=== PATIENT | female | born 1945 | race Caucasian/White ===

== ENCOUNTER → 2019-12-04 09:53 | Outpatient (BNVA) | payer MEDICARE, SELFPAY | PROVIDERS: PCP Internal Medicine; Referring Provider Internal Medicine; Visit Provider Dietitian, Registered | DX: Z76.89 Persons encountering health services in other specified circumstances (principal) ==

== ENCOUNTER 2019-12-17 13:01 | Outpatient (REF) | payer MEDICARE, SELFPAY ==
--- NOTE | 2019-12-17 13:06 | XR_ITS ---
EXAMINATION: XR CHEST CLINICAL INFORMATION: Pneumonia COMPARISON: Chest x-ray 11/01/2017 TECHNIQUE: 2 views of the chest were obtained. FINDINGS: Cardiac silhouette is normal in size. The lungs are adequately aerated. There is no lobar consolidation. No pleural effusion or pneumothorax. Mild to moderate degenerative changes of the spine. XR/XR chest 2V IMPRESSION: No acute pulmonary pathology.
== END 2019-12-17 13:02 | disposition home or self-care (01) ==
LOC: HO.HMGCX 13:01
PROVIDERS: PCP Internal Medicine; Visit Provider Internal Medicine
DX: J18.9 Pneumonia, unspecified organism (principal)
CPT/HCPCS: 71046

== ENCOUNTER → 2020-01-20 14:39 | Outpatient (BNVA) | payer MEDICARE, SELFPAY | PROVIDERS: PCP Internal Medicine; Referring Provider Internal Medicine; Visit Provider Dietitian, Registered | DX: Z76.89 Persons encountering health services in other specified circumstances (principal) ==

== ENCOUNTER 2020-02-25 06:37 | Outpatient (REF) | payer MEDICARE, SELFPAY | END 2020-02-25 06:38 | disposition home or self-care (01) | LOC: HO.LAB 06:37 | PROVIDERS: PCP Internal Medicine; Visit Provider Internal Medicine | DX: Z20.828 Contact with and (suspected) exposure to other viral communicable diseases (principal) | CPT/HCPCS: 36415; C9803; U0003 ==

== ENCOUNTER 2020-07-01 08:39 | Outpatient (REF) | payer MEDICARE, SELFPAY ==
[2020-07-01 10:15] LABS: Alanine Aminotransferase 23 U/L (0-31); Alkaline Phosphatase 105 U/L (39-117); Anion Gap 14 (12-20); Aspartate Amino Transferase 17 U/L (5-31); Blood Urea Nitrogen 24 mg/dL (9-16); Calcium 9.3 mg/dL (8.4-10.2); Carbon Dioxide 31 mmol/L (22-29); Chloride 105 mmol/L (96-108); Cholesterol 164 mg/dL; Estimated Glomerular Filt Rate 53; Glucose Fasting 110 mg/dL (60-99); HDL Cholesterol 54 mg/dL; LDL Cholesterol Calculated 87 mg/dl; Potassium 4.6 mmol/L (3.3-5.1); Sodium 145 mmol/L (135-145); Total Protein 6.6 g/dL (6.5-8.0); Triglycerides 115 mg/dL
[2020-07-01 10:24] LABS: Bilirubin Total 0.7 mg/dL (0.0-1.0)
== END 2020-07-01 08:40 | disposition home or self-care (01) ==
LOC: HO.LAB 08:39
PROVIDERS: PCP Internal Medicine; Visit Provider Internal Medicine
DX: E78.5 Hyperlipidemia, unspecified (principal); J45.909 Unspecified asthma, uncomplicated
CPT/HCPCS: 36415; 80053; 80061

== ENCOUNTER 2020-08-29 09:48 | Outpatient (REF) | payer MEDICARE, SELFPAY ==
--- NOTE | ~2020-08-29 | XR_ITS ---
EXAMINATION: XR LUMBAR SPINE. XR HIP, RIGHT. CLINICAL INFORMATION: Dorsalgia. Hip pain. COMPARISON: None TECHNIQUE: 3 views of the lumbar spine. AP and frog-lateral views of the right hip. FINDINGS: Lumbar spine: Moderate to severe multilevel degenerative disc disease and advanced facet arthropathy with grade 1 anterolisthesis of L4-L5. No acute osseous abnormality. Right hip: Moderate osteoarthritis with prominent osteophytes along the superior acetabular rim. Joint space narrowing is mild. No fracture or focal osseous lesion. Normal alignment. XR/XR hip RT min 2V IMPRESSION: Moderate to severe multilevel degenerative disc disease of the lumbar spine with facet arthrosis and grade 1 L4-L5 anterolisthesis. No acute osseous abnormality. Moderate right hip osteoarthritis. No acute abnormality.
--- NOTE | ~2020-08-29 | XR_ITS ---
EXAMINATION: XR LUMBAR SPINE. XR HIP, RIGHT. CLINICAL INFORMATION: Dorsalgia. Hip pain. COMPARISON: None TECHNIQUE: 3 views of the lumbar spine. AP and frog-lateral views of the right hip. FINDINGS: Lumbar spine: Moderate to severe multilevel degenerative disc disease and advanced facet arthropathy with grade 1 anterolisthesis of L4-L5. No acute osseous abnormality. Right hip: Moderate osteoarthritis with prominent osteophytes along the superior acetabular rim. Joint space narrowing is mild. No fracture or focal osseous lesion. Normal alignment. XR/XR lumbar spine 2-3V IMPRESSION: Moderate to severe multilevel degenerative disc disease of the lumbar spine with facet arthrosis and grade 1 L4-L5 anterolisthesis. No acute osseous abnormality. Moderate right hip osteoarthritis. No acute abnormality.
== END 2020-08-29 09:49 | disposition home or self-care (01) ==
LOC: HO.HMGCX 09:48
PROVIDERS: PCP Internal Medicine; Visit Provider Hospitalist
DX: M54.9 Dorsalgia, unspecified (principal)
CPT/HCPCS: 72100; 73502

== ENCOUNTER 2020-09-15 08:14 | Outpatient (REF) | payer MEDICARE, MEDICAID, SELFPAY ==
[2020-09-15 08:54] LABS: Hematocrit 32.6 % (37-47); Hemoglobin 10.6 g/dl (12.0-16.0); Mean Corpuscular HGB Conc 32.5 g/dl (31.0-35.0); Mean Corpuscular Hemoglobin 30.9 pg (27.0-33.0); Mean Platelet Volume 9.9 fL (9.4-12.3); Platelet Count 338 X10*3/uL (160-400); Red Blood Count 3.43 X10*6/uL (4.20-5.50); Red Cell Distribution Width 14.1 % (11.0-16.0)
[2020-09-15 09:01] LABS: Estimated Average Glucose 105 mg/dL; Hemoglobin A1c % 5.3 %
[2020-09-15 09:45] LABS: Alanine Aminotransferase 21 U/L (0-31); Albumin Level 4.1 g/dL (3.5-5.0); Alkaline Phosphatase 120 U/L (39-117); Anion Gap 12 (12-20); Aspartate Amino Transferase 22 U/L (5-31); Bilirubin Total 0.5 mg/dL (0.0-1.0); Blood Urea Nitrogen 31 mg/dL (9-16); Calcium 9.3 mg/dL (8.4-10.2); Carbon Dioxide 29 mmol/L (22-29); Chloride 106 mmol/L (96-108); Estimated Glomerular Filt Rate 44; Glucose Fasting 110 mg/dL (60-99); Potassium 4.7 mmol/L (3.3-5.1); Sodium 142 mmol/L (135-145); Total Protein 6.9 g/dL (6.5-8.0)
== END 2020-09-15 08:15 | disposition home or self-care (01) ==
LOC: HO.LAB 08:14
PROVIDERS: PCP Internal Medicine; Visit Provider Internal Medicine
DX: E78.5 Hyperlipidemia, unspecified (principal); F32.9 Major depressive disorder, single episode, unspecified; J45.909 Unspecified asthma, uncomplicated; R73.9 Hyperglycemia, unspecified
CPT/HCPCS: 36415; 80053; 83036; 85027

== ENCOUNTER 2020-10-15 10:47 | Outpatient (REF) | payer MEDICARE, MEDICAID, SELFPAY ==
[2020-10-15 12:03] LABS: Hematocrit 35.9 % (37-47); Hemoglobin 11.7 g/dl (12.0-16.0); Mean Corpuscular HGB Conc 32.6 g/dl (31.0-35.0); Mean Corpuscular Hemoglobin 30.3 pg (27.0-33.0); Mean Platelet Volume 10.3 fL (9.4-12.3); Platelet Count 303 X10*3/uL (160-400); Red Blood Count 3.86 X10*6/uL (4.20-5.50); White Blood Count 4.5 X10*3/uL (4.8-10.8)
[2020-10-15 12:39] LABS: Anion Gap 11 (12-20); Blood Urea Nitrogen 23 mg/dL (9-16); Calcium 9.3 mg/dL (8.4-10.2); Carbon Dioxide 29 mmol/L (22-29); Chloride 107 mmol/L (96-108); Estimated Glomerular Filt Rate 48; Glucose Random 121 mg/dL (60-115); Iron 63 mcg/dL (30-160); Percent Iron Saturation 16 % (15-50); Potassium 5.2 mmol/L (3.3-5.1); Sodium 142 mmol/L (135-145); Total Iron Binding Capacity 399 mcg/dL (228-428); Unsaturated Iron Binding 336 ug/dL
[2020-10-15 13:26] LABS: Glucose Urine UA NEG (NEG); Leukocyte Esterase Urine TRACE (NEG); Nitrite Urine NEG (NEG); Specific Gravity - Urine <= 1.005 (1.005-1.025); UACC Culture Trigger YES; Urine Blood NEG (NEG); Urine Ketones NEG (NEG); Urine Protein TRACE MG/DL (NEG-TRACE)
[2020-10-15 13:30] LABS: Appearance Urine CLEAR; Color Urine YELLOW
[2020-10-15 13:43] LABS: Mucus Urine 1+ /LPF; RBC Urine 0 /HPF (0); Squamous Epithelial Cell Urine 2+ /LPF
== END 2020-10-15 10:48 | disposition home or self-care (01) ==
LOC: HO.LAB 10:47
PROVIDERS: PCP Internal Medicine; Visit Provider Internal Medicine
DX: I35.0 Nonrheumatic aortic (valve) stenosis (principal); I25.10 Atherosclerotic heart disease of native coronary artery without angina pectoris; E61.1 Iron deficiency; E66.8 Other obesity; E78.5 Hyperlipidemia, unspecified; J45.909 Unspecified asthma, uncomplicated
CPT/HCPCS: 36415; 80048; 81001; 83540; 85027; 87086; 93005; 99212

== ENCOUNTER 2021-03-11 10:12 | Outpatient (REF) | payer MEDICARE, MEDICAID, SELFPAY ==
[2021-03-11 11:11] LABS: Hematocrit 36.7 % (37.0-47.0); Hemoglobin 12.1 g/dl (12.0-16.0); Mean Corpuscular Hemoglobin 30.8 pg (27.0-33.0); Mean Corpuscular Volume 93.4 fL (80.0-98.0); Mean Platelet Volume 10.1 fL (9.4-12.3); Platelet Count 289 X10*3/uL (160-400); Red Blood Count 3.93 X10*6/uL (4.20-5.50); Red Cell Distribution Width 14.1 % (11.0-16.0); White Blood Count 4.6 X10*3/uL (4.8-10.8)
[2021-03-11 11:41] LABS: Alanine Aminotransferase 24 U/L (0-31); Albumin Level 4.1 g/dL (3.5-5.0); Alkaline Phosphatase 94 U/L (39-117); Anion Gap 13 (12-20); Aspartate Amino Transferase 24 U/L (5-31); Bilirubin Total 0.7 mg/dL (0.0-1.0); Blood Urea Nitrogen 30 mg/dL (9-16); Calcium 9.4 mg/dL (8.4-10.2); Carbon Dioxide 28 mmol/L (22-29); Chloride 108 mmol/L (96-108); Cholesterol 182 mg/dL; Estimated Glomerular Filt Rate 46; Glucose Fasting 118 mg/dL (60-99); HDL Cholesterol 60 mg/dL; LDL Cholesterol Calculated 106 mg/dl; Sodium 144 mmol/L (135-145); Total Protein 7.1 g/dL (6.5-8.0); Triglycerides 84 mg/dL
[2021-03-11 12:04] LABS: Vitamin D 25-OH Total 52.7 ng/mL (>30)
== END 2021-03-11 10:13 | disposition home or self-care (01) ==
LOC: HO.LAB 10:12
PROVIDERS: PCP Internal Medicine; Visit Provider Internal Medicine
DX: Z00.00 Encounter for general adult medical examination without abnormal findings (principal); E61.1 Iron deficiency; E78.5 Hyperlipidemia, unspecified; E66.8 Other obesity; J45.909 Unspecified asthma, uncomplicated; E87.5 Hyperkalemia
CPT/HCPCS: 36415; 80048; 80053; 80061; 82306; 85027

== ENCOUNTER 2021-09-20 11:09 | Outpatient (REF) | payer MEDICARE, MEDICAID, SELFPAY ==
[2021-09-20 14:54] LABS: MANUAL DIFF FLAG NO
[2021-09-20 15:06] LABS: Basophils Percent Auto 0.7 % (0-2); Eosinophils Absolute Auto 0.2 X10*3/uL (0.0-0.4); Eosinophils Percent Auto 2.8 % (0-4); Hematocrit 38.1 % (37.0-47.0); Hemoglobin 12.3 g/dl (12.0-16.0); Imm Gran Abs Auto 0.01 X10*3/uL (0.00-0.03); Imm Gran Pct Auto 0.2 % (0.0-0.4); Lymphocytes Absolute Auto 1.2 X10*3/uL (1.2-4.9); Lymphocytes Percent Auto 21.3 % (20-40); Mean Corpuscular HGB Conc 32.3 g/dl (31.0-35.0); Mean Corpuscular Hemoglobin 30.5 pg (27.0-33.0); Mean Corpuscular Volume 94.5 fL (80.0-98.0); Mean Platelet Volume 10.6 fL (9.4-12.3); Monocytes Absolute Auto 0.5 X10*3/uL (0.1-1.2); Monocytes Percent Auto 9.3 % (2-11); Neutrophils Absolute Auto 3.8 x10*3/uL (2.0-8.3); Neutrophils Percent Auto 65.7 % (45-73); Platelet Count 299 X10*3/uL (160-400); Red Blood Count 4.03 X10*6/uL (4.20-5.50); Red Cell Distribution Width 13.9 % (11.0-16.0); White Blood Count 5.8 X10*3/uL (4.8-10.8)
[2021-09-20 15:15] LABS: Estimated Average Glucose 111 mg/dL; Hemoglobin A1c % 5.5 %
[2021-09-20 15:22] LABS: Alanine Aminotransferase 20 U/L (0-31); Albumin Level 4.2 g/dL (3.5-5.0); Alkaline Phosphatase 114 U/L (39-117); Anion Gap 14 (12-20); Aspartate Amino Transferase 20 U/L (5-31); Bilirubin Total 0.7 mg/dL (0.0-1.0); Blood Urea Nitrogen 31 mg/dL (9-16); Carbon Dioxide 27 mmol/L (22-29); Chloride 107 mmol/L (96-108); Cholesterol 180 mg/dL; Estimated Glomerular Filt Rate 46; Glucose Fasting 119 mg/dL (60-99); HDL Cholesterol 58 mg/dL; LDL Cholesterol Calculated 107 mg/dl; Potassium 4.9 mmol/L (3.3-5.1); Sodium 143 mmol/L (135-145); Total Protein 7.1 g/dL (6.5-8.0); Triglycerides 77 mg/dL
[2021-09-20 15:35] LABS: TSH reflex Free T4 1.37 uIU/mL (0.32-4.0); Vitamin D 25-OH Total 64.1 ng/mL (>30)
== END 2021-09-20 11:10 | disposition home or self-care (01) ==
LOC: HO.HMGCLDS 11:09
PROVIDERS: PCP Internal Medicine; Visit Provider Internal Medicine
DX: E53.8 Deficiency of other specified B group vitamins (principal); E55.9 Vitamin D deficiency, unspecified; E66.8 Other obesity; E78.5 Hyperlipidemia, unspecified; J45.909 Unspecified asthma, uncomplicated; R73.9 Hyperglycemia, unspecified
CPT/HCPCS: 36415; 80053; 80061; 82306; 83036; 84443; 85025

== ENCOUNTER → 2021-09-24 12:57 | Outpatient (REF) | payer OTHER, SELFPAY ==
--- NOTE | 2021-09-24 13:01 | CA_ITS ---
Transthoracic Echocardiogram Patient (Last, First, Middle): Gayla Jimenez E Gender: Female Date of : 1945 Age: 75 Procedure Date: 09/24/2021 Procedure Type: Transthoracic Echocardiogram Location: OP Height: 160.02 cm Weight: 104.33 kg BSA: 2.05 m2 Heart Rate: 87 bpm BP: 118 / 70 mmHg Director Information Security: SB Referring MD: Homero Ponce MD Senior Web Services Developer: Homero Ponce MD Symptoms: I35.0 - Nonrheumatic aortic (valve) stenosis Study Quality: Poor parasternal window/adequate apical w contrast ECG Rhythm: Sinus Conclusions: - 1. Technically limited study due to poor parasternal views 2. Normal LV systolic function with impaired relaxation filling pattern with LVEF of 55-60% 3. Mildly dilated left atrium 4. [id number] aortic stenosis and mild aortic regurgitation Findings Procedure Information Contrast agent, definity, is being given per protocol without apparent complications. Left Ventricle Normal left ventricular cavity size. The left ventricular systolic function is normal. The visually estimated ejection fraction is between 55-60%. Spectral Doppler is indicative of an impaired relaxation filling pattern. E/E prime ratio is between 8 and 15 consistent with indeterminate filling pressures. Right Ventricle Normal right ventricular cavity size. There is normal right ventricular systolic function. Atria The left atrium is mildly dilated. Interatrial shunt cannot be excluded. The right atrium was not well visualized. Aortic Valve The aortic valve was not well visualized. There is moderate calcification of the aortic valve. There is mild to moderate aortic valve stenosis. The mean gradient is 18 mmHg. The aortic valve area is 1.49 cm2. There is mild aortic valve regurgitation. Mitral Valve The mitral valve was not well visualized. There is trace mitral valve regurgitation. There is no mitral valve stenosis. Pulmonic Valve The pulmonic valve was not well visualized. Tricuspid Valve The tricuspid valve was not well visualized. Tricuspid regurgitation envelope is inadequate for calculation of right ventricular systolic pressure. There is no evidence of pulmonary hypertension. Great Vessels The aorta was not well visualized. The pulmonary artery was not well visualized. Venous The inferior vena cava is normal in size and collapses greater than 50% with inspiration. Pericardium/Pleural There is no evidence of pericardial effusion. Prior Study Comparison Changes noted compared to prior study dated: 10/02/2019. Aortic stenosis is [id number] on this study Measurements 2D Linear Measurements LVIDd: 4.63 3.9-5.3/4.2-5.9 cm LVIDd Index: 2.26 2.4-3.2/2.2-3.1 cm/m2 LVIDs: 3.40 2.0-3.6 cm LVOT Diam: 2.10 3.0+(-)1.3 cm 2D Systolic Function EF 4C: 53.40 >55% EF 2C: 53.00 >55% EF BiP: 52.60 >55% Mitral Valve MV Pk E: 0.93 MV PK A: 1.29 MV Decel Time: 283.00 E/A: 0.70 E'Lateral: 8.38 E'Medial: 6.20 E/E' Med: 15.00 E/E' Lat: 11.10 PHT: 83.00 MVA PHT: 2.65 Decel [place]: 3.28 Aortic Valve AoV Pk Patrick: 2.65 AoV Mn Patrick: 2.03 AoV VTI: 0.55 AoV Pk Grad: 28.00 Aov Mn Grad: 18.00 NEREIDA Cont.VTI: 1.49 LVOT LVOT Pk Patrick: 1.01 LVOT Mn Patrick: 0.75 LVOT VTI: 0.24 LVOT Pk Grad: 4.00 LVOT Mn Grad: 3.00 LVOT Diam: 2.10 LVOT Area: 3.46 Diastolic Function MV Pk E: 0.93 MV Pk A: 1.29 E/A: 0.70 E'Medial: 6.20 E/E' Med: 15.00 E' Laterial: 8.38 E/E' Lat: 11.10 Right Ventricle TAPSE (mm): 21.90 TVS' Patrick: 12.60 Tricuspid Valve RA Press: 3.00 Great Vessels Aorta Sinus of Valsalva: 3.90 2.0-3.5 cm Pulmonary Veins Pulm Vein S/D 1.60 Pulmonary Valve PV Pk Patrick: 0.92 Peak PV Grad: 3.00 Updated in Other Vendor System with Status of Final Homero Ponce MD electronically signed on 09/25/2021 1:08:20 PM with status of Final
== END ==
LOC: HO.CARD 12:57
PROVIDERS: Visit Provider Internal Medicine Cardiovascular Disease
DX: I35.0 Nonrheumatic aortic (valve) stenosis (principal)
CPT/HCPCS: 93306; Q9957

== ENCOUNTER 2022-06-29 12:15 | Outpatient (REF) | payer MEDICARE, OTHER, SELFPAY ==
--- NOTE | ~2022-06-29 | XR_ITS ---
EXAMINATION: XR CERVICAL SPINE CLINICAL INFORMATION: Cervicalgia COMPARISON: None available. TECHNIQUE: 3 views of the cervical spine were obtained. FINDINGS: There is straightening of cervical lordosis without fractures or subluxations. There are multilevel degenerative changes with narrowing cough C4-C5, C5-C6 consistent with a 7 intervertebral disc spaces and mild marginal spurring of the marrow as facet hypertrophy bilaterally. There is mild anterior wedging deformity of C5 vertebral body most likely chronic. Soft tissues unremarkable. XR/XR cervical spine 2V IMPRESSION: Multilevel degenerative changes of cervical spine.
== END 2022-06-29 12:16 | disposition home or self-care (01) ==
LOC: HO.HMGCX 12:15
PROVIDERS: PCP Internal Medicine; Visit Provider Internal Medicine
DX: M54.2 Cervicalgia (principal)
CPT/HCPCS: 72040

== ENCOUNTER 2022-09-09 13:00 | Outpatient (RCR) | payer OTHER, SELFPAY ==
--- NOTE | 2022-09-09 14:46 | MHC.PT.DC ---
[facility] [place] [facility] [place] [facility] [place] [facility] [address] Inez Gonsalez [address] [phone] F: [phone] F: [phone] F: [phone] F: [phone] Physical Therapy Discharge Report Diagnosis: This is a 76 yo female presenting to skilled PT with a script for neck pain. Date of Surgery: Date of Evaluation: 07/07/22 Date of Discharge: 09/09/22 Treatments to Date: 12 Cancellations to Date: 0 No Shows to Date: 0 Discharge Status: Achieved Goals Improved Function Independent with HEP Patient Elected to Stop Discharge Summary: Patient with improved pain, ROM and function. She does have mild symptoms on and off again but understands how to manage her pain with exercises and HEP. Educated her on massage therapy as needed. She has met most her goals and happy with her progress. DC to HEP. Electronically signed by: Akila Ku PT Please sign and return to therapist. Thank you for your referral.
== END 2022-09-09 14:47 | disposition home or self-care (01) ==
LOC: HO.PTCHIC 13:00
PROVIDERS: PCP Internal Medicine; Visit Provider Internal Medicine
DX: M54.2 Cervicalgia (principal)
CPT/HCPCS: 97110; 97140; 97162

== ENCOUNTER 2022-09-16 10:30 | Outpatient (REF) | payer MEDICARE, SELFPAY ==
[2022-09-16 13:20] LABS: MANUAL DIFF FLAG NO
[2022-09-16 13:35] LABS: Basophils Absolute Auto 0.1 X10*3/uL (0.0-0.2); Basophils Percent Auto 0.9 % (0-2); Eosinophils Absolute Auto 0.2 X10*3/uL (0.0-0.4); Eosinophils Percent Auto 2.8 % (0-4); Hematocrit 37.4 % (37.0-47.0); Hemoglobin 12.3 g/dl (12.0-16.0); Imm Gran Abs Auto 0.01 X10*3/uL (0.00-0.03); Imm Gran Pct Auto 0.2 % (0.0-0.4); Lymphocytes Absolute Auto 1.3 X10*3/uL (1.2-4.9); Lymphocytes Percent Auto 23.2 % (20-40); Mean Corpuscular HGB Conc 32.9 g/dl (31.0-35.0); Mean Corpuscular Hemoglobin 31.3 pg (27.0-33.0); Mean Corpuscular Volume 95.2 fL (80.0-98.0); Mean Platelet Volume 10.6 fL (9.4-12.3); Monocytes Absolute Auto 0.4 X10*3/uL (0.1-1.2); Monocytes Percent Auto 7.9 % (2-11); Neutrophils Absolute Auto 3.5 x10*3/uL (2.0-8.3); Platelet Count 312 X10*3/uL (160-400); Red Blood Count 3.93 X10*6/uL (4.20-5.50); Red Cell Distribution Width 14.2 % (11.0-16.0); White Blood Count 5.4 X10*3/uL (4.8-10.8)
[2022-09-16 14:07] LABS: Estimated Average Glucose 108 mg/dL; Hemoglobin A1c % 5.4 %
[2022-09-16 14:18] LABS: Alanine Aminotransferase 21 U/L (0-31); Albumin Level 3.8 g/dL (3.5-5.0); Alkaline Phosphatase 95 U/L (39-117); Anion Gap 17 (12-20); Aspartate Amino Transferase 20 U/L (5-31); Bilirubin Total 0.5 mg/dL (0.0-1.0); Blood Urea Nitrogen 23 mg/dL (9-16); Calcium 9.5 mg/dL (8.4-10.2); Carbon Dioxide 23 mmol/L (22-29); Chloride 107 mmol/L (96-108); Cholesterol 155 mg/dL; Estimated Glomerular Filt Rate 60; Glucose Fasting 128 mg/dL (60-99); HDL Cholesterol 60 mg/dL; LDL Cholesterol Calculated 80 mg/dl; Potassium 4.4 mmol/L (3.3-5.1); Sodium 143 mmol/L (135-145); Total Protein 6.9 g/dL (6.5-8.0); Triglycerides 76 mg/dL
[2022-09-16 14:22] LABS: Vitamin D 25-OH Total 47.4 ng/mL (>30)
[2022-09-16 14:26] LABS: B Type Natriuretic Peptide 72 pg/mL (<100); Folate 16.1 ng/mL (> or = 4.0); Vitamin B12 810 pg/mL (200-900)
[2022-09-16 14:47] LABS: Creatinine Urine 84.57 mg/dL; Microalbum/Creatinine Ratio Ur 17.7 ug/mg cr
== END 2022-09-16 10:31 | disposition home or self-care (01) ==
LOC: HO.HMGCLDS 10:30
PROVIDERS: PCP Internal Medicine; Visit Provider Internal Medicine
DX: E53.8 Deficiency of other specified B group vitamins (principal); E55.9 Vitamin D deficiency, unspecified; E61.1 Iron deficiency; E78.5 Hyperlipidemia, unspecified; I25.10 Atherosclerotic heart disease of native coronary artery without angina pectoris; R73.9 Hyperglycemia, unspecified; I35.0 Nonrheumatic aortic (valve) stenosis
CPT/HCPCS: 36415; 80053; 80061; 82043; 82306; 82607; 82746; 83036; 83880; 85025

== ENCOUNTER 2022-09-21 10:37 | Outpatient (AMB) | payer MEDICARE, MEDICAID, SELFPAY ==
--- NOTE | 2022-09-21 10:39 | MHC.PC.OV ---
Vital Signs 09/21/22 10:41 Height 5 ft 3 in Weight 231 lb BMI 40.9 BP 120/80 Blood Pressure Location Lt brachial Position Sitting Pulse 74 Pulse Source Pulse Oximeter Pulse Oximetry (%) 97 Oxygen Delivery Method Room Air Intake Visit Reasons: PE Allergies N.K.D.A. Allergy (Unknown, Uncoded 09/21/22 10:42) unknown Medication List - Last Reconciled 09/21/22 by Hoda Valentine MD albuterol sulfate 90 mcg/actuation 2 puffs PO Q4H PRN aspirin 81 mg PO DAILY atorvastatin 80 mg PO DAILY cholecalciferol (vitamin D3) 25 mcg PO DAILY flaxseed oil 1,000 mg PO DAILY fluticasone furoate-vilanterol 200-25 mcg/dose (Breo Ellipta) 1 inh inhalation DAILY incontinence pad, liner, disp (Poise Pads) 1 eight times a day krill oil PO ropinirole 0.5 mg PO DAILY sertraline 50 mg PO DAILY tiotropium bromide 1.25 mcg/actuation 2 puffs PO DAILY triamcinolone acetonide 0.1% 1 appl topical BID turmeric PO vitamin B complex 1 tab PO DAILY Tobacco use date assessed: 06/29/22 Fall risk assessment: No Falls in past year Last assessed Fall Risk: 09/21/22 Dental Screening Dental Screen Date: 09/21/22 Did you have a dental visit in the last 12 months?: Yes Did you have a dental problem in the last 6 months where you did not have access to dental care?: No Was dental information given to patient?: Patient has dentist HPI PE HPI Details Pt presents for PE. PFSH Medical History Annual physical exam Aortic stenosis Asthma CAD (coronary artery disease) Depression History of mammogram History of PFTs Hyperglycemia Hyperkalemia Hyperlipidemia Iron deficiency Osteoarthritis Pain of left thumb Pneumonia Sinusitis, acute Surgical History Hx of cardiac cath Family History Father No problems noted. Mother No problems noted. Social History Housing: House Patient Tobacco Use Status: Never used Tobacco e-Cigarette/Vaping Use: Never Used Current occupational status: retired Cognitive needs: No Hearing needs: No Vision needs: Yes Questionnaire PHQ-9 Over the last 2 weeks, how often have you been bothered by any of the following problems? 1. Little interest or pleasure in doing things: several days 2. Feeling down, depressed, or hopeless: several days 3. Trouble falling or staying asleep, or sleeping too much: several days 4. Feeling tired or having little energy: several days 5. Poor appetite or overeating: several days 6. Feeling bad about yourself - or that you are a failure or have let yourself or your family down: several days 7. Trouble concentrating on things, such as reading the newspaper or watching television: several days 8. Moving or speaking so slowly that other people could have noticed. Or the opposite - being so fidgety or restless that you have been moving around a lot more than usual: not at all 9. Thoughts that you would be better off or of hurting yourself in some way: not at all Total score: 7 Source: Developed by Drs. Sukhjinder Lopez, Charlie Frias and colleagues, with an educational solo from [employer]. Thrive Questionnaire Date Thrive assessed: 03/23/22 AUDIT C Alcohol Use Questionnaire (AUDIT-C) 1. How often do you have a drink containing alcohol?: Monthly or less 2. How many drinks containing alcohol do you have on a typical day when you are drinking?: 1 or 2 3. How often do you have six or more drinks on one occasion?: Never Total Score: 1 Score Reviewed/Action Taken: No JOSE-7 AMB Questionnaire JOSE-7 Date JOSE - 7 assessed: 03/23/22 Source: Developed by Drs. Sukhjinder Lopez, Bel Hanks, Charlie Choi and colleagues, with an educational solo from [employer]. Review of Systems Const All systems reviewed & are unremarkable except as noted in HPI and below Reports no additional complaints Eyes Reports no additional complaints ENT Reports no additional complaints Card Reports no additional complaints and Reports leg edema Resp Reports no additional complaints GI Reports no additional complaints Reports no additional complaints Neuro Reports no additional complaints Physical exam (Primary Care) Vital Signs: Last Vital Signs Pulse 74 09/21/22 10:41 BP 120/80 09/21/22 10:41 Pulse Ox 97 09/21/22 10:41 Oxygen Delivery Method Room Air 09/21/22 10:41 BMI result Body Mass Index 40.9 Tobacco/Smoking Status: Tobacco use Status Tobacco use date assessed 06/29/22 09/21/22 10:40 Patient Tobacco Use Status Never used Tobacco 09/21/22 10:40 e-Cigarette/Vaping Use Never Used 09/21/22 10:40 Thrive Assessment: Date of Thrive Assessment Date Thrive assessed 03/23/22 09/21/22 10:40 Const General: no acute distress HENMT Head: Yes normal to inspection General nose exam: Normal external nose present Face and sinus: Yes normal facial exam Mouth: Normal oral and palatal mucosa present Throat: Yes posterior oropharynx normal Eyes General: appearance normal, both eyes and all related structures Neck Neck: Yes no lymphadenopathy and Yes supple Resp Effort & Inspection: normal respiratory effort Auscultation: clear to auscultation bilaterally Cardio Rhythm: regular rhythm Heart sounds: S1 normal heart sound present and S2 normal heart sound present GI Inspection: Yes normal to inspection Palpation (GI): Soft to palpation Percussion: Yes normal to percussion Auscultation: normal bowel sounds Assessment and Plan Assessment & Plan (1) Aortic stenosis: Comment: Mild September 2019, mild -mod 10/11, follow-up with Cardiology Code(s): I35.0 - Nonrheumatic aortic (valve) stenosis Plan: Follow-up with Cardiology for annual echo (2) Annual physical exam: Code(s): Z00.00 - Encounter for general adult medical examination without abnormal findings Plan: Well-balanced diet regular physical activity weight loss discussed with the patient. (3) Hyperglycemia: Code(s): R73.9 - Hyperglycemia, unspecified Plan: A1c is 5.6 continue ADA diet increase physical activity and weight loss (4) Hyperlipidemia: Code(s): E78.5 - Hyperlipidemia, unspecified Plan: Continue statin (5) Asthma: Code(s): J45.909 - Unspecified asthma, uncomplicated Plan: Continue current inhalers and add antihistamine for chronic postnasal drip Orders: Orders Comprehensive [place]. Panel Fast 6 Months E78.5 - Hyperlipidemia, unspecified, R73.9 - Hyperglycemia, unspecified, Z00.00 - Encounter for general adult medical examination without abnormal findings Hemoglobin A1c 6 Months E78.5 - Hyperlipidemia, unspecified, R73.9 - Hyperglycemia, unspecified, Z00.00 - Encounter for general adult medical examination without abnormal findings Lipid Panel 6 Months E78.5 - Hyperlipidemia, unspecified, R73.9 - Hyperglycemia, unspecified, Z00.00 - Encounter for general adult medical examination without abnormal findings Complete Blood Count Auto Diff 6 Months E78.5 - Hyperlipidemia, unspecified, R73.9 - Hyperglycemia, unspecified, Z00.00 - Encounter for general adult medical examination without abnormal findings Coding Level of Care Code Est Pt Prev Care >65y(68054) Diagnoses Aortic stenosis I35.0 Annual physical exam Z00.00 Hyperglycemia R73.9 Hyperlipidemia E78.5 Asthma J45.909
[2022-09-21 10:41] VITALS: BP 120/80; PULSE 74; O2SAT 97; BMI 40.9
== END 2022-09-21 11:35 | disposition home or self-care (01) ==
PROVIDERS: Visit Provider Internal Medicine
DX: Z00.00 Encounter for general adult medical examination without abnormal findings (principal); I35.0 Nonrheumatic aortic (valve) stenosis; R73.9 Hyperglycemia, unspecified; J45.909 Unspecified asthma, uncomplicated; E78.5 Hyperlipidemia, unspecified
CPT/HCPCS: 99397

== ENCOUNTER → 2022-10-14 10:52 | Outpatient (REF) | payer MEDICARE, SELFPAY ==
--- NOTE | 2022-10-14 10:54 | CA_ITS ---
Transthoracic Echocardiogram Patient (Last, First, Middle): Gayla Jimenez E Gender: Female Date of : 1945 Age: 76 Procedure Date: 10/14/2022 Procedure Type: Transthoracic Echocardiogram Location: OP Height: 160.02 cm Weight: 102.06 kg BSA: 2.03 m2 Heart Rate: bpm BP: 130 / 74 mmHg Rn Clinical Resource: TO Referring MD: Homero Ponce MD Symptoms: I35.0 - Nonrheumatic aortic (valve) stenosis Study Quality: Poor parasternal/Fair apical Conclusions: - The left ventricular systolic function is normal. The calculated ejection fraction is 59% by biplane method. - Overall, paradoxical low flow, low gradient, moderate to early severe aortic stenosis. Findings Procedure Information Contrast agent, definity, is being given per protocol without apparent complications. Left Ventricle Normal left ventricular cavity size. The left ventricular systolic function is normal. The calculated ejection fraction is 59% by biplane method. There is no evidence of regional wall motion abnormalities. Evidence suggests grade I (mild) diastolic dysfunction. Right Ventricle Normal right ventricular cavity size and systolic function. Atria The left atrium is mildly dilated. The right atrium is normal in size. Aortic Valve The aortic valve was not well visualized. There is moderate calcification of the aortic valve. The peak aortic velocity is 3.04 m/s with a calculated peak gradient of 37 mmHg. The mean gradient is 24 mmHg. The aortic valve area is 0.98 cm2. Dimensionless index 0.29. Stroke volume index 35ml/m2. Overall, paradoxical low flow, low gradient, moderate to early severe aortic stenosis. Mitral Valve There is mild mitral annular calcification. There is trace mitral valve regurgitation. There is no mitral valve stenosis. Pulmonic Valve The pulmonic valve was not well visualized. Tricuspid Valve There is trace tricuspid valve regurgitation. There is no evidence of pulmonary hypertension. Great Vessels The asc aorta is normal in size. Venous The inferior vena cava is normal in size and collapses greater than 50% with inspiration. Pericardium/Pleural There is no evidence of pericardial effusion. Prior Study Comparison Changes noted compared to prior study dated: 09/24/2021. Progression of aortic stenosis. Measurements 2D Linear Measurements IVSd: 1.33 0.6-0.9/0.6-1.0 cm LVIDd: 5.06 3.9-5.3/4.2-5.9 cm LVIDd Index: 2.49 2.4-3.2/2.2-3.1 cm/m2 LVIDs: 3.76 2.0-3.6 cm LVPWd: 1.06 0.7-1.1 cm LV Mass: 295.30 67-162/88-224 g LV Mass Index: 145.47 43-95/49-115 g/m2 LVOT Diam: 2.10 3.0+(-)1.3 cm 2D Systolic Function EF 4C: 60.10 >55% EF 2C: 56.30 >55% EF BiP: 59.00 >55% Mitral Valve MV VTI: 0.28 MV Pk Patrick: 1.39 MV Mn Patrick: 0.83 MV Pk Grad: 8.00 MV Mn Grad: 3.00 MV Pk E: 0.57 MV PK A: 1.21 MV Decel Time: 172.00 E/A: 0.50 E'Lateral: 5.98 E'Medial: 4.46 E/E' Med: 12.90 E/E' Lat: 9.60 PHT: 50.00 MVA PHT: 4.40 MVA Continuity: 2.48 Decel [place]: 3.33 Aortic Valve AoV Pk Patrick: 3.04 AoV Mn Patrick: 2.34 AoV VTI: 0.71 AoV Pk Grad: 37.00 Aov Mn Grad: 24.00 NEREIDA Cont.VTI: 0.98 AI Pk Patrick: 3.81 AI [place]: 2.79 LVOT LVOT Pk Patrick: 0.89 LVOT Mn Patrick: 0.60 LVOT VTI: 0.20 LVOT Pk Grad: 3.00 LVOT Mn Grad: 2.00 LVOT Diam: 2.10 LVOT Area: 3.46 Diastolic Function MV Pk E: 0.57 MV Pk A: 1.21 E/A: 0.50 E'Medial: 4.46 E/E' Med: 12.90 E' Laterial: 5.98 E/E' Lat: 9.60 Right Ventricle TAPSE (mm): 24.90 TVS' Patrick: 10.90 Tricuspid Valve TR Pk Patrick: 2.26 TR Pk Grad: 20.00 RA Press: 3.00 RVSP: 23.00 Great Vessels Aorta Sinus of Valsalva: 3.79 2.0-3.5 cm Ao Asc: 2.90 2.1-3.4 cm Updated in Other Vendor System with Status of Final Cristian Beckford MD electronically signed on 10/16/2022 11:52:27 AM with status of Final
== END ==
LOC: HO.CARD 10:52
PROVIDERS: PCP Internal Medicine; Visit Provider Internal Medicine Cardiovascular Disease
DX: I35.0 Nonrheumatic aortic (valve) stenosis (principal); I25.10 Atherosclerotic heart disease of native coronary artery without angina pectoris
CPT/HCPCS: 93306; Q9957

== ENCOUNTER → 2022-10-14 10:54 | Outpatient (BNV) | payer MEDICARE, SELFPAY | PROVIDERS: PCP Internal Medicine; Visit Provider Internal Medicine | DX: I35.0 Nonrheumatic aortic (valve) stenosis (principal) | CPT/HCPCS: 93306 ==

== ENCOUNTER 2022-11-03 09:33 | Outpatient (AMB) | payer MEDICARE, SELFPAY ==
--- NOTE | 2022-11-03 09:47 | MHC.OFFVIS ---
Intake Vital Signs 11/03/22 09:48 Height 5 ft 3 in Weight 227 lb 1.218 oz BMI 40.2 BP 132/80 Blood Pressure Location Lt brachial Position Sitting Pulse 82 Intake Visit Reasons: 1 year follow-up after echo with ekg Intake Note: Follow-up after echo with ekg c/o sob and hearing her heart beat at night when lying down Seat Cover Cutter Required: No Allergies N.K.D.A. Allergy (Unknown, Uncoded 09/21/22 10:42) unknown Medication List - Last Reconciled 11/03/22 by Homero Ponce MD albuterol sulfate 90 mcg/actuation 2 puffs PO Q4H PRN aspirin 81 mg PO DAILY atorvastatin 80 mg PO DAILY cholecalciferol (vitamin D3) 25 mcg PO DAILY flaxseed oil 1,000 mg PO DAILY fluticasone furoate-vilanterol 200-25 mcg/dose (Breo Ellipta) 1 inh inhalation DAILY incontinence pad, liner, disp (Poise Pads) 1 eight times a day krill oil PO ropinirole 0.5 mg PO DAILY sertraline 50 mg PO DAILY tiotropium bromide 1.25 mcg/actuation 2 puffs PO DAILY triamcinolone acetonide 0.1% 1 appl topical BID vitamin B complex 1 tab PO DAILY HPI HPI Comments History of Present Illness Details Gayla comes for follow-up after recent echocardiogram. This shows paradoxical low-flow moderately severe aortic stenosis. Patient does complain of exertional shortness of breath although she says she can push through her activity level and continue to have active lifestyle. She does not have limitations related to her shortness of breath. She denies any orthopnea, PND. Denies any exertional chest pressure lightheadedness. No syncopal episodes. She takes all her medications. Last LDL is improved marginally to 80 mg/dL. PFSH Medical History Hyperkalemia CAD (coronary artery disease) Aortic stenosis Annual physical exam Iron deficiency Hyperglycemia Depression Pain of left thumb Pneumonia Sinusitis, acute History of PFTs History of mammogram Osteoarthritis Hyperlipidemia Asthma Surgical History Hx of cardiac cath Family History Father No problems noted. Mother No problems noted. Social History Housing: House Patient Tobacco Use Status: Never used Tobacco e-Cigarette/Vaping Use: Never Used Current occupational status: retired Cognitive needs: No Hearing needs: No Vision needs: Yes Review of Systems Const Denies chills, Denies fatigue, Denies fever(s), Denies frequent falls, Denies weakness, Denies weight gain and Denies weight loss ENT Denies dizziness Card Denies chest pain, Denies leg edema, Denies lightheadedness, Denies palpitations, Denies dyspnea, Denies dyspnea on exertion, Denies orthopnea and Denies other (loss of consciousness) Resp Denies cough, Denies dyspnea and Denies dyspnea on exertion GI Denies hematochezia and Denies change in stool character Musc Denies abnormal gait, Denies muscle weakness, Denies numbness, Denies radiating pain into limb and Denies tingling Neuro Denies abnormal gait, Denies dizziness, Denies frequent falls, Denies numbness, Denies tingling and Denies weakness Endo Denies fatigue and Denies palpitations Physical Exam Vital Signs: Last Vital Signs Pulse 82 11/03/22 09:48 BP 132/80 11/03/22 09:48 BMI result Body Mass Index 40.2 Const General: cooperative, comfortable, no acute distress, alert and awake Nutritional Appearance: obese Orientation/consciousness: patient oriented x3 Limitations: no limitations Neck Neck: Yes trachea midline, Yes supple and Yes no JVD Resp Effort & Inspection: normal respiratory effort Auscultation: clear to auscultation bilaterally Cardio Jugular venous distension: no JVD Palpation: normal PMI Rate: regular rate Rhythm: regular rhythm Heart sounds: S1 normal heart sound present, S2 normal heart sound present (Soft), no click, no gallops and Murmur heart sound present systolic late, decrescendo and crescendo Peripheral pulses: Peripheral pulses 2+ throughout GI Inspection: Yes obesity Auscultation: normal bowel sounds Skin General skin exam: no rashes or lesions noted Neuro General: patient oriented x3 and no focal motor deficits Extrem General: Yes no clubbing, cyanosis or edema Office Procedures EKG Details: EKG shows normal sinus rhythm with normal EKG [id number], Complete Assessment & Plan Assessment & Plan (1) Aortic stenosis: Comment: Mild September 2019, mild -mod 10/11, follow-up with Cardiology Code(s): I35.0 - Nonrheumatic aortic (valve) stenosis Plan: Progressive calcific aortic stenosis, which is moderately severe at this point time with paradoxical low-flow aortic stenosis. Clinically having some shortness of breath but no other classic symptoms of aortic stenosis. We discussed about management of aortic stenosis and cardinal symptoms associated with aortic stenosis. Advised to call me with progressive symptoms. Will require follow-up in 6 months clinically as well as after an echocardiogram. We discussed about the process of aortic valve replacement and transcatheter aortic valve replacement. She understands and agrees. Continue current medical therapy with aspirin and statins. However progressive nature of calcific aortic stenosis were discussed with her. She understands agrees. (2) CAD (coronary artery disease): Code(s): I25.10 - Atherosclerotic heart disease of [place] coronary artery without angina pectoris Plan: CAD which is nonobstructive by cardiac catheterization. Currently requires no further workup. Continue aggressive medical therapy with aspirin statin therapy. Continue participate in heart healthy lifestyle with progressive activity level and weight loss program. Will follow up in the clinic in 6 months time, sooner p.r.n.. Thank you for allowing me to partake in her care Orders: Orders CA echo transthoracic complete 6 Months I35.0 - Nonrheumatic aortic (valve) stenosis Coding Level of Care Code Est Pt Level 4 (99441) Diagnoses Aortic stenosis I35.0 CAD (coronary artery disease) I25.10 CPT Codes EKG - CPT: 37222-[id number], Complete ([id number])
[2022-11-03 09:48] VITALS: BP 132/80; PULSE 82; BMI 40.2
== END 2022-11-03 10:08 | disposition home or self-care (01) ==
PROVIDERS: PCP Internal Medicine; Referring Provider Internal Medicine; Visit Provider Internal Medicine Cardiovascular Disease
DX: I35.0 Nonrheumatic aortic (valve) stenosis (principal); I25.10 Atherosclerotic heart disease of native coronary artery without angina pectoris
CPT/HCPCS: 93010; 99214

== ENCOUNTER → 2022-11-03 09:33 | Outpatient (BNVA) | payer MEDICARE, SELFPAY | PROVIDERS: PCP Internal Medicine; Referring Provider Internal Medicine; Visit Provider Internal Medicine Cardiovascular Disease | DX: I25.10 Atherosclerotic heart disease of native coronary artery without angina pectoris (principal); I35.0 Nonrheumatic aortic (valve) stenosis | CPT/HCPCS: 93005; 99212 ==

== ENCOUNTER 2023-01-02 10:57 | Outpatient (AMB) | payer OTHER, SELFPAY ==
--- NOTE | 2023-01-02 11:00 | A.OFFPC_ITS ---
Vital Signs 01/02/23 11:01 Height 5 ft 3 in Weight 224 lb BMI 39.7 BP 118/70 Blood Pressure Location Rt brachial Position Sitting Pulse 79 Pulse Source Pulse Oximeter Pulse Oximetry (%) 97 Oxygen Delivery Method Room Air Intake Visit Reasons: 6 month follow up Allergies N.K.D.A. Allergy (Unknown, Uncoded 01/02/23 11:01) unknown Medication List - Last Reconciled 01/02/23 by Hoda Valentine MD albuterol sulfate 90 mcg/actuation 2 puffs PO Q4H PRN aspirin 81 mg PO DAILY atorvastatin 80 mg PO DAILY cholecalciferol (vitamin D3) 25 mcg PO DAILY flaxseed oil 1,000 mg PO DAILY fluticasone furoate-vilanterol 200-25 mcg/dose (Breo Ellipta) 1 inh inhalation DAILY incontinence pad, liner, disp (Poise Pads) 1 eight times a day krill oil PO ropinirole 0.5 mg PO DAILY sertraline 50 mg PO DAILY vitamin B complex 1 tab PO DAILY Tobacco use date assessed: 06/29/22 Fall risk assessment: No Falls in past year Last assessed Fall Risk: 01/02/23 HPI 6 month follow up HPI Details Pt presents for hyperlipid, on statin. COPD stable on Anoro. Patient follows up with Cardiology for worsening aortic stenosis and has an echocardiogram scheduled for April. She denies exertional chest pain palpitations shortness of breath or lightheadedness PFSH Medical History Hyperkalemia CAD (coronary artery disease) Aortic stenosis Annual physical exam Iron deficiency Hyperglycemia Depression Pain of left thumb Pneumonia Sinusitis, acute History of PFTs History of mammogram Osteoarthritis Hyperlipidemia Asthma Surgical History Hx of cardiac cath Family History Father No problems noted. Mother No problems noted. Social History Housing: House Patient Tobacco Use Status: Never used Tobacco e-Cigarette/Vaping Use: Never Used Current occupational status: retired Cognitive needs: No Hearing needs: No Vision needs: Yes Questionnaire Thrive Questionnaire Date Thrive assessed: 03/23/22 JOSE-7 AMB Questionnaire JOSE-7 Date JOSE - 7 assessed: 03/23/22 Source: Developed by DrsKerline Lopez, Bel Hanks, Charlie Choi and colleagues, with an educational solo from [employer]. Review of Systems Const All systems reviewed & are unremarkable except as noted in HPI and below Reports no additional complaints Eyes Reports no additional complaints ENT Reports no additional complaints Card Reports no additional complaints GI Reports no additional complaints Reports no additional complaints Physical exam (Primary Care) Vital Signs: Last Vital Signs Pulse 79 01/02/23 11:01 BP 118/70 01/02/23 11:01 Pulse Ox 97 01/02/23 11:01 Oxygen Delivery Method Room Air 01/02/23 11:01 BMI result Body Mass Index 39.7 Tobacco/Smoking Status: Tobacco use Status Tobacco use date assessed 06/29/22 01/02/23 11:04 Patient Tobacco Use Status Never used Tobacco 01/02/23 11:04 e-Cigarette/Vaping Use Never Used 01/02/23 11:04 Thrive Assessment: Date of Thrive Assessment Date Thrive assessed 03/23/22 01/02/23 11:04 Const General: no acute distress HENMT Head: Yes normal to inspection Ears: hearing grossly normal bilaterally Neck Neck: Yes no lymphadenopathy and Yes supple Resp Effort & Inspection: normal respiratory effort Auscultation: clear to auscultation bilaterally Cardio Rhythm: regular rhythm Heart sounds: S1 normal heart sound present and S2 normal heart sound present GI Inspection: Yes normal to inspection Palpation (GI): Soft to palpation Percussion: Yes normal to percussion Auscultation: normal bowel sounds Assessment and Plan Assessment & Plan (1) Hyperlipidemia: Code(s): E78.5 - Hyperlipidemia, unspecified Plan: Continue statin (2) Aortic stenosis: Comment: Mild September 2019, mild -mod 10/11, follow-up with Cardiology Code(s): I35.0 - Nonrheumatic aortic (valve) stenosis Plan: Follow-up with Cardiology for repeat echo in April (3) Hyperglycemia: Code(s): R73.9 - Hyperglycemia, unspecified Plan: A1c was 5.4 in August, ADA diet increase exercise weight loss discussed with the patient recheck A1c in 5 months (4) COPD (chronic obstructive pulmonary disease): Code(s): J44.9 - Chronic obstructive pulmonary disease, unspecified Plan: Continue Anoro (5) Obesity: Code(s): E66.9 - Obesity, unspecified Plan: Weight loss discussed with the patient (6) Iron deficiency: Code(s): E61.1 - Iron deficiency Orders: Orders Comprehensive [place]. Panel Fast 5 Months E78.5 - Hyperlipidemia, unspecified Microalbumin, Random (w Creat) 5 Months E78.5 - Hyperlipidemia, unspecified Hemoglobin A1c 5 Months E78.5 - Hyperlipidemia, unspecified Lipid Panel 5 Months E78.5 - Hyperlipidemia, unspecified Complete Blood Count Auto Diff 5 Months E61.1 - Iron deficiency IRON PROFILE 5 Months E61.1 - Iron deficiency Vitamin B12 and Folate 5 Months E61.1 - Iron deficiency Coding Level of Care Code Est Pt Level 4 (79205) Diagnoses Hyperlipidemia E78.5 Aortic stenosis I35.0 Hyperglycemia R73.9 COPD (chronic obstructive pulmonary disease) J44.9 Obesity E66.9 Iron deficiency E61.1
[2023-01-02 11:01] VITALS: BP 118/70; PULSE 79; O2SAT 97; BMI 39.7
== END 2023-01-02 12:04 | disposition home or self-care (01) ==
PROVIDERS: Visit Provider Internal Medicine
DX: J44.9 Chronic obstructive pulmonary disease, unspecified (principal); E78.5 Hyperlipidemia, unspecified; I35.0 Nonrheumatic aortic (valve) stenosis; Z68.39 Body mass index [BMI] 39.0-39.9, adult; R73.9 Hyperglycemia, unspecified; E66.9 Obesity, unspecified; E61.1 Iron deficiency
CPT/HCPCS: 99214

== ENCOUNTER → 2023-04-25 10:48 | Outpatient (REF) | payer OTHER, SELFPAY ==
--- NOTE | 2023-04-25 10:51 | CA_ITS ---
Transthoracic Echocardiogram Patient (Last, First, Middle): Gayla Jimenez E Gender: Female Date of : 1945 Age: 77 Procedure Date: 04/25/2023 Procedure Type: Transthoracic Echocardiogram Location: OP Height: 160.02 cm Weight: 101.61 kg BSA: 2.03 m2 Heart Rate: 76 bpm BP: 148 / 72 mmHg Supervisor Graphite: SB Referring MD: Homero Ponce MD Symptoms: I35.0 - Nonrheumatic aortic (valve) stenosis Study Quality: Fair ECG Rhythm: Sinus Conclusions: - The left ventricular systolic function is normal. The calculated ejection fraction is 59% by biplane method. - There is moderate aortic valve stenosis. Findings Procedure Information Contrast agent, definity, is being given per protocol without apparent complications. The quality of the study was fair and technically difficult. The study quality is limited by patients body habitus. Left Ventricle Normal left ventricular cavity size. The left ventricular systolic function is normal. The calculated ejection fraction is 59% by biplane method. There is no evidence of regional wall motion abnormalities. Evidence suggests grade I (mild) diastolic dysfunction. Possible mild LVH. Difficult to assess. Right Ventricle Normal right ventricular cavity size and systolic function. Atria The left atrium is mildly dilated. The right atrium is normal in size. Aortic Valve The aortic valve was not well visualized. There is moderate calcification of the aortic valve. There is moderate aortic valve stenosis. There is trace (trivial) aortic valve regurgitation. Dimensionless index 0.33. Stroke volume index 35ml/m2. Mitral Valve There is mild mitral annular calcification. There is no mitral valve regurgitation. There is no mitral valve stenosis. Pulmonic Valve The pulmonic valve is likely normal. Tricuspid Valve There is trace tricuspid valve regurgitation. Tricuspid regurgitation envelope is inadequate for calculation of right ventricular systolic pressure. Great Vessels The asc aorta is normal in size. Venous The inferior vena cava is normal in size and collapses greater than 50% with inspiration. Pericardium/Pleural There is no evidence of pericardial effusion. Prior Study Comparison No significant change compared to prior study dated: 10/14/2022. Measurements 2D Linear Measurements LVOT Diam: 2.00 3.0+(-)1.3 cm 2D Systolic Function EF 4C: 62.80 >55% EF 2C: 54.90 >55% EF BiP: 58.60 >55% Mitral Valve MV Pk E: 0.88 MV PK A: 1.22 MV Decel Time: 236.00 E/A: 0.70 E'Lateral: 7.29 E'Medial: 5.33 E/E' Med: 16.50 E/E' Lat: 12.10 PHT: 69.00 MVA PHT: 3.19 Decel [place]: 3.74 Aortic Valve AoV Pk Patrick: 3.03 AoV Mn Patrick: 2.31 AoV VTI: 0.75 AoV Pk Grad: 37.00 Aov Mn Grad: 23.00 NEREIDA Cont.VTI: 0.93 LVOT LVOT Pk Patrick: 1.00 LVOT Mn Patrick: 0.68 LVOT VTI: 0.22 LVOT Pk Grad: 4.00 LVOT Mn Grad: 2.00 LVOT Diam: 2.00 LVOT Area: 3.14 Diastolic Function MV Pk E: 0.88 MV Pk A: 1.22 E/A: 0.70 E'Medial: 5.33 E/E' Med: 16.50 E' Laterial: 7.29 E/E' Lat: 12.10 Right Ventricle TAPSE (mm): 21.40 TVS' Patrick: 10.70 Tricuspid Valve RA Press: 3.00 Great Vessels Aorta Sinus of Valsalva: 3.60 2.0-3.5 cm Ao Asc: 2.60 2.1-3.4 cm Pulmonary Valve PV Pk Patrick: 0.81 Peak PV Grad: 3.00 Updated in Other Vendor System with Status of Final Cristian Beckford MD electronically signed on 04/26/2023 7:45:19 AM with status of Final
== END ==
LOC: HO.CARD 10:48
PROVIDERS: PCP Internal Medicine; Visit Provider Internal Medicine Cardiovascular Disease
DX: I35.0 Nonrheumatic aortic (valve) stenosis (principal)
CPT/HCPCS: 93306; Q9957

== ENCOUNTER → 2023-04-25 10:51 | Outpatient (BNV) | payer OTHER, SELFPAY | PROVIDERS: PCP Internal Medicine; Visit Provider Internal Medicine | DX: I35.0 Nonrheumatic aortic (valve) stenosis (principal) | CPT/HCPCS: 93306 ==

== ENCOUNTER 2023-05-02 12:34 | Outpatient (AMB) | payer MEDICARE, SELFPAY ==
[2023-05-02 12:49] VITALS: BP 120/84; PULSE 84; BMI 39.8
--- NOTE | 2023-05-02 12:49 | A.OFFVIS_ITS ---
Intake Vital Signs 05/02/23 12:49 Height 5 ft 3 in Weight 224 lb 13.944 oz BMI 39.8 BP 120/84 Blood Pressure Location Lt brachial Position Sitting Pulse 84 Intake Visit Reasons: 6M Echo Intake Note: 6 month follow-up after echo feeling ok Child Support Investigator Required: No Allergies N.K.D.A. Allergy (Unknown, Uncoded 01/02/23 11:01) unknown Medication List - Last Reconciled 05/02/23 by Homero Ponce MD albuterol sulfate 90 mcg/actuation 2 puffs PO Q4H PRN aspirin 81 mg PO DAILY atorvastatin 80 mg PO DAILY Breo Ellipta 200-25 mcg/dose (fluticasone furoate-vilanterol) 1 inh inhalation DAILY NS cholecalciferol (vitamin D3) 25 mcg PO DAILY flaxseed oil 1,000 mg PO DAILY incontinence pad, liner, disp (Poise Pads) 1 eight times a day krill oil PO ropinirole 0.5 mg PO DAILY sertraline 50 mg PO DAILY tiotropium bromide 1.25 mcg/actuation 2 puffs PO DAILY vitamin B complex 1 tab PO DAILY HPI HPI Comments History of Present Illness Details Gayla comes for follow-up. She continues to have exertional shortness of breath related to her COPD. She denies any worsening symptoms. Denies any exertional chest pain. Denies any exertional lightheadedness. Her recent echocardiogram shows moderate aortic stenosis with normal LV ejection fraction. [facility] Medical History Hyperkalemia CAD (coronary artery disease) Aortic stenosis Annual physical exam Iron deficiency Hyperglycemia Depression Pain of left thumb Pneumonia Sinusitis, acute History of PFTs History of mammogram Osteoarthritis Hyperlipidemia Asthma Surgical History Hx of cardiac cath Family History Father No problems noted. Mother No problems noted. Social History Housing: House Patient Tobacco Use Status: Never used Tobacco e-Cigarette/Vaping Use: Never Used Current occupational status: retired Cognitive needs: No Hearing needs: No Vision needs: Yes Review of Systems Const Denies chills, Denies fatigue, Denies fever(s), Denies frequent falls, Denies weakness, Denies weight gain and Denies weight loss ENT Denies dizziness Card Denies chest pain, Denies leg edema, Denies lightheadedness, Denies palpitations, Denies dyspnea, Denies dyspnea on exertion, Denies orthopnea and Denies other (loss of consciousness) Resp Denies cough, Denies dyspnea and Denies dyspnea on exertion GI Denies hematochezia and Denies change in stool character Musc Denies abnormal gait, Denies muscle weakness, Denies numbness, Denies radiating pain into limb and Denies tingling Neuro Denies abnormal gait, Denies dizziness, Denies frequent falls, Denies numbness, Denies tingling and Denies weakness Endo Denies fatigue and Denies palpitations Physical Exam Vital Signs: Last Vital Signs Pulse 84 05/02/23 12:49 BP 120/84 05/02/23 12:49 BMI result Body Mass Index 39.8 Const General: cooperative, comfortable, no acute distress, alert and awake Nutritional Appearance: obese Orientation/consciousness: patient oriented x3 Limitations: no limitations Neck Neck: Yes trachea midline, Yes supple and Yes no JVD Resp Effort & Inspection: normal respiratory effort Auscultation: clear to auscultation bilaterally Cardio Jugular venous distension: no JVD Palpation: normal PMI Rate: regular rate Rhythm: regular rhythm Heart sounds: S1 normal heart sound present, S2 normal heart sound present (Soft), no click, no gallops and Murmur heart sound present systolic mid, decrescendo and crescendo Peripheral pulses: Peripheral pulses 2+ throughout GI Inspection: Yes obesity Auscultation: normal bowel sounds Skin General skin exam: no rashes or lesions noted Neuro General: patient oriented x3 and no focal motor deficits Extrem General: Yes no clubbing, cyanosis or edema Assessment & Plan Assessment & Plan (1) Aortic stenosis: Comment: Mild September 2019, mild -mod 10/11, follow-up with Cardiology Code(s): I35.0 - Nonrheumatic aortic (valve) stenosis Plan: Aortic stenosis by recent echocardiogram is moderate in severity. Does not require intervention. She has no new symptoms. We discussed about management of aortic stenosis. Cardinal symptoms associated with aortic stenosis were discussed continue aggressive risk factor modification. Currently on high- intensity statin therapy. Target goal LDL less than 70 mg/dL. Continue low- dose aspirin therapy for [employer] protection. Continue aggressive blood pressure control which is currently well optimized. Encouraged to continue to participate in physical activity as tolerated. Follow up in the clinic in 1 year's time, sooner p.r.n. after an echocardiogram. Thank you for allowing me to partake in the care Orders: Orders CA echo transthoracic complete 1 Year I35.0 - Nonrheumatic aortic (valve) stenosis Coding Level of Care Code Est Pt Level 4 (07485) Diagnoses Aortic stenosis I35.0
== END 2023-05-02 13:12 | disposition home or self-care (01) ==
PROVIDERS: PCP Internal Medicine; Visit Provider Internal Medicine Cardiovascular Disease
DX: I35.0 Nonrheumatic aortic (valve) stenosis (principal)
CPT/HCPCS: 99214

== ENCOUNTER → 2023-05-02 12:34 | Outpatient (BNVA) | payer MEDICARE, SELFPAY | PROVIDERS: PCP Internal Medicine; Visit Provider Internal Medicine Cardiovascular Disease | DX: I35.0 Nonrheumatic aortic (valve) stenosis (principal) | CPT/HCPCS: 99212 ==

== ENCOUNTER 2023-05-31 10:00 | Outpatient (REF) | payer MEDICARE, SELFPAY ==
[2023-05-31 13:38] LABS: MANUAL DIFF FLAG NO
[2023-05-31 14:01] LABS: Basophils Absolute Auto 0.1 X10*3/uL (0.0-0.2); Eosinophils Absolute Auto 0.1 X10*3/uL (0.0-0.4); Eosinophils Percent Auto 2.3 % (0-4); Hematocrit 38.1 % (37.0-47.0); Hemoglobin 12.7 g/dl (12.0-16.0); Imm Gran Abs Auto 0.02 X10*3/uL (0.00-0.03); Imm Gran Pct Auto 0.4 % (0.0-0.4); Lymphocytes Absolute Auto 1.4 X10*3/uL (1.2-4.9); Lymphocytes Percent Auto 27.6 % (20-40); Mean Corpuscular HGB Conc 33.3 g/dl (31.0-35.0); Mean Corpuscular Hemoglobin 31.5 pg (27.0-33.0); Mean Corpuscular Volume 94.5 fL (80.0-98.0); Mean Platelet Volume 10.3 fL (9.4-12.3); Monocytes Absolute Auto 0.4 X10*3/uL (0.1-1.2); Neutrophils Absolute Auto 3.2 x10*3/uL (2.0-8.3); Neutrophils Percent Auto 61.7 % (45-73); Platelet Count 315 X10*3/uL (160-400); Red Blood Count 4.03 X10*6/uL (4.20-5.50); Red Cell Distribution Width 13.4 % (11.0-16.0); White Blood Count 5.1 X10*3/uL (4.8-10.8)
[2023-05-31 14:13] LABS: Estimated Average Glucose 114 mg/dL; Hemoglobin A1c % 5.6 % (<6.0)
[2023-05-31 14:26] LABS: Alanine Aminotransferase 23 U/L (0-31); Alkaline Phosphatase 88 U/L (39-117); Anion Gap 13 (12-20); Aspartate Amino Transferase 21 U/L (5-31); Bilirubin Total 0.6 mg/dL (0.0-1.0); Blood Urea Nitrogen 27 mg/dL (9-16); Carbon Dioxide 27 mmol/L (22-29); Chloride 107 mmol/L (96-108); Cholesterol 162 mg/dL (<200); Estimated Glomerular Filt Rate 57; Glucose Fasting 119 mg/dL (60-99); HDL Cholesterol 56 mg/dL (>40); Iron 100 mcg/dL (30-160); LDL Cholesterol Calculated 86 mg/dL (<100); Percent Iron Saturation 29 % (15-50); Potassium 4.3 mmol/L (3.3-5.1); Sodium 143 mmol/L (135-145); Total Iron Binding Capacity 339 mcg/dL (228-428); Total Protein 7.1 g/dL (6.5-8.0); Triglycerides 102 mg/dL (<150); Unsaturated Iron Binding 239 ug/dL
[2023-05-31 14:51] LABS: Folate 19.1 ng/mL (> or = 4.0)
[2023-05-31 14:56] LABS: Creatinine Urine 126.85 mg/dL; Microalbum/Creatinine Ratio Ur 18.1 ug/mg cr (<30)
[2023-05-31 19:59] LABS: Vitamin B12 609 pg/mL (200-900)
== END 2023-05-31 10:01 | disposition home or self-care (01) ==
LOC: HO.HMGCLDS 10:00
PROVIDERS: PCP Internal Medicine; Visit Provider Internal Medicine
DX: E61.1 Iron deficiency (principal); E78.5 Hyperlipidemia, unspecified
CPT/HCPCS: 36415; 80053; 80061; 82043; 82570; 82607; 82746; 83036; 83540; 85025

== ENCOUNTER 2023-06-05 13:57 | Outpatient (AMB) | payer MEDICARE, SELFPAY ==
[2023-06-05 14:01] VITALS: BP 126/72; PULSE 83; O2SAT 95; BMI 39.3
--- NOTE | 2023-06-05 14:01 | A.OFFPC_ITS ---
Vital Signs 06/05/23 14:01 Height 5 ft 3 in Weight 222 lb BMI 39.3 BP 126/72 Blood Pressure Location Lt brachial Position Sitting Pulse 83 Pulse Source Pulse Oximeter Pulse Oximetry (%) 95 Oxygen Delivery Method Room Air Intake Visit Reasons: 5 Month follow up Intake Note: Pt is here today for 5 month follow up visit. Allergies N.K.D.A. Allergy (Unknown, Uncoded 06/05/23 14:03) unknown Medication List - Last Reconciled 06/05/23 by Hoda Valentine MD albuterol sulfate 90 mcg/actuation 2 puffs PO Q4H PRN aspirin 81 mg PO DAILY atorvastatin 80 mg PO DAILY Breo Ellipta 200-25 mcg/dose (fluticasone furoate-vilanterol) 1 inh inhalation DAILY NS cholecalciferol (vitamin D3) 25 mcg PO DAILY flaxseed oil 1,000 mg PO DAILY incontinence pad, liner, disp (Poise Pads) 1 eight times a day krill oil PO ropinirole 0.5 mg PO DAILY sertraline 100 mg PO DAILY tiotropium bromide 1.25 mcg/actuation 2 puffs PO DAILY vitamin B complex 1 tab PO DAILY Tobacco use date assessed: 06/05/23 Fall risk assessment: No Falls in past year Last assessed Fall Risk: 06/05/23 Dental Screening Dental Screen Date: 06/05/23 Did you have a dental visit in the last 12 months?: Yes Did you have a dental problem in the last 6 months where you did not have access to dental care?: No Was dental information given to patient?: Patient has dentist HPI 5 Month follow up HPI Details Patient presents for the follow-up. She reports persistent wheezing despite using Breo and Spiriva regularly. Patient reports worsening dyspnea on exertion when walking up the stairs. She denies chest pain or palpitations. Patient had a repeated echocardiogram which showed moderate aortic stenosis. Hyperlipidemia is controlled on atorvastatin, patient complains of feeling more anxious and occasionally depressed but denies suicidal ideation. [facility] Medical History Hyperkalemia CAD (coronary artery disease) Aortic stenosis Annual physical exam Iron deficiency Hyperglycemia Depression Pain of left thumb Pneumonia Sinusitis, acute History of PFTs History of mammogram Osteoarthritis Hyperlipidemia Asthma Surgical History Hx of cardiac cath Family History Father No problems noted. Mother No problems noted. Social History Housing: House Patient Tobacco Use Status: Never used Tobacco e-Cigarette/Vaping Use: Never Used service: No Current occupational status: retired Cognitive needs: No Hearing needs: No Vision needs: Yes Questionnaire PHQ-9 Over the last 2 weeks, how often have you been bothered by any of the following problems? 72378 - PHQ-9 Billing: Patient declined-do not bill Source: Developed by Drs. Sukhjinder Lopez, Bel Hanks, Charlie Choi and colleagues, with an educational solo from [employer]. Thrive Questionnaire Date Thrive assessed: 06/05/23 I am a: Patient What is your living situation today?: I choose not to answer this question Within the past 12 months, did the food you bought not last and you didn't have the money to get more?: I choose not to answer this question Within the past 12 months, did you worry whether your food would run out before you got money to buy more?: I choose not to answer this question Do you have trouble paying for medicines?: I choose not to answer this question Do you have trouble getting transportation to medical appointments?: I choose not to answer this question Do you have trouble paying your heating and electricity bill?: I choose not to answer this question Do you have trouble taking care of your child, family member or friend?: I choose not to answer this question Do you have trouble with day-to-day activities such as bathing, preparing meals, shopping, managing finances, etc.?: I choose not to answer this question Are you currently unemployed and looking for a job?: I choose not to answer this question Are you interested in more education?: I choose not to answer this question THRIVE Score: 0 AUDIT C Alcohol Use Questionnaire (AUDIT-C) 1. How often do you have a drink containing alcohol?: 2-3 times a week 2. How many drinks containing alcohol do you have on a typical day when you are drinking?: 1 or 2 3. How often do you have six or more drinks on one occasion?: Never Total Score: 3 JOSE-7 AMB Questionnaire JOSE-7 Date JOSE - 7 assessed: 06/05/23 Source: Developed by Drs. Sukhjinder Lopez, Bel Hanks, Charlie Choi and colleagues, with an educational solo from [employer]. JOSE-7 Assessment Billing JOSE-7 Assessment Tool: pt declined-do not bill Review of Systems Const All systems reviewed & are unremarkable except as noted in HPI and below Reports no additional complaints Eyes Reports no additional complaints ENT Reports no additional complaints Psych Reports no additional complaints Endo Reports no additional complaints Physical exam (Primary Care) Vital Signs: Last Vital Signs Pulse 83 06/05/23 14:01 BP 126/72 06/05/23 14:01 Pulse Ox 95 06/05/23 14:01 Oxygen Delivery Method Room Air 06/05/23 14:01 BMI result Body Mass Index 39.3 Tobacco/Smoking Status: Tobacco use Status Tobacco use date assessed 06/05/23 06/05/23 14:08 Patient Tobacco Use Status Never used Tobacco 06/05/23 14:08 e-Cigarette/Vaping Use Never Used 06/05/23 14:08 Thrive Assessment: Date of Thrive Assessment Date Thrive assessed 06/05/23 06/05/23 14:10 Const General: no acute distress HENAL General nose exam: Normal external nose present Mouth: Normal oral and palatal mucosa present Chest Chest palpation & inspection: normal inspection of the chest Resp Effort & Inspection: normal respiratory effort Auscultation: wheezes Cardio Rhythm: regular rhythm Heart sounds: S1 normal heart sound present and S2 normal heart sound present GI Inspection: Yes normal to inspection Palpation (GI): Soft to palpation Percussion: Yes normal to percussion Auscultation: normal bowel sounds Assessment and Plan Assessment & Plan (1) Equivalent angina: Code(s): I20.89 - Other forms of angina pectoris Plan: For worsening dyspnea on exertion a nuclear stress test will be obtained to rule out ischemia (2) COPD (chronic obstructive pulmonary disease): Code(s): J44.9 - Chronic obstructive pulmonary disease, unspecified Plan: Continue Breo and Spiriva obtain pulmonary function test (3) Asthma: Code(s): J45.909 - Unspecified asthma, uncomplicated Plan: Add Singulair (4) Depression: Code(s): F32.9 - Major depressive disorder, single episode, unspecified Plan: Increase sertraline to 100 mg a day. (5) Hyperlipidemia: Code(s): E78.5 - Hyperlipidemia, unspecified Plan: Continue statin Orders: Orders CA stress test Today I20.89 - Other forms of angina pectoris NM cardiolite stress test Today I20.89 - Other forms of angina pectoris PFT pulmonary function test Today Medications: New montelukast 10 mg PO DAILY 90 tabs 3RF sertraline 100 mg PO DAILY 90 tabs 2RF Refilled incontinence pad, liner, disp (Poise Pads) 1 eight times a day 312 ea 3RF Discontinued sertraline Discontinued Reason: Doctor's Order 50 mg PO DAILY 90 tabs 3RF Coding Level of Care Code Est Pt Level 4 (60902) Diagnoses Equivalent angina I20.89 COPD (chronic obstructive pulmonary disease) J44.9 Asthma J45.909 Depression F32.9 Hyperlipidemia E78.5
== END 2023-06-05 14:27 | disposition home or self-care (01) ==
PROVIDERS: PCP Internal Medicine; Visit Provider Internal Medicine
DX: I20.89 Other forms of angina pectoris (principal); J44.9 Chronic obstructive pulmonary disease, unspecified; J45.909 Unspecified asthma, uncomplicated; F32.9 Major depressive disorder, single episode, unspecified; E78.5 Hyperlipidemia, unspecified
CPT/HCPCS: 99214

== ENCOUNTER → 2023-06-30 08:15 | Outpatient (REF) | payer MEDICARE, SELFPAY ==
--- NOTE | ~2023-06-30 | NM_ITS ---
Lexiscan Myocardial perfusion study Indication: Shortness of breath, assess for coronary disease and ischemia Technique: The patient was brought in for a Lexiscan perfusion study on 06/30/2023 and was injected 0.4 mg of Lexiscan intravenously. Within a minute of this injection 35 mCi of sestamibi was given intravenously. Images were obtained using the SPECT gamma camera interlaced with the gating device. Images were obtained in supine position. Resting perfusion study was performed on 07/04/2023. Patient was administered 35 mCi of sestamibi intravenously at rest. Images were then obtained in supine position. Images were processed with the software and compared side to side in short axis, horizontal long axis and vertical long axis views. Total DLP 206mGy-cm. Findings: Raw acquisition reviewed. Arms by the patient's side. The stress perfusion study showed no significant perfusion abnormality. Both uncorrected as well as CT attenuation corrected images were reviewed. The gated study shows normal LV systolic function with calculated LVEF of 49%, but visually appears normal. LV cavity is normal in size. The gated study shows normal wall thickening and contraction of segments. Resting study shows diminished tracer uptake towards the apex and part of inferolateral wall. Improvement with CT attenuation correction suggestive of artifactual etiology. Gating at rest reveals normal wall motion with ejection fraction at 55%. The findings are consistent with no clear reversible or fixed perfusion of normality. NM/NM cardiolite stress test Impression: 1. Myocardial perfusion imaging study shows probably normal myocardial perfusion. 2. Gated LVEF is 49% during stress but visually appears normal; 55% during rest. 3. Transient ischemic dilatation not present. EKG component of the test reported separately.
--- NOTE | 2023-06-30 08:17 | CA_ITS ---
Acquisition Time: 2023-06-30 08:23:35 Total Exercise Time: 00:05:10 Test Indications: 120.89 Medications: SEE H Protocol: KARELY Max HR: 137 BPM 97% of Pred: 141 BPM Max BP: 190/068 mmHG Max Work Load: 4.6 METS Exercise stress test exercise 5 min of Karely protocol last 2 minutes fdecreased speed and incline achieving 95% MPHR, with moderate to severe SOB, with 4-5/10 chest pressure, with isolated PVCs, with max BP 190/68, without EKG changes. Breathing and chest pressure returned to normal with inhaler and rest. Nuclear images pending. Test reviewed with Dr. Robbins. Referred By: Hoda Valentine Overread By: Samia Bertrand
== END ==
LOC: HO.CARD 08:15
PROVIDERS: PCP Internal Medicine; Visit Provider Internal Medicine
DX: I20.89 Other forms of angina pectoris (principal)
CPT/HCPCS: 78452; 93017; A9500; J0280; J2785

== ENCOUNTER → 2023-06-30 08:17 | Outpatient (BNV) | payer MEDICARE, SELFPAY | PROVIDERS: PCP Internal Medicine; Visit Provider Nurse Practitioner | DX: R06.02 Shortness of breath (principal) | CPT/HCPCS: 78452; 93016; 93018 ==

== ENCOUNTER 2023-08-14 15:01 | Outpatient (AMB) | payer MEDICARE, SELFPAY ==
--- NOTE | 2023-08-14 15:04 | AM.OFFWIN_ITS ---
Intake Vital Signs 3 08/14/23 15:05 Height 5 ft 3 in Weight 225 lb BMI 39.9 BP 132/90 H Blood Pressure Location Rt brachial Position Sitting Pulse 74 Pulse Source Pulse Oximeter Temp 97.9 F Temp Source Oral Pulse Oximetry (%) 96 Oxygen Delivery Method Room Air Intake Visit Reasons: EP Skin rash/itch Intake Note: pt is here for rash on arms states she had it for 2 weeks. Patient Tobacco Use Status: Never used Tobacco Allergies N.K.D.A. Allergy (Unknown, Uncoded 06/05/23 14:03) unknown HPI HPI Comments 2 History of Present Illness0 Details 77 y/o female patient who presents to [facility] in clinic with c/o rash on both forearms. REports the rash is very itchy, sharp and red. Reports noticing it ~ a week ago. She has been using oTC Hydrogen Peroxide with no releif. [facility] Medical History Hyperkalemia CAD (coronary artery disease) Aortic stenosis Annual physical exam Iron deficiency Hyperglycemia Depression Pain of left thumb Pneumonia Sinusitis, acute History of PFTs History of mammogram Osteoarthritis Hyperlipidemia Asthma Surgical History Hx of cardiac cath Family History Father No problems noted. Mother No problems noted. Social History Housing: House Patient Tobacco Use Status: Never used Tobacco e-Cigarette/Vaping Use: Never Used service: No Current occupational status: retired Cognitive needs: No Hearing needs: No Vision needs: Yes Review of Systems Const All systems reviewed & are unremarkable except as noted in HPI and below Physical Exam Vital Signs: Last Vital Signs Temp 97.9 F 08/14/23 15:05 Pulse 74 08/14/23 15:05 BP 132/90 H 08/14/23 15:05 Pulse Ox 96 08/14/23 15:05 Oxygen Delivery Method Room Air 08/14/23 15:05 BMI result Body Mass Index 39.9 Const General: comfortable and no acute distress Nutritional Appearance: obese Orientation/consciousness: patient oriented x3 Skin Other: Dry, Red, cracked, scaly, or areas of thickened skin bilateral forearm. Rashes: rashes noted Full body images: 2 1. Dry, Red, cracked, scaly, or areas of thickened skin bilateral forearm. 2. Dry, Red, cracked, scaly, or areas of thickened skin bilateral forearm. Neuro General: patient oriented x3, gait normal and moves all extremities Psych Speech and movement: Normal speech and movement present Assessment & Plan Assessment & Plan (1) Rash: Code(s): R21 - Rash and other nonspecific skin eruption Plan: Eczema vs Dermatitis Topical and Oral Steroids Moisturizing Lotions/creams RTC if not better. Medications: New 2 prednisone 50 mg PO DAILY 5 tabs 0RF 5 days R21 - Rash and other nonspecific skin eruption triamcinolone acetonide 0.1% 1 appl topical BID 30 grams 0RF 14 days R21 - Rash and other nonspecific skin eruption Coding Level of Care Code Est Pt Level 3 (44775) Diagnoses Rash R21 Time Spent (min) 15
[2023-08-14 15:05] VITALS: BP 132/90; PULSE 74; TEMP 36.6; O2SAT 96; BMI 39.9
== END 2023-08-14 15:34 | disposition home or self-care (01) ==
PROVIDERS: PCP Internal Medicine; Visit Provider Nurse Practitioner Family
DX: R21 Rash and other nonspecific skin eruption (principal)
CPT/HCPCS: 99213

== ENCOUNTER 2023-08-31 11:12 | Outpatient (AMB) | payer MEDICARE, SELFPAY ==
[2023-08-31 11:18] VITALS: BP 120/70; PULSE 81; O2SAT 94; BMI 39.3
--- NOTE | 2023-08-31 11:18 | A.OFFPC_ITS ---
Vital Signs 08/31/23 11:18 Height 5 ft 3 in Weight 222 lb BMI 39.3 BP 120/70 Blood Pressure Location Lt brachial Position Sitting Pulse 81 Pulse Source Pulse Oximeter Pulse Oximetry (%) 94 Oxygen Delivery Method Room Air Intake Visit Reasons: 3M F/U labs Intake Note: Pt is here today for 3 months follow up visit on labs. Allergies N.K.D.A. Allergy (Unknown, Uncoded 08/31/23 11:42) unknown Medication List - Last Reconciled 08/31/23 by Hoda Valentine MD albuterol sulfate 90 mcg/actuation 2 puffs PO Q4H PRN aspirin 81 mg PO DAILY atorvastatin 80 mg PO DAILY Breo Ellipta 200-25 mcg/dose (fluticasone furoate-vilanterol) 1 inh inhalation DAILY NS cholecalciferol (vitamin D3) 25 mcg PO DAILY flaxseed oil 1,000 mg PO DAILY incontinence pad, liner, disp (Poise Pads) 1 eight times a day krill oil PO montelukast 10 mg PO DAILY ropinirole 0.5 mg PO DAILY sertraline 100 mg PO DAILY tiotropium bromide 1.25 mcg/actuation 2 puffs PO DAILY triamcinolone acetonide 0.1% 1 appl topical BID 14 days vitamin B complex 1 tab PO DAILY Tobacco use date assessed: 08/31/23 Dental Screening Dental Screen Date: 06/05/23 HPI 3M F/U labs HPI Details Pt presents for f/u of COPD, HYPERLIPIDEMIA, stable on current medications. Patient complains of insomnia has tried multiple indx-aef-zbghqgy supplements without relief. Patient reports having difficulty falling asleep but sleeping longer in the morning. She denies depression or anxiety. [facility] Medical History (Updated 08/31/23 @ 15:27 by Hoda Valentine MD) Hyperkalemia CAD (coronary artery disease) Aortic stenosis Annual physical exam Iron deficiency Hyperglycemia Depression Pain of left thumb Pneumonia Sinusitis, acute History of PFTs History of mammogram Osteoarthritis Hyperlipidemia Asthma Surgical History Hx of cardiac cath Family History Father No problems noted. Mother No problems noted. Social History Housing: House Patient Tobacco Use Status: Never used Tobacco e-Cigarette/Vaping Use: Never Used service: No Current occupational status: retired Cognitive needs: No Hearing needs: No Vision needs: Yes Questionnaire Thrive Questionnaire Date Thrive assessed: 06/05/23 JOSE-7 AMB Questionnaire JOSE-7 Date JOSE - 7 assessed: 06/05/23 Source: Developed by Drs. Sukhjinder Lopez, Bel Hanks, Charlie Choi and colleagues, with an educational solo from [employer]. Review of Systems Const All systems reviewed & are unremarkable except as noted in HPI and below Eyes Reports no additional complaints ENT Reports no additional complaints Card Reports no additional complaints Resp Reports no additional complaints GI Reports no additional complaints Reports no additional complaints Physical exam (Primary Care) Vital Signs: Last Vital Signs Pulse 81 08/31/23 11:18 BP 120/70 08/31/23 11:18 Pulse Ox 94 08/31/23 11:18 Oxygen Delivery Method Room Air 08/31/23 11:18 BMI result Body Mass Index 39.3 Tobacco/Smoking Status: Tobacco use Status Tobacco use date assessed 08/31/23 08/31/23 11:44 Patient Tobacco Use Status Never used Tobacco 08/31/23 11:18 e-Cigarette/Vaping Use Never Used 08/31/23 11:18 Thrive Assessment: Date of Thrive Assessment Date Thrive assessed 06/05/23 08/31/23 11:18 Const General: no acute distress HENMT Head: Yes normal to inspection Face and sinus: Yes normal facial exam Eyes General: appearance normal, both eyes and all related structures Neck Neck: Yes supple Resp Effort & Inspection: normal respiratory effort Auscultation: diminished lung sounds Cardio Rhythm: regular rhythm Heart sounds: S1 normal heart sound present and S2 normal heart sound present GI Inspection: Yes normal to inspection Palpation (GI): Soft to palpation Percussion: Yes normal to percussion Auscultation: normal bowel sounds Assessment and Plan Assessment & Plan (1) COPD (chronic obstructive pulmonary disease): Code(s): J44.9 - Chronic obstructive pulmonary disease, unspecified Plan: Continue Breo and Spiriva. Patient will have PFTs (2) Aortic stenosis: Comment: Mild September 2019, mild -mod 10/11,mod 05/2023 follow-up with Cardiology Code(s): I35.0 - Nonrheumatic aortic (valve) stenosis Plan: Slightly progressing to moderate , check echocardiogram in 1 year (3) Hyperlipidemia: Code(s): E78.5 - Hyperlipidemia, unspecified Plan: Continue statin, follow-up in 3 months with a fasting labs before (4) Anxiety and depression: Code(s): F41.9 - Anxiety disorder, unspecified; F32.A - Depression, unspecified Plan: Continue sertraline, stress management mindfulness sleep hygiene discussed with the patient. She declined counseling Orders: Orders Comprehensive [place]. Panel Fast 3 Months E78.5 - Hyperlipidemia, unspecified, I35.0 - Nonrheumatic aortic (valve) stenosis, J44.9 - Chronic obstructive pulmonary disease, unspecified B Type Natriuretic Peptide 3 Months E78.5 - Hyperlipidemia, unspecified, I35.0 - Nonrheumatic aortic (valve) stenosis, J44.9 - Chronic obstructive pulmonary disease, unspecified Complete Blood Count Auto Diff 3 Months E78.5 - Hyperlipidemia, unspecified, I35.0 - Nonrheumatic aortic (valve) stenosis, J44.9 - Chronic obstructive pulmonary disease, unspecified Hemoglobin A1c 3 Months E78.5 - Hyperlipidemia, unspecified, I35.0 - Nonr heumatic aortic (valve) stenosis, J44.9 - Chronic obstructive pulmonary disease, unspecified Lipid Panel 3 Months E78.5 - Hyperlipidemia, unspecified, I35.0 - Nonrheumatic aortic (valve) stenosis, J44.9 - Chronic obstructive pulmonary disease, unspecified Medications: Refilled prednisone 50 mg PO DAILY 5 tabs 0RF 5 days R21 - Rash and other nonspecific skin eruption Coding Level of Care Code Est Pt Level 4 (45083) Diagnoses COPD (chronic obstructive pulmonary disease) J44.9 Aortic stenosis I35.0 Hyperlipidemia E78.5 Anxiety and depression F41.9; F32.A
== END 2023-08-31 15:28 | disposition home or self-care (01) ==
PROVIDERS: PCP Internal Medicine; Visit Provider Internal Medicine
DX: J44.9 Chronic obstructive pulmonary disease, unspecified (principal); I35.0 Nonrheumatic aortic (valve) stenosis; E78.5 Hyperlipidemia, unspecified; F41.9 Anxiety disorder, unspecified; F32.A Depression, unspecified
CPT/HCPCS: 99214

== ENCOUNTER 2023-12-06 11:51 | Outpatient (AMB) | payer OTHER, SELFPAY ==
--- NOTE | 2023-12-06 11:53 | A.OFFPC_ITS ---
Vital Signs 12/06/23 11:54 Height 5 ft 3 in Weight 220 lb BMI 39.0 BP 120/74 Blood Pressure Location Rt brachial Position Sitting Pulse 74 Pulse Source Pulse Oximeter Pulse Oximetry (%) 95 Oxygen Delivery Method Room Air Intake Visit Reasons: PE - see comments Intake Note: Pt is here today for PE. Pt states that she has been having sciatica pain she was on muscle relaxer and prednisone and they helped but the pain in back again. Allergies N.K.D.A. Allergy (Unknown, Uncoded 12/06/23 11:55) unknown Medication List - Last Reconciled 12/06/23 by Hoda Valentine MD albuterol sulfate 90 mcg/actuation 2 puffs PO Q4H PRN aspirin 81 mg PO DAILY atorvastatin 80 mg PO DAILY betamethasone dipropionate 0.05% appl topical Breo Ellipta 200-25 mcg/dose (fluticasone furoate-vilanterol) 1 inh inhalation DAILY NS cholecalciferol (vitamin D3) 25 mcg PO DAILY diphenhydramine HCl (Benadryl) 25 mg PO BID flaxseed oil 1,000 mg PO DAILY incontinence pad, liner, disp (Poise Pads) 1 eight times a day krill oil PO montelukast 10 mg PO DAILY ropinirole 0.5 mg PO DAILY sertraline 100 mg PO DAILY tiotropium bromide 1.25 mcg/actuation 2 puffs PO DAILY triamcinolone acetonide 0.1% 1 appl topical BID 14 days vitamin B complex 1 tab PO DAILY Tobacco use date assessed: 12/06/23 Fall risk assessment: No Falls in past year Last assessed Fall Risk: 12/06/23 Dental Screening Dental Screen Date: 06/05/23 HPI PE - see comments HPI Details Pt presents for PE. Patient complains of worsening chronic lower back pain radiating to right buttock for the last few weeks after carrying heavy water cans. The pain is worse when patient is sitting or walking longer distance. She denies weakness or numbness in extremities change in the bowel or bladder function [facility] Medical History Hyperkalemia CAD (coronary artery disease) Aortic stenosis Annual physical exam Iron deficiency Hyperglycemia Depression Pain of left thumb Pneumonia Sinusitis, acute History of PFTs History of mammogram Osteoarthritis Hyperlipidemia Asthma Surgical History Hx of cardiac cath Family History Father No problems noted. Mother No problems noted. Social History Housing: House Patient Tobacco Use Status: Never used Tobacco e-Cigarette/Vaping Use: Never Used service: No Current occupational status: retired Cognitive needs: No Hearing needs: No Vision needs: Yes Questionnaire PHQ-9 Over the last 2 weeks, how often have you been bothered by any of the following problems? 1. Little interest or pleasure in doing things: not at all 2. Feeling down, depressed, or hopeless: several days 3. Trouble falling or staying asleep, or sleeping too much: nearly every day 4. Feeling tired or having little energy: several days 5. Poor appetite or overeating: not at all 6. Feeling bad about yourself - or that you are a failure or have let yourself or your family down: not at all 7. Trouble concentrating on things, such as reading the newspaper or watching television: not at all 8. Moving or speaking so slowly that other people could have noticed. Or the opp osite - being so fidgety or restless that you have been moving around a lot more than usual: not at all 9. Thoughts that you would be better off or of hurting yourself in some way: not at all Total score: 5 Depression Screening Interpretation: Negative Depression Screening Done: Yes 08929 - PHQ-9 Billing: Yes Source: Developed by Drs. Sukhjinder Lopez, Bel Hanks, Charlie Choi and colleagues, with an educational solo from [employer]. Thrive Questionnaire Date Thrive assessed: 12/06/23 I am a: Patient What is your living situation today?: I have a steady place to live Within the past 12 months, did the food you bought not last and you didn't have the money to get more?: Never true Within the past 12 months, did you worry whether your food would run out before you got money to buy more?: Never true Do you have trouble paying for medicines?: No Do you have trouble getting transportation to medical appointments?: No Do you have trouble paying your heating and electricity bill?: No Do you have trouble taking care of your child, family member or friend?: No Do you have trouble with day-to-day activities such as bathing, preparing meals, shopping, managing finances, etc.?: No Are you currently unemployed and looking for a job?: No Are you interested in more education?: No Please select the resources that you would like help with: None Currently or been in a relationship where the following occur: No concerns reported THRIVE Score: 0 AUDIT C Alcohol Use Questionnaire (AUDIT-C) 1. How often do you have a drink containing alcohol?: 2-3 times a week 2. How many drinks containing alcohol do you have on a typical day when you are drinking?: 7 to 9 3. How often do you have six or more drinks on one occasion?: Never Total Score: 6 JOSE-7 AMB Questionnaire JOSE-7 Date JOSE - 7 assessed: 12/06/23 Feeling nervous, anxious, or on edge: 0 = Not at all Not being able to stop or control worryin = Not at all Worrying too much about different things: 1 = Several days Trouble relaxin = Several days Being so restless that it is hard to sit still: 1 = Several days Becoming easily annoyed or irritable: 0 = Not at all Feeling afraid as if something awful might happen: 0 = Not at all Total JOSE-7 score (0-4 normal; 5-9 mild; 10-14 moderate; 15-21 severe): 3 Source: Developed by Drs. Sukhjinder Lopez, Bel Hanks, Charlie Choi and colleagues, with an educational solo from [employer]. JOSE-7 Assessment Billing JOSE-7 Assessment Tool: JOSE-7 Assessment 71043 Review of Systems Const All systems reviewed & are unremarkable except as noted in HPI and below Reports no additional complaints Eyes Reports no additional complaints ENT Reports no additional complaints Card Reports no additional complaints Resp Reports no additional complaints GI Reports no additional complaints Reports no additional complaints Musc Reports no additional complaints Physical exam (Primary Care) Vital Signs: Last Vital Signs Pulse 74 12/06/23 11:54 BP 120/74 12/06/23 11:54 Pulse Ox 95 12/06/23 11:54 Oxygen Delivery Method Room Air 12/06/23 11:54 BMI result Body Mass Index 39.0 Tobacco/Smoking Status: Tobacco use Status Tobacco use date assessed 12/06/23 12/06/23 12:00 Patient Tobacco Use Status Never used Tobacco 12/06/23 12:00 e-Cigarette/Vaping Use Never Used 12/06/23 12:00 PHQ-9: PHQ-9 Score PHQ-9: Total score 5 12/06/23 12:00 Depression Screening Interpretation: Negative Thrive Assessment: Date of Thrive Assessment Date Thrive assessed 12/06/23 12/06/23 12:00 Currently or been in a relationship where the following occur: No concerns reported Const General: no acute distress HENMT Head: Yes normal to inspection Ears: hearing grossly normal bilaterally Face and sinus: Yes normal facial exam Mouth: Normal oral and palatal mucosa present Throat: Yes posterior oropharynx normal Eyes General: appearance normal, both eyes and all related structures Neck Neck: Yes no lymphadenopathy and Yes supple Resp Effort & Inspection: normal respiratory effort Auscultation: clear to auscultation bilaterally Cardio Rhythm: regular rhythm Heart sounds: S1 normal heart sound present and S2 normal heart sound present GI Inspection: Yes normal to inspection Palpation (GI): Soft to palpation Percussion: Yes normal to percussion Auscultation: normal bowel sounds Back/Spine/Pelvis Other: Paraspinal tenderness in lower lumbar region right more than left, straight leg rising 40 degrees on the right 90 degrees on the left, deep tendon reflexes 1+ bilaterally Coding Level of Care Code Est Pt Prev Care >65y(07795) Diagnoses Sciatica M54.30 COPD (chronic obstructive pulmonary disease) J44.9 Obesity E66.9 Annual physical exam Z00.00 Aortic stenosis I35.0 Hyperlipidemia E78.5 Additional Codes JOSE-7 Assessment Billing - JOSE-7 Assessment Tool: JOSE-7 Assessment 38283 ([id number]) Assessment & Plan Assessment & Plan (1) Sciatica: Code(s): M54.30 - Sciatica, unspecified side Category: Medical Plan: Meloxicam and baclofen are prescribed, patient will be referred to physical therapy (2) COPD (chronic obstructive pulmonary disease): Code(s): J44.9 - Chronic obstructive pulmonary disease, unspecified Category: Medical Plan: Continue Breo and Spiriva (3) Obesity: Code(s): E66.9 - Obesity, unspecified Category: Medical Plan: Decrease caloric intake increase physical activity and weight loss discussed with the patient (4) Annual physical exam: Code(s): Z00.00 - Encounter for general adult medical examination without abnormal findings Category: Medical Plan: Well-balanced diet regular physical activity weight loss discussed with the patient. (5) Aortic stenosis: Comment: Mild September 2019, mild -mod 10/11,mod 05/2023 follow-up with Cardiology Code(s): I35.0 - Nonrheumatic aortic (valve) stenosis Category: Medical Plan: Follow-up with cardiology for a repeat echocardiogram next year (6) Hyperlipidemia: Code(s): E78.5 - Hyperlipidemia, unspecified Category: Medical Plan: Continue statin Orders: Orders PT Evaluation and Treatment Today M54.30 - Sciatica, unspecified side Comprehensive Irwin. Panel Fast Today E78.5 - Hyperlipidemia, unspecified, I35.0 - Nonrheumatic aortic (valve) stenosis, J44.9 - Chronic obstructive pulmonary disease, unspecified, M54.5 - Low back pain, Z00.00 - Encounter for general adult medical examination without abnormal findings Lipid Panel Today E78.5 - Hyperlipidemia, unspecified, I35.0 - Nonrheumatic aortic (valve) stenosis, J44.9 - Chronic obstructive pulmonary disease, unspecified, M54.5 - Low back pain, Z00.00 - Encounter for general adult medical examination without abnormal findings Complete Blood Count Auto Diff Today E78.5 - Hyperlipidemia, unspecified, I35.0 - Nonrheumatic aortic (valve) stenosis, J44.9 - Chronic obstructive pulmonary disease, unspecified, M54.5 - Low back pain, Z00.00 - Encounter for general adult medical examination without abnormal findings Hemoglobin A1c Today E78.5 - Hyperlipidemia, unspecified, I35.0 - Nonrheumatic aortic (valve) stenosis, J44.9 - Chronic obstructive pulmonary disease, unspecified, M54.5 - Low back pain, Z00.00 - Encounter for general adult medical examination without abnormal findings TSH reflex Free T4 Today E78.5 - Hyperlipidemia, unspecified, I35.0 - Nonrheumatic aortic (valve) stenosis, J44.9 - Chronic obstructive pulmonary disease, unspecified, M54.5 - Low back pain, Z00.00 - Encounter for general adult medical examination without abnormal findings Medications: New meloxicam 15 mg PO DAILY 20 tabs 0RF baclofen 10 mg PO BEDTIME 30 tabs 0RF Refilled incontinence pad, liner, disp (Poise Pads) 1 eight times a day 312 ea 3RF
[2023-12-06 11:54] VITALS: BP 120/74; PULSE 74; O2SAT 95; BMI 39.0
== END 2023-12-06 12:28 | disposition home or self-care (01) ==
PROVIDERS: PCP Internal Medicine; Visit Provider Internal Medicine
DX: Z00.00 Encounter for general adult medical examination without abnormal findings (principal); J44.9 Chronic obstructive pulmonary disease, unspecified; E66.812 Obesity, class 2; Z68.39 Body mass index [BMI] 39.0-39.9, adult; M54.30 Sciatica, unspecified side; I35.0 Nonrheumatic aortic (valve) stenosis; E78.5 Hyperlipidemia, unspecified

== ENCOUNTER → 2023-12-06 11:51 | Outpatient (BNVA) | payer MEDICARE, SELFPAY | PROVIDERS: PCP Internal Medicine; Visit Provider Internal Medicine | DX: Z00.01 Encounter for general adult medical examination with abnormal findings (principal); M54.30 Sciatica, unspecified side; J44.9 Chronic obstructive pulmonary disease, unspecified; E66.9 Obesity, unspecified; I35.0 Nonrheumatic aortic (valve) stenosis; E78.5 Hyperlipidemia, unspecified | CPT/HCPCS: 96127; 99397 ==

== ENCOUNTER 2024-04-08 14:56 | Outpatient (AMB) | payer MEDICARE, SELFPAY ==
--- OUTSIDE RECORDS SUMMARY | 2024-04-08 14:58 | XMS_ITS | Clinical Summary ---
Author Organization [facility] Address [id number] [place] [id number] Care Team Providers Care Tennis Net Maker Name Role Phone Hoda Valentine MD Primary Care Provider [phone] Social History Tobacco Use Types Packs/Day Years Used Date Smoking Tobacco: Never Assessed Comments Unknown Sex and Gender Information Value Date Recorded Sex Assigned at Not on file Legal Sex Female 1:13 PM EST Gender Identity Not on file Sexual Orientation Not on file Plan of Treatment Health Maintenance Due Date Last Done Comments DTaP,Tdap,and Td Vaccines (1 - Tdap) 12/10/1962 Pneumococcal Vaccine: 50+ Ye ars (1 of 1 - PCV) 12/10/1993 Zoster Vaccines (1 of 2) 12/10/1993 RSV Immunization Patients 60 + Years Old (1 - 1-dose 75+ series) 12/10/2018 Depression Screening 01/18/2022 Falls Risk Assessment 01/18/2022 Osteoporosis Screening (Bone Density Screening) 01/18/2022 Social Influencers of Health Screening 01/18/2022 COVID-19 Vaccine ( - 2023-2 5 season) 2023 Influenza Vaccine (#1) 2023 HIB Vaccines Aged Out No longer eligi ble based on patient's age to complete this topic HPV Vaccines Aged Out No longer eligi ble based on patient's age to complete this topic Hepatitis A Vaccines Aged Out No long er eligible based on patient's age to complete this topic Hepatitis B Vaccines Aged Out No long er eligible based on patient's age to complete this topic IPV Vaccines Aged Out No longer eligi ble based on patient's age to complete this topic MMR Vaccines Aged Out No longer eligi ble based on patient's age to complete this topic Meningococcal ACWY Vaccine Aged Out N o longer eligible based on patient's age to complete this topic Meningococcal B Vacine Aged Out No lo nger eligible based on patient's age to complete this topic RSV Immunization Patients Un nika 20 months Aged Out No longer eligible b ased on patient's age to complete this topic Varicella Vaccines Aged Out No longer eligible based on patient's age to complete this topic Advance Directives Documents on File Type Date Recorded 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 Health Care Decision (hx) 04/25/2014 AD VILA DIRECTIVE Health Care Decision (hx) 04/25/2014 AD VILA DIRECTIVE Health Care Decision (hx) 04/25/2014 AD VILA DIRECTIVE Health Care Decision (hx) 04/25/2014 AD VILA DIRECTIVE Health Care Decision (hx) 04/25/2014 AD VILA DIRECTIVE Health Care Decision (hx) 04/25/2014 AD VILA DIRECTIVE Health Care Decision (hx) 04/25/2014 AD VILA DIRECTIVE Health Care Decision (hx) 04/25/2014 AD VILA DIRECTIVE Health Care Decision (hx) 04/25/2014 AD VILA DIRECTIVE Health Care Decision (hx) 04/25/2014 AD VILA DIRECTIVE Health Care Decision (hx) 04/25/2014 AD VILA DIRECTIVE Health Care Decision (hx) 04/25/2014 AD VILA DIRECTIVE Health Care Decision (hx) 04/25/2014 AD VILA DIRECTIVE Health Care Decision (hx) 04/25/2014 AD VILA DIRECTIVE Health Care Decision (hx) 04/25/2014 AD VILA DIRECTIVE Health Care Decision (hx) 04/25/2014 AD VILA DIRECTIVE Health Care Decision (hx) 04/25/2014 AD VILA DIRECTIVE Health Care Decision (hx) 04/25/2014 AD VILA DIRECTIVE Health Care Decision (hx) 04/25/2014 AD VILA DIRECTIVE Health Care Decision (hx) 04/25/2014 AD VILA DIRECTIVE Health Care Decision (hx) 04/25/2014 AD VILA DIRECTIVE Care Teams Tennis Net Maker Relationship Specialty Start Date End Date Hoda aVlentine MD PCP - General Occupational Therapy Technician 11/13/19
--- OUTSIDE RECORDS SUMMARY | 2024-04-08 14:59 | XMS_ITS | Data Portability ---
Author Organization [place] [facility] Address [address] [facility],[address] [address] Care Team Providers Care Lead Performance Support Analyst Name Role Phone EL ROTHMAN Primary Care Provider Assessment Encounter Date Assessment Date Assessment LastModified by Organization Details LastModified Time 03/13/2019 03/13/2019 Gayla Jimenez is a 72 year old woman with complaints of bilateral knee pain, left is greater than right . On exam, she has mild swelling in her left knee with tenderness on palpation of the medial joint line. X-ray Knee shows bilateral severe osteoarthritis. She is here for a left knee steroid injection under ultrasound guidance. The risks and benefits of the procedure were discussed in detail. She wishes to proceed She will follow in three months as needed. [email or web address] Not available 03/13/2019 14:01:48 03/27/2019 03/27/2019 Gayla Jimenez is a 72 year old woman with complaints of bilateral knee pain, left is greater than right . On exam, she has mild swelling in her right knee with tenderness on palpation of the medial joint line. X-ray Knee shows bilateral severe osteoarthritis. She is here for a right knee steroid injection under ultrasound guidance. She understands and wishes to proceed. She will follow up in 12 weeks for a repeat injection as needed. I have given her a prescription for cyclobenzaprine for muscle spasms . She had good benefit with minimal side effects in the past [email or web address] Not available 03/27/2019 13:52:13 07/25/2019 07/25/2019 Gayla Jimenez is a 73 year old woman with complaints of bilateral knee pain, left is greater than right . On exam, she has mild swelling in her left knee with tenderness on palpation of the medial joint line. X-ray Knee shows bilateral severe osteoarthritis. She is here for a left knee steroid injection under ultrasound guidance. The risks and benefits of the procedure were discussed in detail. She wishes to proceed She will follow in three months as needed. [email or web address] Not available 07/25/2019 11:19:19 08/15/2019 08/15/2019 Gayla Jimenez is a 73 year old woman with complaints of bilateral knee pain, left is greater than right . On exam, she has mild swelling in her right knee with tenderness on palpation of the medial joint line. X-ray Knee shows bilateral severe osteoarthritis. She is here for a right knee steroid injection under ultrasound guidance. She understands and wishes to proceed. She will follow up in 12 weeks for a repeat injection as needed. I have given her samples of lidocaine patches - she will call for a prescription if the patches help. [email or web address] Not available 08/15/2019 13:41:29 04/13/2021 04/13/2021 Gayla Jimenez is a 75 year old woman with complaints of bilateral knee pain. She is S/P Bilateral knee replacements. She is better. She is not taking the gabapentin any longer. She is using the cyclobenzaprine as needed. She is doing well overall and will follow up as needed. [email or web address] Not available 04/14/2021 08:57:36 Plan of Treatment Reminders Order Date Submit Date Provider Last Modified By Organization Details Last Modified Time Details Appointments None recorded . Lab None recorded . Referral None recorded . Procedures None recorded . Surgeries None recorded . Imaging None recorded . Medication Orders cycloben zaprine 10 mg tablet 2019 020 rikki [id number], [address] [place], [place], [id number], 0 11:06:05 Patient TargetsNo targets recorded. Patient Instructions Encounter Date Encounter Id Patient Instructions Last Modified By Organization Details Last Modified Time 03/13/2019 [id number] She was advised against bed rest lasting longer than four days and to continue activities as tolerated. [email or web address] Not available 03/13/2019 14:01:49 03/27/2019 [id number] She was advised against bed rest lasting longer than four days and to continue activities as tolerated. [email or web address] Not available 03/27/2019 13:52:16 07/25/2019 [id number] She was advised against bed rest lasting longer than four days and to continue activities as tolerated. [email or web address] Not available 07/25/2019 11:18:09 08/15/2019 [id number] She was advised against bed rest lasting longer than four days and to continue activities as tolerated. [email or web address] Not available 08/15/2019 13:29:57 04/13/2021 [id number] Telehealth visit: The patient was located at home for this telephone electronic visit and gave consent for this visit to be conducted via telehealth. 15 minutes was spent on this call and greater than 50% of the visit was spent on counseling and coordination of care. [email or web address] Not available 04/14/2021 08:57:50 Reason for Referral None Reported. Results Created Date Observation Date Name Description Value Unit Range Abnormal Flag Note LastModifiedBy Organization Detail LastModifiedTime 07/18/19 20 07/18/2019 XR, knee No observ ation record ed. [facility] [address] [place] [address], [address], 07/25/2019 10:57:32 Result Notes None recorded. Problems Name Problem SNOMED Code Status Onset Date Resolution Date Notes Provider Name and Address Organization Details Recorded Time Spinal stenosis of lumbar region 32330317 Active 2016 Ramon khan MD [address] , [address], [place], [address], [place] [facility] 7 13:33:09 Lumbosacral radiculitis 84308023 Active 2016 Ramon khan MD [address] , [address], [place], [address], [place] [facility] 7 13:33:10 Lumbosacral spondylosis without myelopathy 50079860 Active 2016 Ramon khan MD [address] , [address], [place], [address], [place] [facility] 7 13:33:11 Displacement of lumbar intervertebral disc without myelopathy 24297837 Active 2016 Ramon khan MD [address] , [address], [facility], [address], [place] [facility] 7 13:33:12 Osteoarthritis of knee 786648050 Active Ramon khan MD [address] , [address], [facility] [place], [address], [place] [facility] 8 14:20:03 Problem Notes None recorded. Procedures Surgical History Date Name Laterality Status Provider Name and Address Organization Details Recorded Time 08/15/19 20 Intra-articular Knee Steroid Injection completed Ramon Aquino MD [address] , [address], [place], [address], [place] [facility] 08/15/2019 13:30:09 07/25/19 20 Intra-articular Knee Steroid Injection completed Ramon Aquino MD [address] , [address], [place], [address], [place] [facility] 07/25/2019 11:18:23 03/27/19 20 Intra-articular Knee Steroid Injection completed Ramon Aquino MD [address] , [address], [place], [address], [place] [facility] 03/27/2019 13:52:30 03/13/19 20 Intra-articular Knee Steroid Injection completed Ramon Aquino MD [address] , [address], [place], [address], [place] [facility] 03/13/2019 14:02:01 12/13/19 19 Intra-articular Knee Steroid Injection completed Ramon Aquino MD [address] , [address], [place], [address], [place] [facility] 12/13/2018 09:21:27 11/29/19 19 Intra-articular Knee Steroid Injection completed Ramon Aquino MD [address] , [address], [place], [address], [place] [facility] 11/30/2018 15:09:31 08/23/19 19 Intra-articular Knee Steroid Injection completed Ramon Aquino MD [address] , [address], [place], [address], [place] [facility] 08/22/2018 14:41:48 08/09/19 19 Intra-articular Knee Steroid Injection completed Ramon Aquino MD [address] , [address], [place], [address], [place] [facility] 08/08/2018 13:47:26 05/03/19 19 Intra-articular Knee Steroid Injection completed Ramon Aquino MD [address] , [address], [place], [address], [place] [facility] 05/02/2018 14:19:29 04/18/19 19 Intra-articular Knee Steroid Injection completed Ramon Aquino MD [address] , [address], [place], [address], [place] [facility] 04/18/2018 14:34:57 01/17/20 18 Intra-articular Knee Steroid Injection completed Ramon Aquino MD [address] , [address], [place], [address], [place] [facility] 01/16/2018 13:47:30 01/04/20 18 Intra-articular Knee Steroid Injection completed Ramon Aquino MD [address] , [address], [place], [address], [place] [facility] 01/04/2018 10:08:01 10/12/19 18 Intra-articular Knee Steroid Injection completed Ramon Aquino MD [address] , [address], [place], [address], [place] [facility] 10/11/2017 15:04:53 09/28/19 18 Intra-articular Knee Steroid Injection completed Ramon Aquino MD [address] , [address], [place], [address], [place] [facility] 09/27/2017 14:19:25 08/23/19 18 Lumbar Epidural steroid injection under fluoroscopic guidance completed Ramon Aquino MD [address] , [address], [place], [address], [place] [facility] 08/22/2017 11:42:16 02/14/20 18 Lumbar Epidural steroid injection under fluoroscopic guidance completed Ramon Aquino MD [address] , [address], [place], [address], [place] [facility] 04/05/2017 13:39:16 01/26/20 17 Lumbar Epidural steroid injection under fluoroscopic guidance completed Ramon Aquino MD [address] , [address], [place], [address], [place] [facility] 01/25/2017 13:32:23 Cholecystectomy completed Maddyheaven Perry [place] [facility] 01/09/2017 14:22:01 Arthroscopic Surgery completed Maddy Perry [place] [facility] 01/09/2017 14:22:28 Cataract Surgery completed Maddy Perry [place] [facility] 01/09/2017 14:23:02 total knee replacement completed Ramon Aquino MD [address] , [address], [place], [address], [place] [facility] 04/13/2021 15:49:42 Imaging Results Imaging Date Name Status LastModified by Organiz ation Details LastModified Time 07/18/2019 XR, knee completed [facility] [address] [facility], [place], [address], 07/25/2019 10:57:32 Procedure Notes None recorded. Medical Equipment None Reported. Allergies No known drug allergies Medications Name Sig Start Date Stop Date Status Note LastModified by Organization Details LastModified Time ropinirole hcl 0.5 mg tabs 07/24 completed Not Available Not Available Not Available myrbetriq 25 mg tb24 01/03 completed Not Available Not Available Not Available atorvastati n calcium 80 mg tabs 07/24 completed Not Available Not Available Not Available atorvastati n calcium 40 mg tabs 11/28 completed Not Available Not Available Not Available spiriva respimat 1.25 mcg/act aers 07/24 completed Not Available Not Available Not Available zetia 10 mg tabs 02/27 completed Not Available Not Available Not Available fluocinonid e 0.1 % crea 01/09 completed Not Available Not Available Not Available cyclobenzap rine hcl 10 mg tabs 04/05 completed Not Available Not Available Not Available triamcinolo ne acetonide 0.1 % crea 01/09 completed Not Available Not Available Not Available cyclobenzap rine hydrochlori de 10 mg tabs 07/24 completed Not Available Not Available Not Available lyrica 75 mg caps 09/27 completed Not Available Not Available Not Available celecoxib 200 mg caps 08/22 completed Not Available Not Available Not Available fluad inj 2016-01/09 completed Not Available Not Available Not Available fluad inj 2017-11/28 completed Not Available Not Available Not Available dexamethaso ne 4 mg tabs 01/25 completed Not Available Not Available Not Available oxycod/apap tab 5-325mg 01/25 completed Not Available Not Available Not Available esomeprazol e magnesium 40 mg cpdr 11/28 completed Not Available Not Available Not Available pneumovax 23 25 mcg/0.5ml inj 11/28 completed Not Available Not Available Not Available prevnar 13 inj 01/09 completed Not Available Not Available Not Available gabapentin 300 mg caps 04/13 completed Not Available Not Available Not Available amox/k clav tab 875-125 11/28 completed Not Available Not Available Not Available hydroco/apa p tab 5-325mg 01/09 completed Not Available Not Available Not Available cephalexin 500 mg caps 01/09 completed Not Available Not Available Not Available cyclobenzap rine hydrochlori de 10 mg tabs 04/13 completed Not Available Not Available Not Available ropinirole hcl 0.5 mg tabs 11/28 completed Not Available Not Available Not Available prednisone 20 mg tabs 11/28 completed Not Available Not Available Not Available spiriva respimat 1.25 mcg/act aers 11/28 completed Not Available Not Available Not Available hydroxyzine hcl 25 mg tabs 08/08 completed Not Available Not Available Not Available silver sulfadiazin e 1 % crea 02/27 completed Not Available Not Available Not Available proair hfa 108 mcg/act aers 04/18 completed Not Available Not Available Not Available gabapentin 300 mg caps 11/28 completed Not Available Not Available Not Available breo ellipta inh 200-25 07/24 completed Not Available Not Available Not Available myrbetriq 50 mg tb24 11/28 completed Not Available Not Available Not Available premarin 0.625 mg/gm crea 04/18 completed Not Available Not Available Not Available clobetasol propionate 0.05 % oint 01/09 completed Not Available Not Available Not Available oxybutynin chloride er 10 mg tb24 11/28 completed Not Available Not Available Not Available tramadol hcl 50 mg tabs 01/09 completed Not Available Not Available Not Available duloxetine hcl 60 mg cpep 09/27 completed Not Available Not Available Not Available atorvastati n calcium 80 mg tabs 07/24 completed Not Available Not Available Not Available ropinirole hcl 0.25 mg tabs 01/09 completed Not Available Not Available Not Available ezetimibe 10 mg tabs 11/28 completed Not Available Not Available Not Available breo ellipta inh 100-25 04/13 completed Not Available Not Available Not Available mupirocin 2 % oint 01/09 completed Not Available Not Available Not Available celecoxib 200 mg capsule take 1 capsule by mouth once daily if needed 09/27 completed Not Available Not Available Not Available cyclobenzap rine 10 mg tablet TAKE 1 TABLET BY MOUTH TWICE DAILY active Not Available Not Available No t Available atorvastati n 40 mg tablet take 1 tablet by mouth once daily 11/28 completed Not Available Not Available Not Available silver sulfadiazin e 1 % topical cream 07/24 completed Not Available Not Available Not Available atorvastati n 80 mg tablet TK 1 T PO QD active Not Available Not Available No t Available oxybutynin chloride ER 10 mg tablet,exte nded release 24 hr take 1 tablet by mouth once daily 11/28 completed Not Available Not Available Not Available azithromyci n 250 mg tablet 04/13 completed Not Available Not Available Not Available hydrocodone 5 mg-acetamin ophen 325 mg tablet take 1 tablet by mouth every 6 hours if needed for pain 04/05 completed Not Available Not Available Not Available prednisone 20 mg tablet take 3 tablet by mouth with food or MILK for 3 days then take 2 t... (REFER TO PRESCRIPT ION NOTES). 08/08 completed Not Available Not Available Not Available peg-electro lyte solution 420 gram oral solution take 8 ounce(s) by mouth as directed 07/24 completed Not Available Not Available Not Available omeprazole 40 mg capsule,del ayed release TK 1 C PO QD 30 MIN B PB 04/13 completed Not Available Not Available Not Available aspirin 81 mg tablet,aime yed release Take 2 tablets every day by oral route. active Not Available Not Available No t Available tramadol 50 mg tablet take 1 to 2 tablets by mouth every 6 hours if needed 01/09 completed Not Available Not Available Not Available triamcinolo ne acetonide 0.1 % topical cream 01/09 completed Not Available Not Available Not Available oxycodone-a cetaminophe n 5 mg-325 mg tablet take 1 tablet by mouth every 6 hours if needed for SEVERE pain 04/05 completed Not Available Not Available Not Available ropinirole 0.25 mg tablet take 1 tablet by mouth at bedtime 01/09 completed Not Available Not Available Not Available cephalexin 500 mg capsule take 1 capsule by mouth twice a day for 2 weeks 01/09 completed Not Available Not Available Not Available esomeprazol e magnesium 40 mg capsule,del ayed release take 1 capsule by mouth once daily 07/24 completed Not Available Not Available Not Available ropinirole 0.5 mg tablet TK 1 T PO QD active Not Available Not Available No t Available dexamethaso ne 4 mg tablet take 1 tablet by mouth twice a day 01/25 completed Not Available Not Available Not Available prednisone 50 mg tablet 04/13 completed Not Available Not Available Not Available gabapentin 300 mg capsule TAKE 1 CAPSULE BY MOUTH THREE TIMES DAILY 04/13 completed Not Available Not Available Not Available hydroxyzine HCl 25 mg tablet take 1 tablet by mouth once daily at bedtime if needed 07/24 completed Not Available Not Available Not Available mupirocin 2 % topical ointment apply A SMALL AMOUNT to affected area twice a day 04/13 completed Not Available Not Available Not Available clobetasol 0.05 % topical ointment apply topically to affected area ON THE HANDS twice a day for UP ... (REFER TO PRESCRIPT ION NOTES). 01/09 completed Not Available Not Available Not Available albuterol sulfate HFA 90 mcg/actuati on aerosol inhaler take 2 puffs by mouth every 8 hours if needed for 7 days active Not Available Not Available No t Available amoxicillin 875 mg-potanetteu m clavulanate 125 mg tablet take 1 tablet by mouth twice a day for 10 days 08/08 completed Not Available Not Available Not Available Aspirnil 325 mg tablet Take 2 tablets every day by oral route. 01/16 completed Not Available Not Available Not Available Pneumovax-2 3 25 mcg/0.5 mL injection syringe inject 0.5 millilite r intramusc ularly 08/08 completed Not Available Not Available Not Available prednisolon e sodium phosphate 5 mg base/5 mL (6.7 mg/5 mL) oral soln 07/24 completed Not Available Not Available Not Available ezetimibe 10 mg tablet take 1 tablet by mouth once daily 08/22 completed Not Available Not Available Not Available Premarin 0.625 mg/gram vaginal cream APPLY A PEA-SIZED AMOUNT TO URETHRA DAILY FOR 2 WEEKS,THE N USE TWICE A WEEK as directed 07/24 completed Not Available Not Available Not Available duloxetine 60 mg capsule,del ayed release take 1 capsule by mouth once daily 04/13 completed Not Available Not Available Not Available fluocinonid e 0.1 % topical cream 01/09 completed Not Available Not Available Not Available Lyrica 75 mg capsule take 1 capsule by mouth three times a day 12/12 completed Not Available Not Available Not Available Prevnar 13 (PF) 0.5 mL intramuscul ar syringe inject 0.5 millilite r intramusc ularly 01/09 completed Not Available Not Available Not Available Aerochamber Plus Flow-Vu use as directed IN VISIT SUMMARY FROM 10/19/17 active Not Available Not Available No t Available Myrbetriq 25 mg tablet,exte nded release take 1 tablet by mouth once daily 01/16 completed Not Available Not Available Not Available Myrbetriq 50 mg tablet,exte nded release 11/28 completed Not Available Not Available Not Available Breo Ellipta 100 mcg-25 mcg/dose powder for inhalation INHALE 1 PUFF ITL ONCE DAILY active Not Available Not Available No t Available Breo Ellipta 200 mcg-25 mcg/dose powder for inhalation inhale 1 puff by inhalatio n route every day at the same time each day 07/24 completed Not Available Not Available Not Available Spiriva Respimat 1.25 mcg/actuati on solution for inhalation INL 2 PFS PO QD active Not Available Not Available No t Available Fluad 65yr up(PF)45 mcg(15 mcgx3)/0.5 mL intramuscul ar syringe inject 0.5 millilite r intramusc ularly 01/09 completed Not Available Not Available Not Available Fluad 65yr up(PF)45 mcg(15 mcgx3)/0.5 mL intramuscul ar syringe inject 0.5 millilite r intramusc ularly 08/22 completed Not Available Not Available Not Available ZTlido 1.8 % topical patch 04/13 completed Not Available Not Available Not Available Vitals Date Recorded Body height Body mass index (BMI) Body weight Heart rate Oxygen saturation Oxygen saturation in Arterial blood by Pulse oximetry Systolic blood pressure Diastolic blood pressure Provider Name and Address Organization Details Last Updated DateTime 0 160.02 cm 41.6 kg/m2 434414. 21 g 83 /min 97 % 97 % 147 mm[Hg] 81 mm[Hg] Lino khan [place] [facility] 0 13:42:58 Date Recorded Body height Heart rate Oxygen saturation Oxygen saturation in Arterial blood by Pulse oximetry Systolic blood pressure Diastolic blood pressure Provider Name and Address Organization Details Last Updated DateTime 0 160.02 cm 83 /min 97 % 97 % 147 mm[Hg] 81 mm[Hg] Lino khan [place] [facility] 0 13:30:13 Date Recorded Body height Heart rate Oxygen saturation Oxygen saturation in Arterial blood by Pulse oximetry Systolic blood pressure Diastolic blood pressure Provider Name and Address Organization Details Last Updated DateTime 0 160.02 cm 91 /min 97 % 97 % 133 mm[Hg] 73 mm[Hg] Cheli Garcia [place] [facility] 0 10:58:50 Date Recorded Body height Oxygen saturation Oxygen saturation in Arterial blood by Pulse oximetry Heart rate Body mass index (BMI) Body weight Systolic blood pressure Diastolic blood pressure Provider Name and Address Organization Details Last Updated DateTime 0 160.02 cm 98 % 98 % 98 /min 41.6 kg/m2 987297. 21 g 90 mm[Hg] 42 mm[Hg] Ramon khan MD [address] , [address], [place], [address], [place] [facility] 0 11:05:37 Social History Question Answer Notes LastModified by Organizat ion Details LastModified Time Tobacco Smoking Status Never Smoker Not Available [facility] 12/06/2019 03:16:11 What Is Your Level Of Alcohol Consumption? Moderate [id number] Information not available 12/06/2019 Are You Currently Employed? No [id number] Information not available 12/06/2019 Which Illicit Or Recreational Drugs Have You Used? 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 08/22/2018 [id number] Information not available 12/06/2019 Sex: Unknown Functional Status None recorded. Mental Status None recorded. Family History Relationship Description Onset Age of this Age Resolved Age Notes LastModified by Organization Details LastModified Time Father Chronic back pain [email or web address] Not available 2016 14:18:12 Father Alzheimer's disease [email or web address] Not available 2016 14:18:53 Sister Chronic back pain [email or web address] Not available 2016 14:18:12 Mother Heart disease [email or web address] Not available 2016 14:18:40 Paternal Grandmother Arthritis [email or web address] Not available 14:19:12 Medical History Condition Response Depression Y Arthritis Y Asthma Y GERD/Reflux Y High Cholesterol Y Gynecological HistoryNo gynecological history recorded. Obstetrics History GPAL:G 0 P 0 0 0 0 Past Encounters Encounter ID Performer Location Encounter Start Date Encounter Closed Date Diagnosis/Indication Diagnosis SNOMED-CT Code Diagnosis ICD10 Code Diagnosis Note [id number] Ramon Aquino MD PAIN OFFICE [address] [facility] [place] [address] 01/09/2017 14:01:45 01/09/2017 15:28:23 Spinal stenosis of lumbar region 99637043 M48.062 Lumbosacra l radiculitis 32438977 M54.17 Lumbosacra l spondylosis without myelopathy 15032156 M47.817 Displaceme nt of lumbar intervertebral disc without myelopathy 62232294 M51.26 [id number] Ramon Aquino MD PAIN OFFICE [address] [place] [address] 01/25/2017 11:48:05 01/25/2017 15:32:18 Spinal stenosis of lumbar region 66553929 M48.062 Lumbosacra l radiculitis 16694224 M54.17 Lumbosacra l spondylosis without myelopathy 40899259 M47.817 Displaceme nt of lumbar intervertebral disc without myelopathy 87525945 M51.26 [id number] Ramon Aquino MD PAIN OFFICE [address] [place] [address] 02/27/2017 12:53:03 02/27/2017 14:38:36 Spinal stenosis of lumbar region [id number] M48.062 Lumbosacra l radiculitis 52829198 M54.17 Lumbosacra l spondylosis without myelopathy 61274272 M47.817 Displaceme nt of lumbar intervertebral disc without myelopathy 76705847 M51.26 13568 Ramon Aquino MD PAIN OFFICE [address] [place] [address] 04/05/2017 10:11:11 04/05/2017 13:45:56 Spinal stenosis of lumbar region 18972031 M48.062 Lumbosacra l radiculitis 18758390 M54.17 Lumbosacra l spondylosis without myelopathy 22459951 M47.817 Displaceme nt of lumbar intervertebral disc without myelopathy 50194998 M51.26 78910 Ramon Aquino MD PAIN OFFICE [address] [place] [address] 05/11/2017 13:29:35 05/11/2017 15:25:20 Spinal stenosis of lumbar region 95400655 M48.062 Lumbosacra l radiculitis 31870095 M54.17 Lumbosacra l spondylosis without myelopathy 92888230 M47.817 Displaceme nt of lumbar intervertebral disc without myelopathy 53385245 M51.26 45701 Ramon Aquino MD PAIN OFFICE [address] [place] [address] 07/03/2017 13:19:17 07/14/2017 08:55:46 Spinal stenosis of lumbar region 14399601 M48.062 Lumbosacra l radiculitis 62779050 M54.17 Lumbosacra l spondylosis without myelopathy 42288598 M47.817 Displaceme nt of lumbar intervertebral disc without myelopathy 41205227 M51.26 08002 Ramon Aquino MD PAIN OFFICE [address] [place] [address] 08/22/2017 10:51:32 08/22/2017 11:49:32 Spinal stenosis of lumbar region 03640105 M48.062 Lumbosacra l radiculitis 24267590 M54.17 Lumbosacra l spondylosis without myelopathy 22018923 M47.817 Displaceme nt of lumbar intervertebral disc without myelopathy 03523142 M51.26 08913 Ramon Aquino MD PAIN OFFICE [address] [place] [address] 09/27/2017 11:27:58 09/27/2017 14:47:38 Osteoarthritis of knee 018824350 M17.0 Spinal ha nosis of lumbar region 20441279 M48.062 Lumbosacra l radiculitis 36242472 M54.17 Lumbosacra l spondylosis without myelopathy 92377390 M47.817 Displaceme nt of lumbar intervertebral disc without myelopathy 20600700 M51.26 72608 Ramon Aquino MD PAIN OFFICE [address] [place] [address] 10/11/2017 11:26:34 10/11/2017 15:09:43 Lumbosacral radiculitis 55202384 M54.17 Osteoarthr itis of knee 929984850 M17.0 Spinal ha nosis of lumbar region 60905753 M48.062 Lumbosacra l spondylosis without myelopathy 58955316 M47.817 Displaceme nt of lumbar intervertebral disc without myelopathy 05806381 M51.26 48563 Ramon Aquino MD PAIN OFFICE [address] [place] [address] 12/12/2017 11:31:19 01/02/2018 15:18:40 Osteoarthritis of knee 718222019 M17.0 Spinal ha nosis of lumbar region 33470467 M48.062 Lumbosacra l radiculitis 58182074 M54.17 Lumbosacra l spondylosis without myelopathy 40493268 M47.817 Displaceme nt of lumbar intervertebral disc without myelopathy 93136228 M51.26 92695 Ramon Aquino MD PAIN OFFICE [address] [place] [address] 01/03/2018 14:23:47 01/04/2018 10:10:46 Osteoarthritis of knee 958284316 M17.0 Spinal ha nosis of lumbar region 36166549 M48.062 Lumbosacra l radiculitis 79852776 M54.17 Lumbosacra l spondylosis without myelopathy 93265180 M47.817 Displaceme nt of lumbar intervertebral disc without myelopathy 45694950 M51.26 52621 Ramon Aquino MD PAIN OFFICE [address] [place] [address] 01/16/2018 13:04:29 01/16/2018 13:49:28 Lumbosacral radiculitis 03690983 M54.17 Osteoarthr itis of knee 977928630 M17.0 Spinal ha nosis of lumbar region 68622369 M48.062 Lumbosacra l spondylosis without myelopathy 71708939 M47.817 Displaceme nt of lumbar intervertebral disc without myelopathy 48935583 M51.26 04304 Ramon Aquino MD PAIN OFFICE [address] [place] [address] 04/18/2018 13:04:05 04/18/2018 14:38:28 Osteoarthritis of knee 975669351 M17.0 Spinal ha nosis of lumbar region 16944946 M48.062 Lumbosacra l radiculitis 98899706 M54.17 Lumbosacra l spondylosis without myelopathy 41132300 M47.817 Displaceme nt of lumbar intervertebral disc without myelopathy 82592446 M51.26 30292 Ramon Aquino MD PAIN OFFICE [address] [place] [address] 05/02/2018 13:18:56 05/02/2018 14:22:08 Lumbosacral radiculitis 44473532 M54.17 Osteoarthr itis of knee 409073215 M17.0 Spinal ha nosis of lumbar region 79291008 M48.062 Lumbosacra l spondylosis without myelopathy 02634070 M47.817 Displaceme nt of lumbar intervertebral disc without myelopathy 49218235 M51.26 58538 Ramon Aquino MD PAIN OFFICE [address] [place] [address] 08/08/2018 13:07:47 08/08/2018 13:52:31 Osteoarthritis of knee 180897812 M17.0 Spinal ha nosis of lumbar region 53400270 M48.062 Lumbosacra l radiculitis 32832510 M54.17 Lumbosacra l spondylosis without myelopathy 69856215 M47.817 Displaceme nt of lumbar intervertebral disc without myelopathy 57194544 M51.26 41294 Ramon Aquino MD PAIN OFFICE [address] [place] [address] 08/22/2018 13:44:14 08/22/2018 14:44:06 Lumbosacral radiculitis 08918085 M54.17 Osteoarthr itis of knee 552169291 M17.0 Spinal ha nosis of lumbar region 25265450 M48.062 Lumbosacra l spondylosis without myelopathy 85624819 M47.817 Displaceme nt of lumbar intervertebral disc without myelopathy 48645364 M51.26 93717 Ramon Aquino MD [facility] PAIN OFFICE [address] [facility] [place] [address] 11/28/2018 15:07:37 11/30/2018 15:11:20 Osteoarthritis of knee 289931488 M17.0 Spinal ha nosis of lumbar region 10177028 M48.062 Lumbosacra l radiculitis 42440135 M54.17 Lumbosacra l spondylosis without myelopathy 42760804 M47.817 Displaceme nt of lumbar intervertebral disc without myelopathy 30264262 M51.26 47079 Ramon Aquino MD [facility] PAIN OFFICE [address] [facility] [place] [address] 12/12/2018 15:26:51 12/13/2018 09:57:44 Lumbosacral radiculitis 07154489 M54.17 Osteoarthr itis of knee 779225960 M17.0 Spinal ha nosis of lumbar region 11141893 M48.062 Lumbosacra l spondylosis without myelopathy 01687476 M47.817 Displaceme nt of lumbar intervertebral disc without myelopathy 87359182 M51.26 43585 Ramon Aquino MD [facility] PAIN OFFICE [address] [facility] [place] [address] 03/13/2019 13:41:19 03/13/2019 14:04:27 Osteoarthritis of knee 582591801 M17.0 Spinal ha nosis of lumbar region 31202248 M48.062 Lumbosacra l radiculitis 54949437 M54.17 Lumbosacra l spondylosis without myelopathy 88114474 M47.817 Displaceme nt of lumbar intervertebral disc without myelopathy 59812910 M51.26 21412 Ramon Aquino MD [facility] PAIN OFFICE [address] [facility] [place] [address] 03/27/2019 13:02:41 03/27/2019 13:54:11 Lumbosacral radiculitis 92870719 M54.17 Osteoarthr itis of knee 592757119 M17.0 Spinal ha nosis of lumbar region 45666474 M48.062 Lumbosacra l spondylosis without myelopathy 03995770 M47.817 Displaceme nt of lumbar intervertebral disc without myelopathy 33225854 M51.26 37850 Ramon Aquino MD PAIN OFFICE [address] [place] [address] 07/25/2019 10:49:41 07/25/2019 11:20:21 Osteoarthritis of knee 950827565 M17.0 Spinal ha nosis of lumbar region 04063147 M48.062 Lumbosacra l radiculitis 40372056 M54.17 Lumbosacra l spondylosis without myelopathy 77614498 M47.817 Displaceme nt of lumbar intervertebral disc without myelopathy 42530822 M51.26 31690 Ramon Aquino MD PAIN OFFICE [address] [place] [address] 08/15/2019 11:01:12 08/15/2019 13:42:11 Lumbosacral radiculitis 56692659 M54.17 Osteoarthr itis of knee 002228097 M17.0 Spinal ha nosis of lumbar region 35779416 M48.062 Lumbosacra l spondylosis without myelopathy 03163416 M47.817 Displaceme nt of lumbar intervertebral disc without myelopathy 17316543 M51.26 50251 Ramon Aquino MD PAIN OFFICE [address]: [place] [place] [address] 04/13/2021 15:45:02 04/14/2021 08:58:24 Lumbosacral radiculitis 47203625 M54.17 Osteoarthr itis of knee 143900618 M17.0 Spinal ha nosis of lumbar region 26736227 M48.062 Lumbosacra l spondylosis without myelopathy 11458810 M47.817 Displaceme nt of lumbar intervertebral disc without myelopathy 84910265 M51.26 Health Concerns Section Related Observation LastModified by Organization Detai ls LastModified Time None Recorded Concern Status LastModified by Organization Details LastModified Time None Recorded Advance Directives Directive None Recorded Payers Encounter Date Sequence Insurance Name Policy Number Policy Tavarez Covered Member ID Tavarez Member ID Guarantor Name 03/13/2019 1 [place] COMMUNITY [place]AN - DUAL COMPLETE - SNP PLAN (MEDICARE REPLACEMENT HMO) [facility] Gayla E Tony [id number] Gayla Tony 03/27/2019 1 [place] COMMUNITY [place]AN - DUAL COMPLETE - SNP PLAN (MEDICARE REPLACEMENT HMO) [employer] Gayla E Tony [id number] Gayla Tony 07/25/2019 1 [place] - COMMUNITY PLAN - DUAL COMPLETE - SNP PLAN (MEDICARE REPLACEMENT HMO) [employer] Gayla E Tony [id number] Gayla Tony 08/15/2019 1 [place] - COMMUNITY [place]AN - DUAL COMPLETE - SNP PLAN (MEDICARE REPLACEMENT HMO) [employer] Gayla E Tony [id number] Gayla Tony 04/13/2021 1 [place] - COMMUNITY PLAN - DUAL COMPLETE - SNP PLAN (MEDICARE REPLACEMENT HMO) [employer] Gayla E Tony [id number] Gayla Tony Notes Date Note Type Note Provider Name and Address Organization Details Recorded Time 03/13/2019 text/html She is here for a left knee steroid injection under ultrasound guidance. X-ray of both knees shows marked medial femorotibial joint space narrowing due to osteoarthritis. Ramon Aquino MD [address] [facility] , [address], [place], [address], [place] [facility] 03/14/2019 10:22:52 03/27/2019 text/html She is here for a right knee steroid injection under ultrasound guidance Ramon Aquino MD [address] , [address], [place], [address], [place] [facility] 03/27/2019 14:15:44 07/25/2019 text/html She is here for a left knee steroid injection under ultrasound guidance. X-ray of both knees shows marked medial femorotibial joint space narrowing due to osteoarthritis. Ramon Aquino MD [address] , [address], [place], [address], [place] [facility] 07/25/2019 14:13:36 08/15/2019 text/html She is here for a right knee steroid injection under ultrasound guidance Ramon Aquino MD [address] , [address], [place], [address], [place] [facility] 08/16/2019 08:57:28 04/13/2021 text/html This is a follow up. She is S/P bilateral knee replacements and is doing well. She feels she does not need to take gabapentin any longer. She still gets some cramping in her legs and uses cyclobenzaprine as needed. She lost a close friend and has been depressed for the past year. She is on sertraline and feels better. Ramon Aquino MD [address] [place] [address] , [address], [place], [address], [place] [facility] 04/14/2021 09:18:33 OBGyn Episode No OBEpisode recorded.
--- NOTE | 2024-04-08 15:13 | MHC.OFFWIV ---
Intake Vital Signs 04/08/24 15:14 Weight 224 lb BP 128/76 Blood Pressure Location Rt brachial Position Sitting Pulse 64 Pulse Source Pulse Oximeter Pulse Oximetry (%) 94 Oxygen Delivery Method Room Air Intake Visit Reasons: EP big lump on the head Intake Note: Patient here for lump on top of head that she noticed a couple of days ago. Patient Tobacco Use Status: Never used Tobacco Allergies N.K.D.A. Allergy (Unknown, Uncoded 04/08/24 15:15) unknown Do you need a note to return to daycare/school/sports/work: No HPI HPI Comments History of Present Illness Details History of Present Illness - The patient is an 78-year-old female presenting with a sore lump on the scalp, noted for its sudden onset and painful nature. - Initial awareness of the lump was noted 2 days ago, with no accompanying injuries or falls. - Denies itchiness of the area - A recent hairdressing session involved a haircut and wash without noticeable injuries or comments from the hairdresser regarding the scalp. - The patient denies symptoms like headaches or dizziness or lightheadedness. - There is a notable past medical history involving eczema. - There is no history of MRSA infections. - The presented symptoms were not improved by past eczema management strategies. Physical Exam General: Cooperative, healthy appearing, comfortable, no acute distress and well developed Orientation: Patient oriented x3 Limitations: No limitations Head: see skin Ears: Hearing grossly normal bilaterally Nose: Normal external nose present Face and sinus: Normal facial exam Eyes: Appearance normal, both eyes and all related structures Neck: Normal visual inspection and Yes full ROM Respiratory: Normal respiratory effort and able to speak in complete sentences. Skin: right temporal scalp has a 1cm raised, erythematous, warm and tender area, no drainage noted. Neuro: Patient oriented x3 Extremities: Normal to inspection [facility] Medical History (Updated 04/08/24 @ 15:33 by Sima Crowe PA-C) Hyperkalemia Aortic stenosis Annual physical exam Iron deficiency Hyperglycemia Depression Pain of left thumb Pneumonia Sinusitis, acute History of PFTs History of mammogram Osteoarthritis Hyperlipidemia Asthma Surgical History Hx of cardiac cath Family History Father No problems noted. Mother No problems noted. Social History Housing: House Patient Tobacco Use Status: Never used Tobacco e-Cigarette/Vaping Use: Never Used service: No Current occupational status: retired Cognitive needs: No Hearing needs: No Vision needs: Yes Physical Exam Vital Signs: Last Vital Signs Pulse 64 04/08/24 15:14 BP 128/76 04/08/24 15:14 Pulse Ox 94 04/08/24 15:14 Oxygen Delivery Method Room Air 04/08/24 15:14 Assessment & Plan Assessment & Plan (1) Cellulitis of scalp: Code(s): L03.811 - Cellulitis of head [any part, except face] Plan: The patient is diagnosed with cellulitis of the scalp, likely bacterial in origin, and will begin treatment with oral Cephalexin, taken four times daily for a seven-day span. The possibility of utilizing topical Clindamycin will be considered if further intervention is necessary. Monitoring for response to antibiotics is crucial, with expectations of improvement within the initial 2-3 days. The patient was instructed to report any lack of improvement or exacerbation of symptoms to PCP or return to [place] clinic. Considering the patient's history of eczema, normal management of the eczema is to continue with Benadryl for itching control, but eczema treatments such as Tramsinolone are not indicated for the current issue due to the infectious nature of the condition. Patient was informed and verbally consented to the use of an ambient scribe for clinic note documentation during this visit. Medications: New cephalexin 500 mg PO Q6H 28 caps 0RF Coding Level of Care Code Est Pt Level 3 (63496) Diagnoses Cellulitis of scalp L03.811
[2024-04-08 15:14] VITALS: BP 128/76; PULSE 64; O2SAT 94
== END 2024-04-08 15:34 | disposition home or self-care (01) ==
PROVIDERS: PCP Internal Medicine; Visit Provider Physician Assistant
DX: L03.811 Cellulitis of head [any part, except face] (principal)

== ENCOUNTER → 2024-04-08 14:56 | Outpatient (BNVA) | payer MEDICARE, SELFPAY | PROVIDERS: PCP Internal Medicine | DX: L03.811 Cellulitis of head [any part, except face] (principal) | CPT/HCPCS: 99212 ==

== ENCOUNTER → 2024-05-02 10:51 | Outpatient (REF) | payer OTHER, SELFPAY ==
--- NOTE | 2024-05-02 10:55 | CA_ITS ---
Transthoracic Echocardiogram Patient (Last, First, Middle): Gayla Jimenez E Gender: Female Date of : 1945 Age: 78 Procedure Date: 05/02/2024 Procedure Type: Transthoracic Echocardiogram Location: OP Height: 160. cm Weight: 102.06 kg BSA: 2.03 m2 Heart Rate: 80 bpm BP: 142 / 70 mmHg Medical Field Representative: DIANNE Referring MD: Homero Ponce MD Symptoms: I35.0 - Nonrheumatic aortic (valve) stenosis Study Quality: Fair w/Contrast ECG Rhythm: Sinus Conclusions: - The left ventricular systolic function is low normal. The calculated ejection fraction is 54% by biplane method. - There is moderate aortic valve stenosis. Findings Procedure Information Contrast agent, definity, is being given per protocol without apparent complications. The quality of the study was technically difficult. The study quality is limited by patients body habitus. Left Ventricle Normal left ventricular cavity size. The left ventricular systolic function is low normal. The calculated ejection fraction is 54% by biplane method. Evidence suggests grade I (mild) diastolic dysfunction. There is mild septal asymmetric hypertrophy. Even with contrast, difficult to assess wall motion. Overall, no overt findings. Right Ventricle Normal right ventricular cavity size and systolic function. Atria The left atrium is mildly dilated. The right atrium is normal in size. Aortic Valve The aortic valve was not well visualized. There is moderate aortic valve stenosis. Trace to mild aortic regurgitation. Mitral Valve There is mild mitral annular calcification. There is trace mitral valve regurgitation. There is no mitral valve stenosis. Pulmonic Valve The pulmonic valve is likely normal. Tricuspid Valve There is trace tricuspid valve regurgitation. There is no evidence of pulmonary hypertension. Great Vessels The asc aorta and aortic arch are normal in size. Venous The inferior vena cava is normal in size and collapses greater than 50% with inspiration. Pericardium/Pleural There is no evidence of pericardial effusion. Prior Study Comparison No significant change compared to prior study dated: 04/25/2023. Measurements 2D Linear Measurements IVSd: 1.11 0.6-0.9/0.6-1.0 cm LVIDd: 5.33 3.9-5.3/4.2-5.9 cm LVIDd Index: 2.63 2.4-3.2/2.2-3.1 cm/m2 LVIDs: 2.99 2.0-3.6 cm LVPWd: 1.10 0.7-1.1 cm LA Diam: 3.90 2.7-3.8/3.0-4.0 cm LAIDs Index: 1.92 1.5-2.3 cm/m2 LV Mass: 288.33 67-162/88-224 g LV Mass Index: 142.04 43-95/49-115 g/m2 LVOT Diam: 2.00 3.0+(-)1.3 cm 2D Systolic Function EF 4C: 49.00 >55% EF 2C: 58.00 >55% EF BiP: 53.90 >55% Mitral Valve MV VTI: 0.30 MV Pk Patrick: 1.48 MV Mn Patrick: 0.91 MV Pk Grad: 9.00 MV Mn Grad: 4.00 MV Pk E: 0.95 MV PK A: 1.38 MV Decel Time: 225.00 E/A: 0.70 E'Lateral: 5.33 E'Medial: 4.68 E/E' Med: 20.40 E/E' Lat: 17.90 PHT: 66.00 MVA PHT: 3.33 MVA Continuity: 3.03 Decel Ballard: 4.24 Aortic Valve AoV Pk Patrick: 3.28 AoV Mn Patrick: 2.55 AoV VTI: 0.82 AoV Pk Grad: 43.00 Aov Mn Grad: 29.00 NEREIDA Cont.VTI: 1.12 AI Pk Patrick: 3.86 AI Ballard: 3.41 LVOT LVOT Pk Patrick: 1.20 LVOT Mn Patrick: 0.89 LVOT VTI: 0.29 LVOT Pk Grad: 6.00 LVOT Mn Grad: 4.00 LVOT Diam: 2.00 LVOT Area: 3.14 Diastolic Function MV Pk E: 0.95 MV Pk A: 1.38 E/A: 0.70 E'Medial: 4.68 E/E' Med: 20.40 E' Laterial: 5.33 E/E' Lat: 17.90 Right Ventricle TAPSE (mm): 25.70 TVS' Patrick: 10.90 Tricuspid Valve TR Pk Patrick: 1.40 TR Pk Grad: 8.00 RA Press: 8.00 RVSP: 16.00 Great Vessels Aorta Sinus of Valsalva: 3.50 2.0-3.5 cm Ao Asc: 3.20 2.1-3.4 cm Ao Arch: 2.90 Pulmonary Valve PV Pk Patrick: 0.86 Peak PV Grad: 3.00 Updated in Other Vendor System with Status of Final Cristian Beckford MD electronically signed on 05/04/2024 10:21:20 AM with status of Final
--- OUTSIDE RECORDS SUMMARY | 2024-05-02 13:54 | XMS_ITS | Clinical Summary ---
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
--- OUTSIDE RECORDS SUMMARY | 2024-05-02 13:55 | XMS_ITS | Data Portability ---
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 Patient Instructions Encounter Date Encounter Id Patient Instructions Last Modified By Organization Details Last Modified Time 03/13/2019 [id number] She was advised against bed rest lasting longer than four days and to continue activities as tolerated. [email or web address] Not available 03/13/2019 14:01:49 03/27/2019 [id number] She was advised against bed rest lasting longer than four days and to continue activities as tolerated. [email or web address] Not available 03/27/2019 13:52:16 07/25/2019 [id number] She was advised against bed rest lasting longer than four days and to continue activities as tolerated. [email or web address] Not available 07/25/2019 11:18:09 08/15/2019 [id number] She was advised against bed rest lasting longer than four days and to continue activities as tolerated. [email or web address] Not available 08/15/2019 13:29:57 04/13/2021 [id number] Telehealth visit: The patient was located at [...] XR, knee No observ ation record ed. [facility] [address] [place] [address], [address], 07/25/2019 10:57:32 Result Notes None recorded. Problems Name Problem SNOMED Code Status Onset Date Resolution Date Notes Provider Name and Address Organization Details Recorded Time Spinal stenosis of lumbar region 20336958 Active 2016 Ramon khan MD [email or web address], [place], [address], [place] [facility] 7 13:33:09 Lumbosacral radiculitis 43838357 Active 2016 Ramon khan MD [email or web address] , [address], [facility], [address], [place] [facility] 7 13:33:10 Lumbosacral spondylosis without myelopathy 98679466 Active 2016 Ramon khan MD [email or web address] , [address], [place], [address], [place] [facility] 7 13:33:11 Displacement of lumbar intervertebral disc without myelopathy 36572082 Active 2016 Ramon khan MD [email or web address] , [address], [facility] [place], [address], [place] [facility] 7 13:33:12 Osteoarthritis of knee 185327100 Active Ramon khan MD [email or web address] , [address], [facility], [address], [place] [facility] 8 14:20:03 Problem Notes None recorded. Procedures Surgical History Date Name Laterality Status Provider Name and Address Organization Details Recorded Time 08/15/19 20 Intra-articular Knee Steroid Injection completed Ramon Aquino MD [email or web address] , [address], [place], [address], [place] [facility] 08/15/2019 13:30:09 07/25/19 20 Intra-articular Knee Steroid Injection completed Ramon Aquino MD [email or web address] , [address], [place], [address], [place] [facility] 07/25/2019 11:18:23 03/27/19 20 Intra-articular Knee Steroid Injection completed Ramon Aquino MD [email or web address] , [address], [place], [address], [place] [facility] 03/27/2019 13:52:30 03/13/19 20 Intra-articular Knee Steroid Injection completed Ramon Auqino MD [email or web address] , [address], [place], [address], [place] [facility] 03/13/2019 14:02:01 12/13/19 19 Intra-articular Knee Steroid Injection completed Ramon Aquino MD [address] , [address], [place], [address], [place] [facility] 12/13/2018 09:21:27 11/29/19 19 Intra-articular Knee Steroid Injection completed Ramon Aquino MD [email or web address] , [address], [place], [address], [place] [facility] 11/30/2018 15:09:31 08/23/19 19 Intra-articular Knee Steroid Injection completed Ramon Aquino MD [email or web address] , [address], [place], [address], [place] [facility] 08/22/2018 14:41:48 08/09/19 19 Intra-articular Knee Steroid Injection completed Ramon Aquino MD [email or web address] , [address], [place], [address], [place] [facility] 08/08/2018 13:47:26 05/03/19 19 Intra-articular Knee Steroid Injection completed Ramon Aquino MD [email or web address] , [address], [place], [address], [place] [facility] 05/02/2018 14:19:29 04/18/19 19 Intra-articular Knee Steroid Injection completed Ramon Aquino MD [email or web address] , [address], [place], [address], [place] [facility] 04/18/2018 14:34:57 01/17/20 18 Intra-articular Knee Steroid Injection completed Ramon Aquino MD [email or web address] , [address], [place], [address], [place] [facility] 01/16/2018 13:47:30 01/04/20 18 Intra-articular Knee Steroid Injection completed Ramon Aquino MD [email or web address] , [address], [place], [address], [place] [facility] 01/04/2018 10:08:01 10/12/19 18 Intra-articular Knee Steroid Injection completed Ramon Aquino MD [email or web address] , [address], [place], [address], [place] [facility] 10/11/2017 15:04:53 09/28/19 18 Intra-articular Knee Steroid Injection completed Ramon Aquino MD [email or web address] , [address], [place], [address], [place] [facility] 09/27/2017 14:19:25 08/23/19 18 Lumbar Epidural steroid injection under fluoroscopic guidance completed Ramon Aquino MD [email or web address] , [address], [place], [address], [place] [facility] 08/22/2017 11:42:16 02/14/20 18 Lumbar Epidural steroid injection under fluoroscopic guidance completed Ramon Aquino MD [address] , [address], [place], [address], [place] [facility] 04/05/2017 13:39:16 01/26/20 17 Lumbar Epidural steroid injection under fluoroscopic guidance completed Ramon Aquino MD [address] , [address], [place], [address], [place] [facility] 01/25/2017 13:32:23 Cholecystectomy completed Maddy Perry [place] [facility] 01/09/2017 14:22:01 Arthroscopic Surgery completed Maddy Perry [place] [facility] 01/09/2017 14:22:28 Cataract Surgery completed Maddy Perry [place] [facility] 01/09/2017 14:23:02 total knee replacement completed Ramon Aquino MD [address] , [address], [place], [address], [place] [facility] 04/13/2021 15:49:42 Imaging Results Imaging Date Name Status LastModified by Organiz ation Details LastModified Time 07/18/2019 XR, knee completed [facility] [address] [facility], [place], [address], 07/25/2019 10:57:32 Procedure Notes None recorded. Medical Equipment None Reported. Allergies No known drug allergies Medications Name Sig Start Date Stop Date Status Note LastModified by Organization Details LastModified Time myrbetriq 25 mg tb24 01/03 completed Not [...] Available Not Available Not Available fluad inj 2017-18 01/09 completed Not Available Not Available Not [...] Not Available ropinirole hcl 0.5 mg tabs 07/24 completed [...] Available Not Available Not Available fluad inj 2017-19 11/28 completed Not Available Not Available Not [...] saturation in Arterial blood by Pulse oximetry Pain severity - 0-10 verbal numeric rating [Score] - Reported Systolic blood pressure Diastolic blood pressure Provider Name and Address Organization Details Last Updated DateTime 0 160.02 cm 41.6 kg/m2 601466. 21 g 83 /min 97 % 97 % 4 147 mm[Hg] 81 mm[Hg] Lino khan [place] [facility] 0 13:42:58 Date Recorded Body height Heart rate Oxygen saturation Oxygen saturation in Arterial blood by Pulse oximetry Pain severity - 0-10 verbal numeric rating [Score] - Reported Systolic blood pressure Diastolic blood pressure Provider Name and Address Organization Details Last Updated DateTime 0 160.02 cm 83 /min 97 % 97 % 4 147 mm[Hg] 81 mm[Hg] Lino khan MA [...] Management 0 10:58:50 Date Recorded Body height Pain severity - 0-10 verbal numeric rating [Score] - Reported Oxygen saturation Oxygen saturation in Arterial blood by Pulse oximetry Heart rate Body mass index (BMI) Body weight Systolic blood pressure Diastolic blood pressure Provider Name and Address Organization Details Last Updated DateTime 0 160.02 cm 5 98 % 98 % 98 /min 41.6 kg/m2 276299. 21 g 90 mm[Hg] 42 mm[Hg] Ramon khan MD [facility] [email or web address], [facility] [place], [address], [place] [facility] 0 11:05:37 Social History Question Answer Notes LastModified by Organizat ion Details LastModified Time Tobacco Smoking Status Never Smoker Not Available [employer] 12/06/2019 03:16:11 What Is Your Level Of Alcohol Consumption? Moderate [id number] Information not available 12/06/2019 Are You Currently Employed? No [id number] Information not available 12/06/2019 Which Illicit Or Recreational Drugs Have You Used? 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 08/22/2018 [id number] Information not available 12/06/2019 Sex: Unknown Functional [...] Not available 14:19:12 Medical History Condition Response Arthritis Y Depression Y Asthma Y High Cholesterol Y GERD/Reflux Y Gynecological HistoryNo gynecological history recorded. Obstetrics History GPAL:G 0 P 0 0 0 0 Past Encounters Encounter ID Performer Location Encounter Start Date Encounter Closed Date Diagnosis/Indication Diagnosis SNOMED-CT Code Diagnosis ICD10 Code Diagnosis Note [id number] Ramon Aquino MD [facility] [address] [place] [address] 01/09/2017 14:01:45 01/09/2017 15:28:23 Spinal stenosis of lumbar region 11018494 M48.062 Lumbosacra l radiculitis 74628192 M54.17 Lumbosacra l spondylosis without myelopathy 07704884 M47.817 Displaceme nt of lumbar intervertebral disc without myelopathy 31140185 M51.26 [id number] Ramon Aquino MD [facility] [address] [place] [address] 01/25/2017 11:48:05 01/25/2017 15:32:18 Spinal stenosis of lumbar region 80590098 M48.062 Lumbosacra l radiculitis 87449648 M54.17 Lumbosacra l spondylosis without myelopathy 42046766 M47.817 Displaceme nt of lumbar intervertebral disc without myelopathy 51409082 M51.26 [id number] Ramon Aquino MD PAIN OFFICE [address] [place] [address] 02/27/2017 12:53:03 02/27/2017 14:38:36 Spinal stenosis of lumbar region 43713447 M48.062 Lumbosacra l radiculitis 68249813 M54.17 Lumbosacra l spondylosis without myelopathy 85499915 M47.817 Displaceme nt of lumbar intervertebral disc without myelopathy 97924000 M51.26 [id number] Ramon Aquino MD [facility] [address] [place] [address] 04/05/2017 10:11:11 04/05/2017 13:45:56 Spinal stenosis of lumbar region 86089235 M48.062 Lumbosacra l radiculitis 95995596 M54.17 Lumbosacra l spondylosis without myelopathy 83093422 M47.817 Displaceme nt of lumbar intervertebral disc without myelopathy 60729178 M51.26 [id number] Ramon Aquino MD [facility] [address] [place] [address] 05/11/2017 13:29:35 05/11/2017 15:25:20 Spinal stenosis of lumbar region 57851620 M48.062 Lumbosacra l radiculitis 00200534 M54.17 Lumbosacra l spondylosis without myelopathy 54713700 M47.817 Displaceme nt of lumbar intervertebral disc without myelopathy 62165070 M51.26 [id number] Ramon Aquino MD PAIN OFFICE [address] [place] [address] 07/03/2017 13:19:17 07/14/2017 08:55:46 Spinal stenosis of lumbar region 25260876 M48.062 Lumbosacra l radiculitis 62998699 M54.17 Lumbosacra l spondylosis without myelopathy 10481605 M47.817 Displaceme nt of lumbar intervertebral disc without myelopathy 61332439 M51.26 [id number] Ramon Aquino MD PAIN OFFICE [address] [place] [address] 08/22/2017 10:51:32 08/22/2017 11:49:32 Spinal stenosis of lumbar region 34301052 M48.062 Lumbosacra l radiculitis 19825204 M54.17 Lumbosacra l spondylosis without myelopathy 02194172 M47.817 Displaceme nt of lumbar intervertebral disc without myelopathy 72274545 M51.26 [id number] Ramon Aquino MD PAIN OFFICE [address] [place] [address] 09/27/2017 11:27:58 09/27/2017 14:47:38 Osteoarthritis of knee 602743691 M17.0 Spinal ha nosis of lumbar region 41709309 M48.062 Lumbosacra l radiculitis 48549507 M54.17 Lumbosacra l spondylosis without myelopathy 00868554 M47.817 Displaceme nt of lumbar intervertebral disc without myelopathy 70883881 M51.26 [id number] Ramon Aquino MD PAIN OFFICE [address] [place] [address] 10/11/2017 11:26:34 10/11/2017 15:09:43 Lumbosacral radiculitis 45619487 M54.17 Osteoarthr itis of knee 795209882 M17.0 Spinal ha nosis of lumbar region 83333280 M48.062 Lumbosacra l spondylosis without myelopathy 54225225 M47.817 Displaceme nt of lumbar intervertebral disc without myelopathy 65664181 M51.26 [id number] Ramon Aquino MD [facility] [address] [employer] [place] [address] 12/12/2017 11:31:19 01/02/2018 15:18:40 Osteoarthritis of knee 552265722 M17.0 Spinal ha nosis of lumbar region 93944484 M48.062 Lumbosacra l radiculitis 51697185 M54.17 Lumbosacra l spondylosis without myelopathy 18514102 M47.817 Displaceme nt of lumbar intervertebral disc without myelopathy 11597297 M51.26 [id number] Ramon Aquino MD PAIN OFFICE [address] [place] [address] 01/03/2018 14:23:47 01/04/2018 10:10:46 Osteoarthritis of knee 864734929 M17.0 Spinal ha nosis of lumbar region 54263329 M48.062 Lumbosacra l radiculitis 03352346 M54.17 Lumbosacra l spondylosis without myelopathy 74194142 M47.817 Displaceme nt of lumbar intervertebral disc without myelopathy 28151683 M51.26 [id number] Ramon Aquino MD [facility] [address] [place] [address] 01/16/2018 13:04:29 01/16/2018 13:49:28 Lumbosacral radiculitis 51725541 M54.17 Osteoarthr itis of knee 985423329 M17.0 Spinal ha nosis of lumbar region 12027574 M48.062 Lumbosacra l spondylosis without myelopathy 56254105 M47.817 Displaceme nt of lumbar intervertebral disc without myelopathy 91482191 M51.26 [id number] Ramon Aquino MD [facility] [address] [place] [address] 04/18/2018 13:04:05 04/18/2018 14:38:28 Osteoarthritis of knee 240657694 M17.0 Spinal ha nosis of lumbar region 80524930 M48.062 Lumbosacra l radiculitis 21132996 M54.17 Lumbosacra l spondylosis without myelopathy 11121338 M47.817 Displaceme nt of lumbar intervertebral disc without myelopathy 31836392 M51.26 [id number] Ramon Aquino MD [facility] [address] [place] [address] 05/02/2018 13:18:56 05/02/2018 14:22:08 Lumbosacral radiculitis 58424217 M54.17 Osteoarthr itis of knee 910874108 M17.0 Spinal ha nosis of lumbar region 42311143 M48.062 Lumbosacra l spondylosis without myelopathy 54204420 M47.817 Displaceme nt of lumbar intervertebral disc without myelopathy 83753876 M51.26 [id number] Ramon Aquino MD [facility] [address] [place] [address] 08/08/2018 13:07:47 08/08/2018 13:52:31 Osteoarthritis of knee 673127404 M17.0 Spinal ha nosis of lumbar region 10407681 M48.062 Lumbosacra l radiculitis 73792671 M54.17 Lumbosacra l spondylosis without myelopathy 59665922 M47.817 Displaceme nt of lumbar intervertebral disc without myelopathy 00349303 M51.26 [id number] Ramon Aquino MD [facility] [address] [place] [address] 08/22/2018 13:44:14 08/22/2018 14:44:06 Lumbosacral radiculitis 60890449 M54.17 Osteoarthr itis of knee 299646796 M17.0 Spinal ha nosis of lumbar region 33161480 M48.062 Lumbosacra l spondylosis without myelopathy 70758524 M47.817 Displaceme nt of lumbar intervertebral disc without myelopathy 10992085 M51.26 [id number] Ramon Aquino MD PAIN OFFICE [address] [place] [address] 11/28/2018 15:07:37 11/30/2018 15:11:20 Osteoarthritis of knee 895460268 M17.0 Spinal ha nosis of lumbar region 44493376 M48.062 Lumbosacra l radiculitis 44478942 M54.17 Lumbosacra l spondylosis without myelopathy 42154656 M47.817 Displaceme nt of lumbar intervertebral disc without myelopathy 74713717 M51.26 [id number] Ramon Aquino MD PAIN OFFICE [address] [place] [address] 12/12/2018 15:26:51 12/13/2018 09:57:44 Lumbosacral radiculitis 81252625 M54.17 Osteoarthr itis of knee 577224333 M17.0 Spinal ha nosis of lumbar region 05337792 M48.062 Lumbosacra l spondylosis without myelopathy 90397502 M47.817 Displaceme nt of lumbar intervertebral disc without myelopathy 83801650 M51.26 [id number] Ramon Aquino MD PAIN OFFICE [address] [place] [address] 03/13/2019 13:41:19 03/13/2019 14:04:27 Osteoarthritis of knee 574255308 M17.0 Spinal ha nosis of lumbar region 58798878 M48.062 Lumbosacra l radiculitis 51654537 M54.17 Lumbosacra l spondylosis without myelopathy 07346973 M47.817 Displaceme nt of lumbar intervertebral disc without myelopathy 26067368 M51.26 [id number] Ramon Aquino MD PAIN OFFICE [address] [place] [address] 03/27/2019 13:02:41 03/27/2019 13:54:11 Lumbosacral radiculitis 42032319 M54.17 Osteoarthr itis of knee 949381813 M17.0 Spinal ha nosis of lumbar region 11627489 M48.062 Lumbosacra l spondylosis without myelopathy 22914016 M47.817 Displaceme nt of lumbar intervertebral disc without myelopathy 78440844 M51.26 [id number] Ramon Aquino MD PAIN OFFICE [address] [place] [address] 07/25/2019 10:49:41 07/25/2019 11:20:21 Osteoarthritis of knee 384683328 M17.0 Spinal ha nosis of lumbar region 25859851 M48.062 Lumbosacra l radiculitis 99586289 M54.17 Lumbosacra l spondylosis without myelopathy 73443699 M47.817 Displaceme nt of lumbar intervertebral disc without myelopathy 88482792 M51.26 [id number] Ramon Aquino MD PAIN OFFICE [address] [place] [address] 08/15/2019 11:01:12 08/15/2019 13:42:11 Lumbosacral radiculitis 57662294 M54.17 Osteoarthr itis of knee 354075800 M17.0 Spinal ha nosis of lumbar region 80439709 M48.062 Lumbosacra l spondylosis without myelopathy 73256373 M47.817 Displaceme nt of lumbar intervertebral disc without myelopathy 85424043 M51.26 [id number] Ramon Aquino MD PAIN OFFICE [address] [place] [address] 04/13/2021 15:45:02 04/14/2021 08:58:24 Lumbosacral radiculitis 54637691 M54.17 Osteoarthr itis of knee 900302161 M17.0 Spinal ha nosis of lumbar region 78969896 M48.062 Lumbosacra l spondylosis without myelopathy 25988593 M47.817 Displaceme nt of lumbar intervertebral disc without myelopathy 17701712 M51.26 Health Concerns Section Related Observation LastModified by Organization Detai ls LastModified Time None Recorded Concern Status LastModified by Organization Details LastModified Time None Recorded Advance Directives Directive None Recorded Payers Encounter Date Sequence Insurance Name Policy Number Policy Tavarez Covered Member ID Tavarez Member ID Guarantor Name 03/13/[address] [facility] - COMMUNITY PLAN - DUAL COMPLETE - SNP PLAN (MEDICARE REPLACEMENT HMO) [employer] Gayla E Tony [id number] Gayla Tony 03/27/[address] [facility] - COMMUNITY PLAN - DUAL COMPLETE - SNP PLAN (MEDICARE REPLACEMENT HMO) [employer] Gayla E Tony [id number] Gayla Tony 07/25/[address] [facility] - COMMUNITY PLAN - DUAL COMPLETE - SNP PLAN (MEDICARE REPLACEMENT HMO) [employer] Gayla E Tony [id number] Gayla Tony 08/15/[address] [facility] - COMMUNITY PLAN - DUAL COMPLETE - SNP PLAN (MEDICARE REPLACEMENT HMO) [employer] Gayla E Tony [id number] Gayla Tony 04/13/[address] [facility] - COMMUNITY PLAN - DUAL COMPLETE - SNP PLAN (MEDICARE REPLACEMENT HMO) [employer] Gayla E Tony [id number] Gayla Tony Notes Date Note Type Note Provider Name and Address Organization Details Recorded Time 03/13/2019 text/html She is here for a left knee steroid injection under ultrasound guidance. X-ray of both knees shows marked medial femorotibial joint space narrowing due to osteoarthritis. Ramon Aquino MD [address] [facility] [address] [facility] , [address] [facility], [place], [address], [place] [facility] 03/14/2019 10:22:52 03/27/2019 text/html She is here for a right knee steroid injection under ultrasound guidance Ramon Aquino MD [address] [facility] , [address], [place], [address], [place] [facility] 03/27/2019 14:15:44 07/25/2019 text/html She is here for a left knee steroid injection under ultrasound guidance. X-ray of both knees shows marked medial femorotibial joint space narrowing due to osteoarthritis. Ramon Aquino MD [address] [facility] , [address], [place], [address], [place] [facility] 07/25/2019 14:13:36 08/15/2019 text/html She is here for a right knee steroid injection under ultrasound guidance Ramon Aquino MD [address] [facility] , [address], [place], [address], [facility] 08/16/2019 08:57:28 04/13/2021 text/html This [...] sertraline and feels better. Ramon Aquino MD [address] [facility] , [address], [place], [address], [facility] Management 04/14/2021 09:18:33 OBGyn Episode No OBEpisode recorded.
== END ==
LOC: HO.CARD 10:51
PROVIDERS: PCP Internal Medicine; Visit Provider Internal Medicine Cardiovascular Disease
DX: I35.0 Nonrheumatic aortic (valve) stenosis (principal)
CPT/HCPCS: 93306; Q9957

== ENCOUNTER → 2024-05-02 10:55 | Outpatient (BNV) | payer OTHER, SELFPAY | PROVIDERS: PCP Internal Medicine; Visit Provider Internal Medicine | DX: I42.2 Other hypertrophic cardiomyopathy (principal); I35.2 Nonrheumatic aortic (valve) stenosis with insufficiency | CPT/HCPCS: 93306 ==

== ENCOUNTER 2024-05-21 09:31 | Outpatient (REF) | payer OTHER, SELFPAY ==
[2024-05-21 10:26] LABS: MANUAL DIFF FLAG NO
[2024-05-21 10:41] LABS: Basophils Percent Auto 0.6 % (0-2); Eosinophils Absolute Auto 0.1 X10*3/uL (0.0-0.4); Eosinophils Percent Auto 2.7 % (0-4); Hemoglobin 11.8 g/dl (12.0-16.0); Imm Gran Abs Auto 0.01 X10*3/uL (0.00-0.03); Imm Gran Pct Auto 0.2 % (0.0-0.4); Lymphocytes Absolute Auto 1.6 X10*3/uL (1.2-4.9); Lymphocytes Percent Auto 30.3 % (20-40); Mean Corpuscular HGB Conc 33.7 g/dl (31.0-35.0); Mean Corpuscular Hemoglobin 32.2 pg (27.0-33.0); Mean Corpuscular Volume 95.4 fL (80.0-98.0); Mean Platelet Volume 10.1 fL (9.4-12.3); Monocytes Absolute Auto 0.4 X10*3/uL (0.1-1.2); Monocytes Percent Auto 8.6 % (2-11); Neutrophils Absolute Auto 2.9 x10*3/uL (2.0-8.3); Neutrophils Percent Auto 57.6 % (45-73); Platelet Count 256 X10*3/uL (160-400); Red Blood Count 3.67 X10*6/uL (4.20-5.50); Red Cell Distribution Width 14.3 % (11.0-16.0); White Blood Count 5.1 X10*3/uL (4.8-10.8)
--- OUTSIDE RECORDS SUMMARY | 2024-05-21 10:46 | XMS_ITS | Clinical Summary ---
Author Organization [facility] Address [address] [place] [address] Care Team Providers Care Sprinkling System Irrigator Name Role Phone Hoda Valentine MD Primary [...] Influencers of Health Screening 01/18/2022 COVID-19 Vaccine (2023-2 5 season) 2023 Influenza Vaccine (Season Ended) 2024 HIB Vaccines Aged Out No longer eligi [...] Documents on File Type Date Recorded Patient Consulting Project Director Expl anation Health Care Decision (hx) 04/25/2014 [...] (hx) 04/25/2014 AD VILA DIRECTIVE Care Teams Sprinkling System Irrigator Relationship Specialty Start Date End Date Hoda Valentine MD PCP - General Accounting Machine Servicer 11/13/19
--- OUTSIDE RECORDS SUMMARY | 2024-05-21 10:46 | XMS_ITS | Data Portability ---
Author Organization [place] [facility], PA[place] OFFICE Address [address] [facility],[address] [address] Care Team Providers Care Retail Manager Name Role Phone EL ROTHMAN Primary Care [...] zaprine 10 mg tablet 2019 020 rikki [id number], [address] [place], [place], [id number], 0 11:06:05 Patient TargetsNo targets recorded. Patient Instructions Encounter Date Encounter Id Patient Instructions Last Modified By Organization Details Last Modified Time 03/13/2019 [id number] She was advised against bed rest lasting longer than four days and to continue activities as tolerated. [email or web address] Not available 03/13/2019 14:01:49 03/27/2019 [id number] She was advised against bed rest lasting longer than four days and to continue activities as tolerated. [email or web address] Not available 03/27/2019 13:52:16 07/25/2019 [id number] She was advised against bed rest lasting longer than four days and to continue activities as tolerated. [email or web address] Not available 07/25/2019 11:18:09 08/15/2019 [id number] She was advised against bed rest lasting longer than four days and to continue activities as tolerated. [email or web address] Not available 08/15/2019 13:29:57 04/13/2021 [id number] Telehealth visit: The patient was located at [...] XR, knee No observ ation record ed. [facility] Imaging Dept [address] [place] [address], [address], 07/25/2019 10:57:32 Result Notes None recorded. Problems Name Problem SNOMED Code Status Onset Date Resolution Date Notes Provider Name and Address Organization Details Recorded Time Spinal stenosis of lumbar region 93386814 Active 2016 Ramon khan MD [address] , [address], [place], [address], [place] [facility] 7 13:33:09 Lumbosacral radiculitis 00793780 Active 2016 Ramon khan MD [address] , [address], [facility] [place], [address], [place] [facility] 7 13:33:10 Lumbosacral spondylosis without myelopathy 33214672 Active 2016 Ramon khan MD [address] , [address], [place], [address], [place] [facility] 7 13:33:11 Displacement of lumbar intervertebral disc without myelopathy 66190273 Active 2016 Ramon khan MD [address] , [address], [facility] [place], [address], [place] [facility] 7 13:33:12 Osteoarthritis of knee 202250519 Active Ramon khan MD [address] , [address], [facility] [place], [address], [place] [facility] 8 14:20:03 Problem Notes None recorded. Procedures Surgical History Date Name Laterality Status Provider Name and Address Organization Details Recorded Time 08/15/19 20 Intra-articular Knee Steroid Injection completed Ramon Aquino MD [address] , [address], [place], [address], [place] [facility] 08/15/2019 13:30:09 07/25/19 20 Intra-articular Knee Steroid Injection completed Ramon Aquino MD [address] , [address], [place], [address], [place] [facility] 07/25/2019 11:18:23 03/27/19 20 Intra-articular Knee Steroid Injection completed Ramon Aquino MD [address] , [address], [place], [address], [place] [facility] 03/27/2019 13:52:30 03/13/19 20 Intra-articular Knee Steroid Injection completed Ramon Aquino MD [address] , [address], [place], [address], [place] [facility] 03/13/2019 14:02:01 12/13/19 19 Intra-articular Knee Steroid Injection completed Ramon Aquino MD [address] , [address], [place], [address], [place] [facility] 12/13/2018 09:21:27 11/29/19 19 Intra-articular Knee Steroid Injection completed Ramon Aquino MD [address] , [address], [place], [address], [place] [facility] 11/30/2018 15:09:31 08/23/19 19 Intra-articular Knee Steroid Injection completed Ramon Aquino MD [address] , [address], [place], [address], [place] [facility] 08/22/2018 14:41:48 08/09/19 19 Intra-articular Knee Steroid Injection completed Ramon Aquino MD [address] , [address], [place], [address], [place] [facility] 08/08/2018 13:47:26 05/03/19 19 Intra-articular Knee Steroid Injection completed Ramon Aquino MD [address] , [address], [place], [address], [place] [facility] 05/02/2018 14:19:29 04/18/19 19 Intra-articular Knee Steroid Injection completed Ramon Aquino MD [address] , [address], [place], [address], [place] [facility] 04/18/2018 14:34:57 01/17/20 18 Intra-articular Knee Steroid Injection completed Ramon Aquino MD [address] , [address], [place], [address], [place] [facility] 01/16/2018 13:47:30 01/04/20 18 Intra-articular Knee Steroid Injection completed Ramon Aquino MD [address] , [address], [place], [address], [place] [facility] 01/04/2018 10:08:01 10/12/19 18 Intra-articular Knee Steroid Injection completed Ramon Aquino MD [address] , [address], [place], [address], [place] [facility] 10/11/2017 15:04:53 09/28/19 18 Intra-articular Knee Steroid Injection completed Ramon Aquino MD [address] , [address], [place], [address], [place] [facility] 09/27/2017 14:19:25 08/23/19 18 Lumbar Epidural steroid injection under fluoroscopic guidance completed Ramon Aquino MD [address] , [address], [place], [address], [place] [facility] 08/22/2017 11:42:16 02/14/20 18 Lumbar Epidural steroid injection under fluoroscopic guidance completed Ramon Aquino MD [address] , [address], [place], [address], [place] [facility] 04/05/2017 13:39:16 01/26/20 17 Lumbar Epidural steroid injection under fluoroscopic guidance completed Ramon Aquino MD [address] , [address], [place], [address], [place] [facility] 01/25/2017 13:32:23 Cholecystectomy completed Maddyheaven Perry [place] [facility] 01/09/2017 14:22:01 Arthroscopic Surgery completed Maddy Perry [place] [facility] 01/09/2017 14:22:28 Cataract Surgery completed Maddy Perry [place] [facility] 01/09/2017 14:23:02 total knee replacement completed Ramon Aquino MD [address] , [address], [place], [address], [place] [facility] 04/13/2021 15:49:42 Imaging Results Imaging Date Name Status LastModified by Organiz ation Details LastModified Time 07/18/2019 XR, knee completed [facility] [address] [facility], [place], [address], 07/25/2019 10:57:32 Procedure Notes None recorded. Medical [...] Updated DateTime 0 160.02 cm 41.6 kg/m2 759979. 21 g 83 /min 97 % 97 [...] % 98 % 98 /min 41.6 kg/m2 338225. 21 g 90 mm[Hg] 42 mm[Hg] Ramon khan MD [facility] [address] , [address], [facility] [place], [address], [place] [facility] 0 11:05:37 Social History Question Answer Notes LastModified by Organizat ion Details LastModified Time Tobacco Smoking Status Never Smoker Not Available [employer] 12/06/2019 03:16:11 What Is Your Level Of Alcohol Consumption? Moderate [id number] Information not available 12/06/2019 Are You Currently Employed? No [id number] Information not available 12/06/2019 Which Illicit Or Recreational Drugs Have You Used? 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 08/22/2018 [id number] Information not available 12/06/2019 Sex: Unknown Functional [...] History Condition Response Depression Y Arthritis Y High Cholesterol Y Asthma Y GERD/Reflux Y Gynecological HistoryNo gynecological history recorded. Obstetrics History GPAL:G 0 P 0 0 0 0 Past Encounters Encounter ID Performer Location Encounter Start Date Encounter Closed Date Diagnosis/Indication Diagnosis SNOMED-CT Code Diagnosis ICD10 Code Diagnosis Note [id number] Ramon Aquino MD [facility] [address] [place] [address] 01/09/2017 14:01:45 01/09/2017 15:28:23 Spinal stenosis of lumbar region 93372847 M48.062 Lumbosacra l radiculitis 87403657 M54.17 Lumbosacra l spondylosis without myelopathy 85255539 M47.817 Displaceme nt of lumbar intervertebral disc without myelopathy 10303243 M51.26 [id number] Ramon Aquino MD [facility] [address] [place] [address] 01/25/2017 11:48:05 01/25/2017 15:32:18 Spinal stenosis of lumbar region 83681050 M48.062 Lumbosacra l radiculitis 04648488 M54.17 Lumbosacra l spondylosis without myelopathy 25708290 M47.817 Displaceme nt of lumbar intervertebral disc without myelopathy 35723604 M51.26 [id number] Ramon Aquino MD PAIN OFFICE [address] [place] [address] 02/27/2017 12:53:03 02/27/2017 14:38:36 Spinal stenosis of lumbar region 81051639 M48.062 Lumbosacra l radiculitis 01404974 M54.17 Lumbosacra l spondylosis without myelopathy 51120755 M47.817 Displaceme nt of lumbar intervertebral disc without myelopathy 67699849 M51.26 [id number] Ramon Aquino MD [facility] [address] [place] [address] 04/05/2017 10:11:11 04/05/2017 13:45:56 Spinal stenosis of lumbar region 54014954 M48.062 Lumbosacra l radiculitis 79623939 M54.17 Lumbosacra l spondylosis without myelopathy 11828057 M47.817 Displaceme nt of lumbar intervertebral disc without myelopathy 60598516 M51.26 75622 Ramon Aquino MD [facility] [address] [address] 05/11/2017 13:29:35 05/11/2017 15:25:20 Spinal stenosis of lumbar region 07378711 M48.062 Lumbosacra l radiculitis 73466435 M54.17 Lumbosacra l spondylosis without myelopathy 72431286 M47.817 Displaceme nt of lumbar intervertebral disc without myelopathy 87684041 M51.26 30290 Ramon Aqunio MD PAIN OFFICE [address] [address] 07/03/2017 13:19:17 07/14/2017 08:55:46 Spinal stenosis of lumbar region 52712499 M48.062 Lumbosacra l radiculitis 74844427 M54.17 Lumbosacra l spondylosis without myelopathy 39913050 M47.817 Displaceme nt of lumbar intervertebral disc without myelopathy 00712415 M51.26 [id number] Ramon Aquino MD PAIN OFFICE [address] [place] [address] 08/22/2017 10:51:32 08/22/2017 11:49:32 Spinal stenosis of lumbar region 52242779 M48.062 Lumbosacra l radiculitis 11732138 M54.17 Lumbosacra l spondylosis without myelopathy 70566833 M47.817 Displaceme nt of lumbar intervertebral disc without myelopathy 57218097 M51.26 [id number] Ramon Aquino MD PAIN OFFICE [address] [address] 09/27/2017 11:27:58 09/27/2017 14:47:38 Osteoarthritis of knee 825948260 M17.0 Spinal ha nosis of lumbar region 66574904 M48.062 Lumbosacra l radiculitis 23241967 M54.17 Lumbosacra l spondylosis without myelopathy 95940709 M47.817 Displaceme nt of lumbar intervertebral disc without myelopathy 96962478 M51.26 35938 Ramon Aquino MD PAIN OFFICE [address] [place] [address] 10/11/2017 11:26:34 10/11/2017 15:09:43 Lumbosacral radiculitis 46683936 M54.17 Osteoarthr itis of knee 061556496 M17.0 Spinal ha nosis of lumbar region 65917563 M48.062 Lumbosacra l spondylosis without myelopathy 99894452 M47.817 Displaceme nt of lumbar intervertebral disc without myelopathy 58606260 M51.26 97094 Ramon Aquino MD [facility] [address] [place] [address] 12/12/2017 11:31:19 01/02/2018 15:18:40 Osteoarthritis of knee 846756891 M17.0 Spinal ha nosis of lumbar region 85929868 M48.062 Lumbosacra l radiculitis 07463070 M54.17 Lumbosacra l spondylosis without myelopathy 85371367 M47.817 Displaceme nt of lumbar intervertebral disc without myelopathy 63266761 M51.26 34072 Ramon Aquino MD PAIN OFFICE [address] [place] [address] 01/03/2018 14:23:47 01/04/2018 10:10:46 Osteoarthritis of knee 596526524 M17.0 Spinal ha nosis of lumbar region 11097620 M48.062 Lumbosacra l radiculitis 54715067 M54.17 Lumbosacra l spondylosis without myelopathy 63084856 M47.817 Displaceme nt of lumbar intervertebral disc without myelopathy 72036909 M51.26 88288 Ramon Aquino MD [facility] [address] [place] [address] 01/16/2018 13:04:29 01/16/2018 13:49:28 Lumbosacral radiculitis 29313884 M54.17 Osteoarthr itis of knee 121941460 M17.0 Spinal ha nosis of lumbar region 00394422 M48.062 Lumbosacra l spondylosis without myelopathy 75902412 M47.817 Displaceme nt of lumbar intervertebral disc without myelopathy 94368978 M51.26 91023 Ramon Aquino MD [facility] [address] [place] [address] 04/18/2018 13:04:05 04/18/2018 14:38:28 Osteoarthritis of knee 687898011 M17.0 Spinal ha nosis of lumbar region 35922875 M48.062 Lumbosacra l radiculitis 81358189 M54.17 Lumbosacra l spondylosis without myelopathy 52525030 M47.817 Displaceme nt of lumbar intervertebral disc without myelopathy 67545950 M51.26 61471 Ramon Aquino MD [facility] [address] [place] [address] 05/02/2018 13:18:56 05/02/2018 14:22:08 Lumbosacral radiculitis 72266004 M54.17 Osteoarthr itis of knee 227153950 M17.0 Spinal ha nosis of lumbar region 92580608 M48.062 Lumbosacra l spondylosis without myelopathy 86945298 M47.817 Displaceme nt of lumbar intervertebral disc without myelopathy 05128985 M51.26 89585 Ramon Aquino MD [facility] [address] [place] [address] 08/08/2018 13:07:47 08/08/2018 13:52:31 Osteoarthritis of knee 431469735 M17.0 Spinal ha nosis of lumbar region 01280156 M48.062 Lumbosacra l radiculitis 68539399 M54.17 Lumbosacra l spondylosis without myelopathy 94313507 M47.817 Displaceme nt of lumbar intervertebral disc without myelopathy 25056417 M51.26 82333 Ramon Aquino MD [facility] [address] [place] [address] 08/22/2018 13:44:14 08/22/2018 14:44:06 Lumbosacral radiculitis 24320105 M54.17 Osteoarthr itis of knee 662488008 M17.0 Spinal ha nosis of lumbar region 00978717 M48.062 Lumbosacra l spondylosis without myelopathy 00254276 M47.817 Displaceme nt of lumbar intervertebral disc without myelopathy 86684748 M51.26 65791 Ramon Aquino MD PAIN OFFICE [address] [place] [address] 11/28/2018 15:07:37 11/30/2018 15:11:20 Osteoarthritis of knee 585809110 M17.0 Spinal ha nosis of lumbar region 54242225 M48.062 Lumbosacra l radiculitis 19047743 M54.17 Lumbosacra l spondylosis without myelopathy 86257977 M47.817 Displaceme nt of lumbar intervertebral disc without myelopathy 47291080 M51.26 25949 Ramon Aquino MD PAIN OFFICE [address] [address] 12/12/2018 15:26:51 12/13/2018 09:57:44 Lumbosacral radiculitis 72056982 M54.17 Osteoarthr itis of knee 004268763 M17.0 Spinal ha nosis of lumbar region 34255566 M48.062 Lumbosacra l spondylosis without myelopathy 57834300 M47.817 Displaceme nt of lumbar intervertebral disc without myelopathy 44374274 M51.26 72578 Ramon Aquino MD PAIN OFFICE [address] [address] 03/13/2019 13:41:19 03/13/2019 14:04:27 Osteoarthritis of knee 528716872 M17.0 Spinal ha nosis of lumbar region 64751583 M48.062 Lumbosacra l radiculitis 85555459 M54.17 Lumbosacra l spondylosis without myelopathy 56248717 M47.817 Displaceme nt of lumbar intervertebral disc without myelopathy 06228307 M51.26 72215 Ramon Aquino MD PAIN OFFICE [address] [place] [address] 03/27/2019 13:02:41 03/27/2019 13:54:11 Lumbosacral radiculitis 56765193 M54.17 Osteoarthr itis of knee 109544556 M17.0 Spinal ha nosis of lumbar region 25613259 M48.062 Lumbosacra l spondylosis without myelopathy 36434781 M47.817 Displaceme nt of lumbar intervertebral disc without myelopathy 74657328 M51.26 67699 Ramon Aquino MD PAIN OFFICE [address] [place] [address] 07/25/2019 10:49:41 07/25/2019 11:20:21 Osteoarthritis of knee 530908972 M17.0 Spinal ha nosis of lumbar region 39657198 M48.062 Lumbosacra l radiculitis 55476407 M54.17 Lumbosacra l spondylosis without myelopathy 01802215 M47.817 Displaceme nt of lumbar intervertebral disc without myelopathy 76333279 M51.26 30109 Ramon Aquino MD PAIN OFFICE [address] [place] [address] 08/15/2019 11:01:12 08/15/2019 13:42:11 Lumbosacral radiculitis 07089560 M54.17 Osteoarthr itis of knee 814621035 M17.0 Spinal ha nosis of lumbar region 97009998 M48.062 Lumbosacra l spondylosis without myelopathy 92826581 M47.817 Displaceme nt of lumbar intervertebral disc without myelopathy 49581783 M51.26 09742 Ramon Aquino MD PAIN OFFICE [address] [place] [address] 04/13/2021 15:45:02 04/14/2021 08:58:24 Lumbosacral radiculitis 22508790 M54.17 Osteoarthr itis of knee 071066456 M17.0 Spinal ha nosis of lumbar region 16707224 M48.062 Lumbosacra l spondylosis without myelopathy 41042471 M47.817 Displaceme nt of lumbar intervertebral disc without myelopathy 29082801 M51.26 Health Concerns Section Related Observation LastModified by Organization Detai ls LastModified Time None Recorded Concern Status LastModified by Organization Details LastModified Time None Recorded Advance Directives Directive None Recorded Payers Encounter Date Sequence Insurance Name Policy Number Policy Tavarez Covered Member ID Tavarez Member ID Guarantor Name 03/13/2019 1 [facility] - COMMUNITY PLAN - DUAL COMPLETE - SNP PLAN (MEDICARE REPLACEMENT HMO) [employer] Gayla E Tony [id number] Gayla Tony 03/27/2019 1 [facility] - COMMUNITY PLAN - DUAL COMPLETE - SNP PLAN (MEDICARE REPLACEMENT HMO) [employer] Gayla E Tony [id number] Gayla Tony 07/25/2019 1 [facility] - COMMUNITY PLAN - DUAL COMPLETE - SNP PLAN (MEDICARE REPLACEMENT HMO) [employer] Gayla E Tony [id number] Gayla Tony 08/15/2019 1 [facility] - COMMUNITY PLAN - DUAL COMPLETE - SNP PLAN (MEDICARE REPLACEMENT HMO) [employer] Gayla E Tony [id number] Gayla Tony 04/13/2021 1 [facility] - COMMUNITY PLAN - DUAL COMPLETE - SNP PLAN (MEDICARE REPLACEMENT HMO) [employer] Gayla E Tony [id number] Gayla Tony Notes Date Note Type Note Provider Name and Address Organization Details Recorded Time 03/13/2019 text/html She is here for a left knee steroid injection under ultrasound guidance. X-ray of both knees shows marked medial femorotibial joint space narrowing due to osteoarthritis. Ramon Aquino MD [address] , [address] [facility], [place], [address], [place] [facility] 03/14/2019 10:22:52 03/27/2019 text/html She is here for a right knee steroid injection under ultrasound guidance Ramon Aquino MD [address] [facility] , [address], [place], [address], [place] [facility] 03/27/2019 14:15:44 07/25/2019 text/html She is here for a left knee steroid injection under ultrasound guidance. X-ray of both knees shows marked medial femorotibial joint space narrowing due to osteoarthritis. Ramon Aquino MD [address] [facility] , [address], [place], [address], [place] [facility] 07/25/2019 14:13:36 08/15/2019 text/html She is here for a right knee steroid injection under ultrasound guidance Ramon Aquino MD [address] [facility] , [address], [place], [address], [facility] 08/16/2019 08:57:28 04/13/2021 text/html [...] and feels better. Ramon Aquino MD [address] [facility] , [address], [place], [address], [facility] 04/14/2021 09:18:33 OBGyn Episode No OBEpisode recorded.
[2024-05-21 11:17] LABS: Estimated Average Glucose 114 mg/dL; Hemoglobin A1C 118.6566 umol/L; Hemoglobin A1c % 5.6 % (<6.0); Total Hemoglobin (HGBA1C) 3170.0208 umol/L
[2024-05-21 11:39] LABS: Alanine Aminotransferase 21 U/L (0-31); Albumin Level 3.9 g/dL (3.5-5.0); Alkaline Phosphatase 79 U/L (39-117); Anion Gap 9 (12-20); Aspartate Amino Transferase 23 U/L (5-31); Bilirubin Total 0.6 mg/dL (0.0-1.0); Blood Urea Nitrogen 27 mg/dL (9-16); Carbon Dioxide 27 mmol/L (22-29); Chloride 110 mmol/L (96-108); Cholesterol 155 mg/dL (<200); Estimated Glomerular Filt Rate 56; Glucose Fasting 100 mg/dL (60-99); HDL Cholesterol 57 mg/dL (>40); LDL Cholesterol Calculated 73 mg/dL (<100); Potassium 4.4 mmol/L (3.3-5.1); Sodium 142 mmol/L (135-145); TSH reflex Free T4 2.09 uIU/mL (0.32-4.0); Total Protein 6.7 g/dL (6.5-8.0); Triglycerides 128 mg/dL (<150)
== END 2024-05-21 09:32 | disposition home or self-care (01) ==
LOC: HO.HMGCLDS 09:31
PROVIDERS: PCP Internal Medicine; Visit Provider Internal Medicine
DX: Z00.00 Encounter for general adult medical examination without abnormal findings (principal); J44.9 Chronic obstructive pulmonary disease, unspecified; I35.0 Nonrheumatic aortic (valve) stenosis; M54.50 Low back pain, unspecified; E78.5 Hyperlipidemia, unspecified
CPT/HCPCS: 36415; 80053; 80061; 83036; 84443; 85025

== ENCOUNTER 2024-06-14 12:26 | Outpatient (AMB) | payer OTHER, SELFPAY ==
[2024-06-14 12:27] VITALS: BP 130/70; PULSE 87; RESP 20; TEMP 36.6; O2SAT 95; BMI 39.3
--- NOTE | 2024-06-14 12:27 | MHC.PC.OV ---
Vital Signs 06/14/24 12:27 Height 5 ft 3 in Weight 222 lb BMI 39.3 BP 130/70 Blood Pressure Location Lt brachial Position Sitting Respiration 20 Pulse 87 Pulse Source Pulse Oximeter Temp 97.8 F Temp Source Oral Pulse Oximetry (%) 95 Oxygen Delivery Method Room Air Intake Visit Reasons: 6 month followup Intake Note: Pt is here today for 6 months follow up visit. Allergies N.K.D.A. Allergy (Unknown, Uncoded 06/14/24 12:29) unknown Medication List - Last Reconciled 06/14/24 by Hoda Valentine MD albuterol sulfate 90 mcg/actuation 2 puffs PO Q4H PRN aspirin 81 mg PO DAILY atorvastatin 80 mg PO DAILY Breo Ellipta 200-25 mcg/dose (fluticasone furoate-vilanterol) 1 inh inhalation DAILY NS cholecalciferol (vitamin D3) 25 mcg PO DAILY diphenhydramine HCl (Benadryl) 25 mg PO BID flaxseed oil 1,000 mg PO DAILY incontinence pad, liner, disp (Poise Pads) 1 eight times a day Incruse Ellipta 62.5 mcg/actuation (umeclidinium) 1 inh inhalation BEDTIME NS krill oil PO ropinirole 0.5 mg PO DAILY sertraline 100 mg PO DAILY triamcinolone acetonide 0.1% 1 appl topical BID 14 days vitamin B complex 1 tab PO DAILY Tobacco use date assessed: 06/14/24 Fall risk assessment: No Falls in past year Last assessed Fall Risk: 06/14/24 Dental Screening Dental Screen Date: 06/14/24 Did you have a dental visit in the last 12 months?: Yes Did you have a dental problem in the last 6 months where you did not have access to dental care?: No Was dental information given to patient?: Patient has dentist HPI 6 month followup HPI Details Patient presents for the follow-up. She complains of worsening of chronic neck, bilateral shoulders right more than left and right hip pain worse when walking. COPD is controlled on inhalers. Chronic depression is stable on sertraline. Hyperlipidemia is controlled on atorvastatin. Patient has been trying to lose weight decreasing caloric intake, but tends to eat cookies at night. [facility] Medical History (Updated 06/14/24 @ 13:03 by Hoda Valentine MD) Hyperkalemia Aortic stenosis Annual physical exam Iron deficiency Hyperglycemia Depression Pain of left thumb Pneumonia Sinusitis, acute History of PFTs History of mammogram Osteoarthritis Hyperlipidemia Asthma Surgical History Hx of cardiac cath Family History Father No problems noted. Mother No problems noted. Social History Housing: House Patient Tobacco Use Status: Never used Tobacco e-Cigarette/Vaping Use: Never Used service: No Current occupational status: retired Cognitive needs: No Hearing needs: No Vision needs: Yes Questionnaire PHQ-9 Over the last 2 weeks, how often have you been bothered by any of the following problems? 1. Little interest or pleasure in doing things: not at all 2. Feeling down, depressed, or hopeless: not at all 3. Trouble falling or staying asleep, or sleeping too much: more than half the days 4. Feeling tired or having little energy: several days 5. Poor appetite or overeating: not at all 6. Feeling bad about yourself - or that you are a failure or have let yourself or your family down: not at all 7. Trouble concentrating on things, such as reading the newspaper or watching television: not at all 8. Moving or speaking so slowly that other people could have noticed. Or the opposite - being so fidgety or restless that you have been moving around a lot more than usual: not at all 9. Thoughts that you would be better off or of hurting yourself in some way: not at all Total score: 3 Depression Screening Interpretation: Negative Depression Screening Done: Yes 47322 - PHQ-9 Billing: Yes Source: Developed by Drs. Sukhjinder Lopez, Bel Hanks, Charlie Choi and colleagues, with an educational solo from [employer]. Thrive Questionnaire Date Thrive assessed: 06/14/24 I am a: Patient What is your living situation today?: I have a steady place to live Within the past 12 months, did the food you bought not last and you didn't have the money to get more?: Never true Within the past 12 months, did you worry whether your food would run out before you got money to buy more?: Never true Do you have trouble paying for medicines?: No Do you have trouble getting transportation to medical appointments?: No Do you have trouble paying your heating and electricity bill?: No Do you have trouble taking care of your child, family member or friend?: No Do you have trouble with day-to-day activities such as bathing, preparing meals, shopping, managing finances, etc.?: No Are you currently unemployed and looking for a job?: No Are you interested in more education?: No Please select the resources that you would like help with: None Currently or been in a relationship where the following occur: No concerns reported THRIVE Score: 0 AUDIT C Alcohol Use Questionnaire (AUDIT-C) 1. How often do you have a drink containing alcohol?: 2-3 times a week 2. How many drinks containing alcohol do you have on a typical day when you are drinking?: 1 or 2 3. How often do you have six or more drinks on one occasion?: Never Total Score: 3 JOSE-7 AMB Questionnaire JOSE-7 Date JOSE - 7 assessed: 06/14/24 Feeling nervous, anxious, or on edge: 0 = Not at all Not being able to stop or control worryin = Not at all Worrying too much about different things: 0 = Not at all Trouble relaxin = Not at all Being so restless that it is hard to sit still: 0 = Not at all Becoming easily annoyed or irritable: 0 = Not at all Feeling afraid as if something awful might happen: 0 = Not at all Total JOSE-7 score (0-4 normal; 5-9 mild; 10-14 moderate; 15-21 severe): 0 Source: Developed by Drs. Sukhjinder Lopez, Bel Hanks, Charlie Choi and colleagues, with an educational solo from [employer]. JOSE-7 Assessment Billing JOSE-7 Assessment Tool: JOSE-7 Assessment 73401 Review of Systems Const All systems reviewed & are unremarkable except as noted in HPI and below ENT Reports no additional complaints GI Reports no additional complaints Reports no additional complaints Musc Reports no additional complaints Physical exam (Primary Care) Vital Signs: Last Vital Signs Temp 97.8 F 06/14/24 12:27 Pulse 87 06/14/24 12:27 Resp 20 06/14/24 12:27 BP 130/70 06/14/24 12:27 Pulse Ox 95 06/14/24 12:27 Oxygen Delivery Method Room Air 06/14/24 12:27 BMI result Body Mass Index 39.3 Tobacco/Smoking Status: Tobacco use Status Tobacco use date assessed 06/14/24 06/14/24 12:32 Patient Tobacco Use Status Never used Tobacco 06/14/24 12:32 e-Cigarette/Vaping Use Never Used 06/14/24 12:32 PHQ-9: PHQ-9 Score PHQ-9: Total score 3 06/14/24 12:32 Depression Screening Interpretation: Negative Thrive Assessment: Date of Thrive Assessment Date Thrive assessed 06/14/24 06/14/24 12:32 Currently or been in a relationship where the following occur: No concerns reported Const General: no acute distress HENMT Face and sinus: Yes normal facial exam Eyes General: appearance normal, both eyes and all related structures Neck Neck: Yes supple Resp Effort & Inspection: normal respiratory effort Auscultation: clear to auscultation bilaterally Cardio Rhythm: regular rhythm Heart sounds: S1 normal heart sound present and S2 normal heart sound present Back/Spine/Pelvis Other: PARASPINAL TENDERNESS IN LOWER SERIAL CALL REGION, DECREASED RANGE OF MOTION OF BOTH SHOULDERS LEFT MORE THAN RIGHT, there is decreased range of motion of both hips and tenderness paraspinal lower lumbar region Immunizations pneumoc 20-patience conj-dip cr(PF) 0.5 mL IM syringe Performing Provider: Hoda Valentine MD Performing Location: [facility] Administered by: CARROL Diamond on 06/14/24 13:06 Dose Route Admin Location Dispensed Lot Number Expiration Date [facility] Band Splitter 0.5 mL IM Left Deltoid 0.5 mL [id number] 04/19/25 [id number] [employer]YETH/PFIZER VIS Given Date VIS Provided VIS Publication Date 06/14/24 Single Vaccine 21 Eligibility Eligibility Date Funding Source Not [facility] Eligible 06/14/24 Private Coding Level of Care Code Est Pt Level 4 (73894) Diagnoses Hip pain, right M25.551 Shoulder pain, left M25.512 Aortic stenosis I35.0 Depression F32.9 Hyperlipidemia E78.5 COPD (chronic obstructive pulmonary disease) J44.9 Additional Codes JOSE-7 Assessment Billing - JOSE-7 Assessment Tool: JOSE-7 Assessment 96819 ([id number]) PHQ-9 - 37470 - PHQ-9 Billing: Yes ([id number]) Assessment & Plan Assessment & Plan (1) Hip pain, right: Code(s): M25.551 - Pain in right hip Category: Medical Plan: Obtain x-ray of the right hip and referred to orthopedic surgeon (2) Shoulder pain, left: Code(s): M25.512 - Pain in left shoulder Category: Medical Plan: Obtain x-ray of left shoulder, check CRP level, gabapentin 300 mg q.h.s. for the 1st week then increase to twice a day will be started follow-up in 3 months (3) Aortic stenosis: Comment: Mild September 2019, mild -mod 10/11,mod 05/2023, moderate 04/2024 follow-up with Cardiology Code(s): I35.0 - Nonrheumatic aortic (valve) stenosis Category: Medical Plan: Monitor with annual echocardiogram (4) Depression: Code(s): F32.9 - Major depressive disorder, single episode, unspecified Category: Medical Plan: Continue sertraline (5) Hyperlipidemia: Code(s): E78.5 - Hyperlipidemia, unspecified Category: Medical Plan: Continue statin (6) COPD (chronic obstructive pulmonary disease): Code(s): J44.9 - Chronic obstructive pulmonary disease, unspecified Category: Medical Plan: Continue inhalers Orders: Orders Erythrocyte Sedimentation Rate Today M25.512 - Pain in left shoulder, M25.551 - Pain in right hip C Reactive Protein Today M25.512 - Pain in left shoulder, M25.551 - Pain in right hip XR hip RT min 2V Today M25.551 - Pain in right hip XR shoulder LT min 2V Today M25.512 - Pain in left shoulder, M25.551 - Pain in right hip Referrals Orthopedics Referral M25.512 - Pain in left shoulder, M25.551 - Pain in right hip Medications: New gabapentin 300 mg PO BID 180 caps 1RF
--- OUTSIDE RECORDS SUMMARY | 2024-06-14 13:07 | XMS_ITS | Clinical Summary ---
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 Name Role Phone Hoda Valentine MD Primary Care Provider [phone] Social History Tobacco Use Types Packs/Day Years Used Date Smoking Tobacco: Never Assessed Comments Unknown Sex and Gender Information Value Date Recorded Sex Assigned at Not on file Legal Sex Female 1:13 PM EST Gender Identity Not on file Sexual Orientation Not on file Plan of Treatment Upcoming Encounters Date Type Department Care Team ([facility] Contact Info) Description 07/25/2024 1:15 PM EDT Appointment [facility] [address] [place] [address] Health Maintenance Due Date Last Done Comments DTaP,Tdap,and Td Vaccines (1 - Tdap) 12/10/1962 Pneumococcal Vaccine: 50+ Ye ars (1 of 1 - PCV) 12/10/1993 Zoster Vaccines (1 of 2) 12/10/1993 RSV Immunization Adult Patie nts (1 - 1-dose 75+ series) 12/10/2018 Depression Screening 01/18/2022 Falls Risk Assessment 01/18/2022 Medicare Annual Wellness Visit 01/18/2022 Osteoporosis Screening (Bone Density Screening) 01/18/2022 Social Influencers of Health Screening 01/18/2022 COVID-19 Vaccine ( - 2023-2 5 season) 2023 Influenza Vaccine (Season Ended) [...] age to complete this topic Meningococcal B Vaccine Aged Out No l onger eligible based on patient's age to complete this topic RSV Immunization Patients Un nika 20 months Aged Out No longer eligible b ased on patient's age to complete this topic Varicella Vaccines Aged Out No longer eligible based on patient's age to complete this topic Insurance [place] - [place] [employer] MEDICARE Member Subscriber Plan / Payer (Ef fective for All Dates) Name:Gayla Jimenez Relation to Subscriber:Self Name:Gayla Jimenez Sr Payer ID:[id number] Group ID:Not on file Type:Not on file Address: [address] [place] [address] Advance Directives Documents on File Type Date Recorded 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
--- OUTSIDE RECORDS SUMMARY | 2024-06-14 13:08 | XMS_ITS | Data Portability ---
Author Organization [place] [facility] [place] Address [address] [facility],[address] [address] Care Team Providers Care Relays Draftsperson Name Role Phone EL ROTHMAN Primary Care [...] zaprine 10 mg tablet 2019 020 rikki [id number], [address] [place], [place], [id number], 0 11:06:05 Patient TargetsNo targets recorded. Patient Instructions Encounter Date Encounter Id Patient Instructions Last Modified By Organization Details Last Modified Time 03/13/2019 [id number] She was advised against bed rest lasting longer than four days and to continue activities as tolerated. [email or web address] Not available 03/13/2019 14:01:49 03/27/2019 [id number] She was advised against bed rest lasting longer than four days and to continue activities as tolerated. [email or web address] Not available 03/27/2019 13:52:16 07/25/2019 [id number] She was advised against bed rest lasting longer than four days and to continue activities as tolerated. [email or web address] Not available 07/25/2019 11:18:09 08/15/2019 [id number] She was advised against bed rest lasting longer than four days and to continue activities as tolerated. [email or web address] Not available 08/15/2019 13:29:57 04/13/2021 [id number] Telehealth visit: The patient was located at [...] XR, knee No observ ation record ed. [facility] [address] [place] [address], [address], 07/25/2019 10:57:32 Result Notes None recorded. Problems Name Problem SNOMED Code Status Onset Date Resolution Date Notes Provider Name and Address Organization Details Recorded Time Spinal stenosis of lumbar region 70955655 Active 2016 Ramon khan MD [address] , [address], [facility] [place], [address], [place] [facility] 7 13:33:09 Lumbosacral radiculitis 71905996 Active 2016 Ramon khan MD [address] , [address], [facility] [place] [address], [place] [facility] 7 13:33:10 Lumbosacral spondylosis without myelopathy 12316414 Active 2016 Ramon khan MD [address] , [address], [facility] [place], [address], [place] [facility] 7 13:33:11 Displacement of lumbar intervertebral disc without myelopathy 61405681 Active 2016 Ramon khan MD [address] , [address], [facility] [place], [address], [place] [facility] 7 13:33:12 Osteoarthritis of knee 205185878 Active Ramon khan MD [address] , [address], [facility] [place] [place], [address], [place] [facility] 8 14:20:03 Problem Notes None recorded. Procedures Surgical History Date Name Laterality Status Provider Name and Address Organization Details Recorded Time 08/15/19 20 Intra-articular Knee Steroid Injection completed Ramon Aquino MD [address] , [address], [place], [address], [place] [facility] 08/15/2019 13:30:09 07/25/19 20 Intra-articular Knee Steroid Injection completed Ramon Aquino MD [address] , [address], [place], [address], [place] [facility] 07/25/2019 11:18:23 03/27/19 20 Intra-articular Knee Steroid Injection completed Ramon Aquino MD [address] , [address], [place], [address], [place] [facility] 03/27/2019 13:52:30 03/13/19 20 Intra-articular Knee Steroid Injection completed Ramon Aquino MD [address] , [address], [place], [address], [place] [facility] 03/13/2019 14:02:01 12/13/19 19 Intra-articular Knee Steroid Injection completed Ramon Aquino MD [address] , [address], [place], [address], [place] [facility] 12/13/2018 09:21:27 11/29/19 19 Intra-articular Knee Steroid Injection completed Ramon Aquino MD [address] , [address], [place], [address], [place] [facility] 11/30/2018 15:09:31 08/23/19 19 Intra-articular Knee Steroid Injection completed Ramon Aquino MD [address] , [address], [place], [address], [place] [facility] 08/22/2018 14:41:48 08/09/19 19 Intra-articular Knee Steroid Injection completed Ramon Aquino MD [address] , [address], [place], [address], [place] [facility] 08/08/2018 13:47:26 05/03/19 19 Intra-articular Knee Steroid Injection completed Ramon Aquino MD [address] , [address], [place], [address], [place] [facility] 05/02/2018 14:19:29 04/18/19 19 Intra-articular Knee Steroid Injection completed Ramon Aquino MD [address] , [address], [place], [address], [place] [facility] 04/18/2018 14:34:57 01/17/20 18 Intra-articular Knee Steroid Injection completed Ramon Aquino MD [address] , [address], [place], [address], [place] [facility] 01/16/2018 13:47:30 01/04/20 18 Intra-articular Knee Steroid Injection completed Ramon Aquino MD [address] , [address], [place], [address], [place] [facility] 01/04/2018 10:08:01 10/12/19 18 Intra-articular Knee Steroid Injection completed Ramon Aquino MD [address] , [address], [place], [address], [place] [facility] 10/11/2017 15:04:53 09/28/19 18 Intra-articular Knee Steroid Injection completed Ramon Aquino MD [address] , [address], [place], [address], [place] [facility] 09/27/2017 14:19:25 08/23/19 18 Lumbar Epidural steroid injection under fluoroscopic guidance completed Ramon Aquino MD [address] , [address], [place], [address], [place] [facility] 08/22/2017 11:42:16 02/14/20 18 Lumbar Epidural steroid injection under fluoroscopic guidance completed Ramon Aquino MD [address] , [address], [place], [address], [place] [facility] 04/05/2017 13:39:16 01/26/20 17 Lumbar Epidural steroid injection under fluoroscopic guidance completed Ramon Aquino MD [address] , [address], [place], [address], [place] [facility] 01/25/2017 13:32:23 Cholecystectomy completed Maddyheaven Perry [place] [facility] 01/09/2017 14:22:01 Arthroscopic Surgery completed Maddy Perry [place] [facility] 01/09/2017 14:22:28 Cataract Surgery completed Maddy Perry [place] [facility] 01/09/2017 14:23:02 total knee replacement completed Ramon Aquino MD [address] , [address], [place], [address], [place] [facility] 04/13/2021 15:49:42 Imaging Results Imaging Date Name Status LastModified by Organiz ation Details LastModified Time 07/18/2019 XR, knee completed [facility] [address] [facility], [place], [address], 07/25/2019 10:57:32 Procedure Notes None recorded. Medical [...] Updated DateTime 0 160.02 cm 41.6 kg/m2 384294. 21 g 83 /min 97 % 97 [...] % 98 % 98 /min 41.6 kg/m2 442711. 21 g 90 mm[Hg] 42 mm[Hg] Ramon khan MD [facility] [address], [facility] [place], [address], [place] [facility] 0 11:05:37 Social History Question Answer Notes LastModified by Organizat ion Details LastModified Time Tobacco Smoking Status Never Smoker Not Available [employer] 12/06/2019 03:16:11 What Is Your Level Of Alcohol Consumption? Moderate [id number] Information not available 12/06/2019 Are You Currently Employed? No [id number] Information not available 12/06/2019 Which Illicit Or Recreational Drugs Have You Used? 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 08/22/2018 [id number] Information not available 12/06/2019 Sex: Unknown Functional [...] Response Arthritis Y Depression Y Asthma Y GERD/Reflux Y High Cholesterol Y Gynecological HistoryNo gynecological history recorded. Obstetrics History GPAL:G 0 P 0 0 0 0 Past Encounters Encounter ID Performer Location Encounter Start Date Encounter Closed Date Diagnosis/Indication Diagnosis SNOMED-CT Code Diagnosis ICD10 Code Diagnosis Note [id number] Ramon Aquino MD [facility] [address] [place] [address] 01/09/2017 14:01:45 01/09/2017 15:28:23 Spinal stenosis of lumbar region 20040679 M48.062 Lumbosacra l radiculitis 33399139 M54.17 Lumbosacra l spondylosis without myelopathy 37075453 M47.817 Displaceme nt of lumbar intervertebral disc without myelopathy 89056999 M51.26 [id number] Ramon Aquino MD [facility] [address] [place] [address] 01/25/2017 11:48:05 01/25/2017 15:32:18 Spinal stenosis of lumbar region 32670880 M48.062 Lumbosacra l radiculitis 10499132 M54.17 Lumbosacra l spondylosis without myelopathy 70872675 M47.817 Displaceme nt of lumbar intervertebral disc without myelopathy 81156749 M51.26 [id number] Ramon Aquino MD PAIN OFFICE [address] [place] [address] 02/27/2017 12:53:03 02/27/2017 14:38:36 Spinal stenosis of lumbar region 15179846 M48.062 Lumbosacra l radiculitis 20153623 M54.17 Lumbosacra l spondylosis without myelopathy 04460322 M47.817 Displaceme nt of lumbar intervertebral disc without myelopathy 13836607 M51.26 [id number] Ramon Aquino MD [facility] [address] [place] [address] 04/05/2017 10:11:11 04/05/2017 13:45:56 Spinal stenosis of lumbar region 89825050 M48.062 Lumbosacra l radiculitis 80005543 M54.17 Lumbosacra l spondylosis without myelopathy 64085199 M47.817 Displaceme nt of lumbar intervertebral disc without myelopathy 62236146 M51.26 [id number] Ramon Aquino MD [facility] [address] [place] [address] 05/11/2017 13:29:35 05/11/2017 15:25:20 Spinal stenosis of lumbar region 88304397 M48.062 Lumbosacra l radiculitis 29649738 M54.17 Lumbosacra l spondylosis without myelopathy 07145916 M47.817 Displaceme nt of lumbar intervertebral disc without myelopathy 58654395 M51.26 [id number] Ramon Aquino MD PAIN OFFICE [address] [place] [address] 07/03/2017 13:19:17 07/14/2017 08:55:46 Spinal stenosis of lumbar region 73480315 M48.062 Lumbosacra l radiculitis 17847931 M54.17 Lumbosacra l spondylosis without myelopathy 96425611 M47.817 Displaceme nt of lumbar intervertebral disc without myelopathy 90191931 M51.26 [id number] Ramon Aquino MD PAIN OFFICE [address] [place] [address] 08/22/2017 10:51:32 08/22/2017 11:49:32 Spinal stenosis of lumbar region 61528019 M48.062 Lumbosacra l radiculitis 83364296 M54.17 Lumbosacra l spondylosis without myelopathy 61401618 M47.817 Displaceme nt of lumbar intervertebral disc without myelopathy 12073534 M51.26 [id number] Ramon Aquino MD PAIN OFFICE [address] [place] [address] 09/27/2017 11:27:58 09/27/2017 14:47:38 Osteoarthritis of knee 677154432 M17.0 Spinal ha nosis of lumbar region 52453266 M48.062 Lumbosacra l radiculitis 45059506 M54.17 Lumbosacra l spondylosis without myelopathy 16289308 M47.817 Displaceme nt of lumbar intervertebral disc without myelopathy 77197809 M51.26 [id number] Ramon Aquino MD PAIN OFFICE [address] [place] [address] 10/11/2017 11:26:34 10/11/2017 15:09:43 Lumbosacral radiculitis 06391563 M54.17 Osteoarthr itis of knee 332518082 M17.0 Spinal ha nosis of lumbar region 35109836 M48.062 Lumbosacra l spondylosis without myelopathy 20790382 M47.817 Displaceme nt of lumbar intervertebral disc without myelopathy 63977758 M51.26 [id number] Ramon Aquino MD [facility] [address] [place] [address] 12/12/2017 11:31:19 01/02/2018 15:18:40 Osteoarthritis of knee 071355187 M17.0 Spinal ha nosis of lumbar region 86531615 M48.062 Lumbosacra l radiculitis 62805805 M54.17 Lumbosacra l spondylosis without myelopathy 51906830 M47.817 Displaceme nt of lumbar intervertebral disc without myelopathy 51442927 M51.26 [id number] Ramon Aquino MD PAIN OFFICE [address] [place] [address] 01/03/2018 14:23:47 01/04/2018 10:10:46 Osteoarthritis of knee 910907786 M17.0 Spinal ha nosis of lumbar region 12823772 M48.062 Lumbosacra l radiculitis 29221012 M54.17 Lumbosacra l spondylosis without myelopathy 12093126 M47.817 Displaceme nt of lumbar intervertebral disc without myelopathy 35066172 M51.26 [id number] Ramon Aquino MD [facility] [address] [place] [address] 01/16/2018 13:04:29 01/16/2018 13:49:28 Lumbosacral radiculitis 51057173 M54.17 Osteoarthr itis of knee 252401018 M17.0 Spinal ha nosis of lumbar region 75851072 M48.062 Lumbosacra l spondylosis without myelopathy 29470024 M47.817 Displaceme nt of lumbar intervertebral disc without myelopathy 07368070 M51.26 [id number] Ramon Aquino MD [facility] [address] [place] [address] 04/18/2018 13:04:05 04/18/2018 14:38:28 Osteoarthritis of knee 381197908 M17.0 Spinal ha nosis of lumbar region 86817572 M48.062 Lumbosacra l radiculitis 74610112 M54.17 Lumbosacra l spondylosis without myelopathy 65765939 M47.817 Displaceme nt of lumbar intervertebral disc without myelopathy 98039604 M51.26 [id number] Ramon Aquino MD [facility] [address] [place] [address] 05/02/2018 13:18:56 05/02/2018 14:22:08 Lumbosacral radiculitis 43037626 M54.17 Osteoarthr itis of knee 116672703 M17.0 Spinal ha nosis of lumbar region 21238178 M48.062 Lumbosacra l spondylosis without myelopathy 62752040 M47.817 Displaceme nt of lumbar intervertebral disc without myelopathy 22266711 M51.26 [id number] Ramon Aquino MD [facility] [address] [place] [address] 08/08/2018 13:07:47 08/08/2018 13:52:31 Osteoarthritis of knee 953980778 M17.0 Spinal ha nosis of lumbar region 25551143 M48.062 Lumbosacra l radiculitis 67558823 M54.17 Lumbosacra l spondylosis without myelopathy 29774804 M47.817 Displaceme nt of lumbar intervertebral disc without myelopathy 60279685 M51.26 [id number] Ramon Aquino MD [facility] [address] [place] [address] 08/22/2018 13:44:14 08/22/2018 14:44:06 Lumbosacral radiculitis 36110129 M54.17 Osteoarthr itis of knee 979172355 M17.0 Spinal ha nosis of lumbar region 32493289 M48.062 Lumbosacra l spondylosis without myelopathy 82926317 M47.817 Displaceme nt of lumbar intervertebral disc without myelopathy 12279133 M51.26 [id number] Ramon Aquino MD PAIN OFFICE [address] [place] [address] 11/28/2018 15:07:37 11/30/2018 15:11:20 Osteoarthritis of knee 380099303 M17.0 Spinal ha nosis of lumbar region 16669362 M48.062 Lumbosacra l radiculitis 19768918 M54.17 Lumbosacra l spondylosis without myelopathy 11105928 M47.817 Displaceme nt of lumbar intervertebral disc without myelopathy 78910283 M51.26 [id number] Ramon Aquino MD PAIN OFFICE [address] [place] [address] 12/12/2018 15:26:51 12/13/2018 09:57:44 Lumbosacral radiculitis 36414184 M54.17 Osteoarthr itis of knee 583934889 M17.0 Spinal ha nosis of lumbar region 69448094 M48.062 Lumbosacra l spondylosis without myelopathy 79847377 M47.817 Displaceme nt of lumbar intervertebral disc without myelopathy 50302433 M51.26 [id number] Ramon Aquino MD PAIN OFFICE [address] [place] [address] 03/13/2019 13:41:19 03/13/2019 14:04:27 Osteoarthritis of knee 450010670 M17.0 Spinal ha nosis of lumbar region 24869934 M48.062 Lumbosacra l radiculitis 09845394 M54.17 Lumbosacra l spondylosis without myelopathy 37205176 M47.817 Displaceme nt of lumbar intervertebral disc without myelopathy 00643400 M51.26 [id number] Ramon Aquino MD PAIN OFFICE [address] [place] [address] 03/27/2019 13:02:41 03/27/2019 13:54:11 Lumbosacral radiculitis 02875567 M54.17 Osteoarthr itis of knee 791154551 M17.0 Spinal ha nosis of lumbar region 36831132 M48.062 Lumbosacra l spondylosis without myelopathy 23053002 M47.817 Displaceme nt of lumbar intervertebral disc without myelopathy 20656587 M51.26 [id number] Ramon Aquino MD PAIN OFFICE [address] [place] [address] 07/25/2019 10:49:41 07/25/2019 11:20:21 Osteoarthritis of knee 401274068 M17.0 Spinal ha nosis of lumbar region 70792345 M48.062 Lumbosacra l radiculitis 12660965 M54.17 Lumbosacra l spondylosis without myelopathy 96995483 M47.817 Displaceme nt of lumbar intervertebral disc without myelopathy 87338606 M51.26 [id number] Ramon Aquino MD PAIN OFFICE [address] [place] [address] 08/15/2019 11:01:12 08/15/2019 13:42:11 Lumbosacral radiculitis 60470982 M54.17 Osteoarthr itis of knee 486176590 M17.0 Spinal ha nosis of lumbar region 86024572 M48.062 Lumbosacra l spondylosis without myelopathy 85545882 M47.817 Displaceme nt of lumbar intervertebral disc without myelopathy 38436519 M51.26 [id number] Ramon Aquino MD PAIN OFFICE [address] [place] [address] 04/13/2021 15:45:02 04/14/2021 08:58:24 Lumbosacral radiculitis 49323273 M54.17 Osteoarthr itis of knee 492052155 M17.0 Spinal ha nosis of lumbar region 78342188 M48.062 Lumbosacra l spondylosis without myelopathy 04459283 M47.817 Displaceme nt of lumbar intervertebral disc without myelopathy 09195259 M51.26 Health Concerns Section Related Observation LastModified by Organization Detai ls LastModified Time None Recorded Concern Status LastModified by Organization Details LastModified Time None Recorded Advance Directives Directive None Recorded Payers Encounter Date Sequence Insurance Name Policy Number Policy Tavarez Covered Member ID Tavarez Member ID Guarantor Name 03/13/2019 1 [facility] - COMMUNITY PLAN - DUAL COMPLETE - SNP PLAN (MEDICARE REPLACEMENT HMO) [employer] Gayla E Tony [id number] Gayla Tony 03/27/2019 1 [facility] - COMMUNITY PLAN - DUAL COMPLETE - SNP PLAN (MEDICARE REPLACEMENT HMO) [employer] Gayla E Tony [id number] Gayla Tony 07/25/2019 1 [facility] - COMMUNITY PLAN - DUAL COMPLETE - SNP PLAN (MEDICARE REPLACEMENT HMO) [employer] Gayla E Tony [id number] Gayla Tony 08/15/2019 1 [facility] - COMMUNITY PLAN - DUAL COMPLETE - SNP PLAN (MEDICARE REPLACEMENT HMO) [employer] Gayla E Tony [id number] Gayla Tony 04/13/2021 1 [facility] - COMMUNITY PLAN - DUAL COMPLETE - SNP PLAN (MEDICARE REPLACEMENT HMO) [employer] Gayla E Tony [id number] Gayla Tony Notes Date Note Type Note Provider Name and Address Organization Details Recorded Time 03/13/2019 text/html She is here for a left knee steroid injection under ultrasound guidance. X-ray of both knees shows marked medial femorotibial joint space narrowing due to osteoarthritis. Ramon Aquino MD [address] [facility] , [address] [facility], [place], [address], [place] [facility] 03/14/2019 10:22:52 03/27/2019 text/html She is here for a right knee steroid injection under ultrasound guidance Ramon Aquino MD [address] [facility] , [address], [place], [address], [place] [facility] 03/27/2019 14:15:44 07/25/2019 text/html She is here for a left knee steroid injection under ultrasound guidance. X-ray of both knees shows marked medial femorotibial joint space narrowing due to osteoarthritis. Ramon Aquino MD [address] [facility] , [address], [place], [address], [place] [facility] 07/25/2019 14:13:36 08/15/2019 text/html She is here for a right knee steroid injection under ultrasound guidance Ramon Aquino MD [address] [facility] [address], [place], [address], [facility] 08/16/2019 08:57:28 04/13/2021 text/html [...] and feels better. Ramon Aquino MD [address] [facility] [address], [place], [address], [facility] 04/14/2021 09:18:33 OBGyn Episode No OBEpisode recorded.
== END 2024-06-14 13:06 | disposition home or self-care (01) ==
LOC: HO.HMCC 12:26
PROVIDERS: PCP Internal Medicine; Visit Provider Internal Medicine
DX: M25.551 Pain in right hip (principal); J44.9 Chronic obstructive pulmonary disease, unspecified; M25.512 Pain in left shoulder; I35.0 Nonrheumatic aortic (valve) stenosis; F32.9 Major depressive disorder, single episode, unspecified; E78.5 Hyperlipidemia, unspecified; Z23 Encounter for immunization

== ENCOUNTER → 2024-06-14 12:26 | Outpatient (BNVA) | payer OTHER, SELFPAY | PROVIDERS: PCP Internal Medicine; Visit Provider Internal Medicine | DX: M54.2 Cervicalgia (principal); M25.512 Pain in left shoulder; M25.551 Pain in right hip; M25.511 Pain in right shoulder; E78.5 Hyperlipidemia, unspecified; J44.9 Chronic obstructive pulmonary disease, unspecified; I35.0 Nonrheumatic aortic (valve) stenosis; F32.9 Major depressive disorder, single episode, unspecified; Z23 Encounter for immunization; Z79.899 Other long term (current) drug therapy | CPT/HCPCS: 90471; 90677; 96127; 99212 ==

== ENCOUNTER 2024-07-02 14:45 | Outpatient (AMB) | payer OTHER, SELFPAY ==
[2024-07-02 14:51] VITALS: BP 120/80; PULSE 73; TEMP 36.8; O2SAT 96; BMI 39.3
--- NOTE | 2024-07-02 14:51 | AM.OFFWIN_ITS ---
Intake Vital Signs 07/02/24 14:51 Height 5 ft 3 in Weight 222 lb BMI 39.3 BP 120/80 Blood Pressure Location Rt brachial Position Sitting Pulse 73 Pulse Source Pulse Oximeter Temp 98.2 F Temp Source Oral Pulse Oximetry (%) 96 Oxygen Delivery Method Room Air Intake Visit Reasons: EP ? sinus infection, cough, stuffy nose Patient Tobacco Use Status: Never used Tobacco Allergies N.K.D.A. Allergy (Unknown, Uncoded 07/02/24 14:51) unknown Do you need a note to return to daycare/school/sports/work: No HPI HPI Comments History of Present Illness Details History - The patient is an 78-year-old female p resenting with respiratory symptoms including deep coughing and wheezing. - Symptoms began 3 days ago, characteriz ed by episodes of deep coughing, a stuffy head, and production of mucus; no improvement noted. - The patient has a documented history o f asthma and COPD; using three inhalers as directed and increased utilization of the albuterol inhaler was noted in recent days. - Wheezing is audible to the patient and exacerbated during the night when laying down. - The patient denies fever, sinus pain, ear pain or upper respiratory sinus symptoms but reports a stuffy head. - The patient has no history of seasonal allergies. - Concurrently, the patient is dealing w [facility] for lower back pain, right hip pain, and has discomfort in the shoulder. Physical Exam General: Cooperative, healthy appearing, comfortable and no acute distress Orientation/consciousness: Patient oriented x3 Limitations: No limitations Head: Normal to inspection Ears: Hearing grossly normal bilaterally, external ears normal and TM's normal bilaterally Nose: Normal external nose present, Normal nares present and No nasal discharge present Face and sinus: Normal facial exam and Yes sinuses nontender Mouth: Normal oral and palatal mucosa present and moist mucous membranes Throat: Yes tonsils normal, Yes uvula midline. Posterior oropharynx erythema and cobblestoning present Eyes: Appearance normal, both eyes and all related structures Neck: Normal visual inspection Respiratory: slight expiratory wheeze. Normal respiratory effort, able to speak in complete sentences, Actively coughing, no respiratory distress, not tachypneic, no tripod positioning and no use of accessory muscles Cardiovascular: Regular rate and rhythm. Normal S1 and S2 Skin: No rashes or lesions noted Neuro: Patient oriented x3 Extremities: Normal to inspection and Yes no clubbing, cyanosis or edema PFSH Medical History (Updated 07/02/24 @ 15:32 by Sima Crowe PA-C) Hyperkalemia Aortic stenosis Annual physical exam Iron deficiency Hyperglycemia Depression Pain of left thumb Pneumonia Sinusitis, acute History of PFTs History of mammogram Osteoarthritis Hyperlipidemia Asthma Surgical History Hx of cardiac cath Family History Father No problems noted. Mother No problems noted. Social History Housing: House Patient Tobacco Use Status: Never used Tobacco e-Cigarette/Vaping Use: Never Used service: No Current occupational status: retired Cognitive needs: No Hearing needs: No Vision needs: Yes Review of Systems Const All systems reviewed & are unremarkable except as noted in HPI and below Physical Exam Vital Signs: Last Vital Signs Temp 98.2 F 07/02/24 14:51 Pulse 73 07/02/24 14:51 BP 120/80 07/02/24 14:51 Pulse Ox 96 07/02/24 14:51 Oxygen Delivery Method Room Air 07/02/24 14:51 BMI result Body Mass Index 39.3 Assessment & Plan Assessment & Plan (1) Lower respiratory infection (e.g., bronchitis, pneumonia, pneumonitis, pulmonitis): Code(s): J22 - Unspecified acute lower respiratory infection Plan: The patient is being treated for an exacerbation of asthma and COPD through the initiation of a Z-Quinn for anti-inflammatory benefits and potential bacterial cov erage, alongside benzonatate for nighttime cough suppression to improve sleep quality. Prednisone is to be commenced the following morning to aid in the reduction of respiratory inflammation and ease breathing. All medication prescriptions will be directed to her nominated pharmacy. She is advised to continue using her prescribed inhalers, including her rescue inhaler; no interactions were anticipated between her current regimen and the new prescriptions. Patient was informed and verbally consented to the use of an ambient scribe for clinic note documentation during this visit Medications: New benzonatate 200 mg PO BEDTIME PRN 10 caps 0RF cough azithromycin For 250 mg dose pack: take 500 mg today (day 1), then 250 mg for 4 days (days 2-5) PO 6 tabs 0RF prednisone 40 mg (2 x 20 mg) PO QAM 10 tabs 0RF Coding Level of Care Code Est Pt Level 4 (83636) Diagnoses Lower respiratory infection (e.g., bronchitis, pneumonia, pneumonitis, pulmoni tis) J22
--- OUTSIDE RECORDS SUMMARY | 2024-07-02 15:50 | XMS_ITS | Clinical Summary ---
Author Organization [facility] Address [address] [place] [address] Phone Care Team Providers Care Pig Sticker Name Role Phone Hoda Valentine MD Primary Care Provider [phone] Social History Tobacco Use Types Packs/Day Years Used Date Smoking Tobacco: Never Assessed Comments Unknown Sex and Gender Information Value Date Recorded Sex Assigned at Not on file Legal Sex Female 1:13 PM EST Gender Identity Not on file Sexual Orientation Not on file Plan of Treatment Upcoming Encounters Date Type Department Care Team (Late st Contact Info) Description 07/25/2024 1:15 PM EDT Appointment [facility] [address] [address] Health Maintenance Due Date Last Done [...] ID:Not on file Type:Not on file Address: [address] [place] [address] Advance Directives Documents on File Type Date Recorded Patient Manager Account Management Expl anation Health Care Decision (hx) 04/25/2014 [...] (hx) 04/25/2014 AD VILA DIRECTIVE Care Teams Pig Sticker Relationship Specialty Start Date End Date Hoda Valentine MD PCP - General Oral And Maxillofacial Surgery 11/13/19
--- OUTSIDE RECORDS SUMMARY | 2024-07-02 15:51 | XMS_ITS | Data Portability ---
Author Organization [place] [facility], [place] OFF[facility] Address [address] [facility],[address] [address] Care Team Providers Care Industrial Relations Manager Name Role Phone EL ROTHMAN Primary [...] zaprine 10 mg tablet 2019 020 rikki [id number], [address], [place], [id number], 0 11:06:05 Patient TargetsNo targets recorded. Patient Instructions Encounter Date Encounter Id Patient Instructions Last Modified By Organization Details Last Modified Time 03/13/2019 [id number] She was advised against bed rest lasting longer than four days and to continue activities as tolerated. [email or web address] Not available 03/13/2019 14:01:49 03/27/2019 [id number] She was advised against bed rest lasting longer than four days and to continue activities as tolerated. [email or web address] Not available 03/27/2019 13:52:16 07/25/2019 [id number] She was advised against bed rest lasting longer than four days and to continue activities as tolerated. [email or web address] Not available 07/25/2019 11:18:09 08/15/2019 [id number] She was advised against bed rest lasting longer than four days and to continue activities as tolerated. [email or web address] Not available 08/15/2019 13:29:57 04/13/2021 [id number] Telehealth visit: The patient was located at [...] XR, knee No observ ation record ed. [facility] Dept [address] [place] [address], [address], 07/25/2019 10:57:32 Result Notes None recorded. Problems Name Problem SNOMED Code Status Onset Date Resolution Date Notes Provider Name and Address Organization Details Recorded Time Spinal stenosis of lumbar region 93862448 Active 2016 Ramon khan MD [address] , [address], [place], [address], [place] [facility] 7 13:33:09 Lumbosacral radiculitis 28624380 Active 2016 Ramon khan MD [address] , [address], [place] [place], [address], [place] [facility] 7 13:33:10 Lumbosacral spondylosis without myelopathy 40752416 Active 2016 Ramon khan MD [address] , [address], [place], [address], [place] [facility] 7 13:33:11 Displacement of lumbar intervertebral disc without myelopathy 69654706 Active 2016 Ramon khan MD [address] , [address], [facility] [place], [address], [place] [facility] 7 13:33:12 Osteoarthritis of knee 002639259 Active Ramon khan MD [address] , [address], [facility] [place], [address], [place] [facility] 8 14:20:03 Problem Notes None recorded. Procedures Surgical History Date Name Laterality Status Provider Name and Address Organization Details Recorded Time 08/15/19 20 Intra-articular Knee Steroid Injection completed Ramon Aquino MD [address] , [address], [place], [address], [place] [facility] 08/15/2019 13:30:09 07/25/19 20 Intra-articular Knee Steroid Injection completed Ramon Aquino MD [address] , [address], [place], [address], [place] [facility] 07/25/2019 11:18:23 03/27/19 20 Intra-articular Knee Steroid Injection completed Ramon Aquino MD [address] , [address], [place], [address], [place] [facility] 03/27/2019 13:52:30 03/13/19 20 Intra-articular Knee Steroid Injection completed Ramon Aquino MD [address] , [address], [place], [address], [place] [facility] 03/13/2019 14:02:01 12/13/19 19 Intra-articular Knee Steroid Injection completed Ramon Aquino MD [address] , [address], [place], [address], [place] [facility] 12/13/2018 09:21:27 11/29/19 19 Intra-articular Knee Steroid Injection completed Ramon Aquino MD [address] , [address], [place], [address], [place] [facility] 11/30/2018 15:09:31 08/23/19 19 Intra-articular Knee Steroid Injection completed Ramon Aquino MD [address] , [address], [place], [address], [place] [facility] 08/22/2018 14:41:48 08/09/19 19 Intra-articular Knee Steroid Injection completed Ramon Aquino MD [address] , [address], [place], [address], [place] [facility] 08/08/2018 13:47:26 05/03/19 19 Intra-articular Knee Steroid Injection completed Ramon Aquino MD [address] , [address], [place], [address], [place] [facility] 05/02/2018 14:19:29 04/18/19 19 Intra-articular Knee Steroid Injection completed Ramon Aquino MD [address] , [address], [place], [address], [place] [facility] 04/18/2018 14:34:57 01/17/20 18 Intra-articular Knee Steroid Injection completed Ramon Aquino MD [address] , [address], [place], [address], [place] [facility] 01/16/2018 13:47:30 01/04/20 18 Intra-articular Knee Steroid Injection completed Ramon Aquino MD [address] , [address], [place], [address], [place] [facility] 01/04/2018 10:08:01 10/12/19 18 Intra-articular Knee Steroid Injection completed Ramon Aquino MD [address] , [address], [place], [address], [place] [facility] 10/11/2017 15:04:53 09/28/19 18 Intra-articular Knee Steroid Injection completed Ramon Aquino MD [address] , [address], [place], [address], [place] [facility] 09/27/2017 14:19:25 08/23/19 18 Lumbar Epidural steroid injection under fluoroscopic guidance completed Ramon Aquino MD [address] , [address], [place], [address], [place] [facility] 08/22/2017 11:42:16 02/14/20 18 Lumbar Epidural steroid injection under fluoroscopic guidance completed Ramon Aquino MD [address] , [address], [place], [address], [place] [facility] 04/05/2017 13:39:16 01/26/20 17 Lumbar Epidural steroid injection under fluoroscopic guidance completed Ramon Aquino MD [address] , [address], [place], [address], [place] [facility] 01/25/2017 13:32:23 Cholecystectomy completed Maddyheaven Perry [place] [facility] 01/09/2017 14:22:01 Arthroscopic Surgery completed Maddy Perry [place] [facility] 01/09/2017 14:22:28 Cataract Surgery completed Maddy Perry [place] [facility] 01/09/2017 14:23:02 total knee replacement completed Ramon Aquino MD [address] , [address], [place], [address], [place] [facility] 04/13/2021 15:49:42 Imaging Results Imaging Date Name Status LastModified by Organiz ation Details LastModified Time 07/18/2019 XR, knee completed [facility] [address] [facility], [place], [address], 07/25/2019 10:57:32 Procedure Notes None recorded. Medical [...] Updated DateTime 0 160.02 cm 41.6 kg/m2 832567. 21 g 83 /min 97 % 97 [...] % 98 % 98 /min 41.6 kg/m2 111760. 21 g 90 mm[Hg] 42 mm[Hg] Ramon khan MD [facility] [address], [facility] [place], [address], [place] [facility] 0 11:05:37 Social History Question Answer Notes LastModified by [employer] Details LastModified Time Tobacco Smoking Status Never Smoker Not Available [employer] 12/06/2019 03:16:11 Which Illicit Or Recreational Drugs Have You Used? No [id number] Information not available 12/06/2019 Education Post Graduate Masters [email or web address] Information not available 01/09/2017 Marital Status Single [email or web address] Informatio n not available 01/09/2017 What Was The Date Of Your Most Recent Tobacco Screening? 08/22/2018 [id number] Information not available 12/06/2019 Sex: Unknown Functional Status Question Answer Note LastModified by [employer] Details LastModified Time What is your level of alcohol consumption? Moderate [id number] Information not available 12/06/2019 Are you currently employed? 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 Family History Relationship [...] SNOMED-CT Code Diagnosis ICD10 Code Diagnosis Note [id number] Ramon Aquino MD PAIN OFFICE [address] [place] [address] 01/09/2017 14:01:45 01/09/2017 15:28:23 Spinal stenosis of lumbar region 06017291 M48.062 Lumbosacra l radiculitis 20961572 M54.17 Lumbosacra l spondylosis without myelopathy 65619041 M47.817 Displaceme nt of lumbar intervertebral disc without myelopathy 64990208 M51.26 58174 Ramon Aquino MD PAIN OFFICE [address] [place] [address] 01/25/2017 11:48:05 01/25/2017 15:32:18 Spinal stenosis of lumbar region 52001156 M48.062 Lumbosacra l radiculitis 03965409 M54.17 Lumbosacra l spondylosis without myelopathy 57554586 M47.817 Displaceme nt of lumbar intervertebral disc without myelopathy 64200541 M51.26 97270 Ramon Aquino MD PAIN OFFICE [address] [place] [address] 02/27/2017 12:53:03 02/27/2017 14:38:36 Spinal stenosis of lumbar region 11179063 M48.062 Lumbosacra l radiculitis 28001392 M54.17 Lumbosacra l spondylosis without myelopathy 16102862 M47.817 Displaceme nt of lumbar intervertebral disc without myelopathy 42057013 M51.26 88679 Ramon Aquino MD PAIN OFFICE [address] [place] [address] 04/05/2017 10:11:11 04/05/2017 13:45:56 Spinal stenosis of lumbar region 26273701 M48.062 Lumbosacra l radiculitis 31486720 M54.17 Lumbosacra l spondylosis without myelopathy 01334613 M47.817 Displaceme nt of lumbar intervertebral disc without myelopathy 82865241 M51.26 04018 Ramon Aquino MD [facility] [address] [place] [address] 05/11/2017 13:29:35 05/11/2017 15:25:20 Spinal stenosis of lumbar region 08400474 M48.062 Lumbosacra l radiculitis 64946356 M54.17 Lumbosacra l spondylosis without myelopathy 97072850 M47.817 Displaceme nt of lumbar intervertebral disc without myelopathy 01739105 M51.26 74094 Ramon Aquino MD PAIN OFFICE [address] [place] [address] 07/03/2017 13:19:17 07/14/2017 08:55:46 Spinal stenosis of lumbar region 78707691 M48.062 Lumbosacra l radiculitis 45337691 M54.17 Lumbosacra l spondylosis without myelopathy 68459632 M47.817 Displaceme nt of lumbar intervertebral disc without myelopathy 56935681 M51.26 42528 Ramon Aquino MD PAIN OFFICE [address] [place] [address] 08/22/2017 10:51:32 08/22/2017 11:49:32 Spinal stenosis of lumbar region 56172110 M48.062 Lumbosacra l radiculitis 61585124 M54.17 Lumbosacra l spondylosis without myelopathy 95514757 M47.817 Displaceme nt of lumbar intervertebral disc without myelopathy 10569572 M51.26 01605 Ramon Aquino MD PAIN OFFICE [address] [place] [address] 09/27/2017 11:27:58 09/27/2017 14:47:38 Osteoarthritis of knee 469945523 M17.0 Spinal ha nosis of lumbar region 24414609 M48.062 Lumbosacra l radiculitis 78811324 M54.17 Lumbosacra l spondylosis without myelopathy 39049226 M47.817 Displaceme nt of lumbar intervertebral disc without myelopathy 60880225 M51.26 53942 Ramon Aquino MD [facility] [address] [place] [address] 10/11/2017 11:26:34 10/11/2017 15:09:43 Lumbosacral radiculitis 63725565 M54.17 Osteoarthr itis of knee 273669516 M17.0 Spinal ha nosis of lumbar region 65318539 M48.062 Lumbosacra l spondylosis without myelopathy 23593472 M47.817 Displaceme nt of lumbar intervertebral disc without myelopathy 33387422 M51.26 34691 Ramon Aquino MD [facility] PA[facility] [address] [place] [address] 12/12/2017 11:31:19 01/02/2018 15:18:40 Osteoarthritis of knee 699630382 M17.0 Spinal ha nosis of lumbar region 58174203 M48.062 Lumbosacra l radiculitis 48106663 M54.17 Lumbosacra l spondylosis without myelopathy 68480551 M47.817 Displaceme nt of lumbar intervertebral disc without myelopathy 14871136 M51.26 54480 Ramon Aquino MD [facility] PA[facility] [address] [place] [address] 01/03/2018 14:23:47 01/04/2018 10:10:46 Osteoarthritis of knee 344355103 M17.0 Spinal ha nosis of lumbar region 44818087 M48.062 Lumbosacra l radiculitis 85297712 M54.17 Lumbosacra l spondylosis without myelopathy 52207161 M47.817 Displaceme nt of lumbar intervertebral disc without myelopathy 68138502 M51.26 10348 Ramon Aquino MD [facility] PA[facility] [address] [place] [address] 01/16/2018 13:04:29 01/16/2018 13:49:28 Lumbosacral radiculitis 53576646 M54.17 Osteoarthr itis of knee 982666374 M17.0 Spinal ha nosis of lumbar region 16667312 M48.062 Lumbosacra l spondylosis without myelopathy 72192674 M47.817 Displaceme nt of lumbar intervertebral disc without myelopathy 98103052 M51.26 94194 Ramon Aquino MD [facility] PA[facility] [address] [place] [address] 04/18/2018 13:04:05 04/18/2018 14:38:28 Osteoarthritis of knee 334697394 M17.0 Spinal ha nosis of lumbar region 98575057 M48.062 Lumbosacra l radiculitis 70198601 M54.17 Lumbosacra l spondylosis without myelopathy 10291009 M47.817 Displaceme nt of lumbar intervertebral disc without myelopathy 64880885 M51.26 62842 Ramon Aquino MD PAIN OFFICE [address] [place] [address] 05/02/2018 13:18:56 05/02/2018 14:22:08 Lumbosacral radiculitis 70846015 M54.17 Osteoarthr itis of knee 098371488 M17.0 Spinal ha nosis of lumbar region 79284711 M48.062 Lumbosacra l spondylosis without myelopathy 47394323 M47.817 Displaceme nt of lumbar intervertebral disc without myelopathy 82067915 M51.26 64691 Ramon Aquino MD PAIN OFFICE [address] [place] [address] 08/08/2018 13:07:47 08/08/2018 13:52:31 Osteoarthritis of knee 131198117 M17.0 Spinal ha nosis of lumbar region 32933022 M48.062 Lumbosacra l radiculitis 63703082 M54.17 Lumbosacra l spondylosis without myelopathy 95781147 M47.817 Displaceme nt of lumbar intervertebral disc without myelopathy 33657089 M51.26 07088 Ramon Aquino MD PAIN OFFICE [address] [place] [address] 08/22/2018 13:44:14 08/22/2018 14:44:06 Lumbosacral radiculitis 92395347 M54.17 Osteoarthr itis of knee 821578143 M17.0 Spinal ha nosis of lumbar region 42316980 M48.062 Lumbosacra l spondylosis without myelopathy 53972513 M47.817 Displaceme nt of lumbar intervertebral disc without myelopathy 78817012 M51.26 83309 Ramon Aquino MD PAIN OFFICE [address] [place] [address] 11/28/2018 15:07:37 11/30/2018 15:11:20 Osteoarthritis of knee 117079769 M17.0 Spinal ha nosis of lumbar region 26704604 M48.062 Lumbosacra l radiculitis 59530300 M54.17 Lumbosacra l spondylosis without myelopathy 95819156 M47.817 Displaceme nt of lumbar intervertebral disc without myelopathy 92938964 M51.26 01711 Ramon Aquino MD PAIN OFFICE [address] [place] [address] 12/12/2018 15:26:51 12/13/2018 09:57:44 Lumbosacral radiculitis 07603771 M54.17 Osteoarthr itis of knee 640187075 M17.0 Spinal ha nosis of lumbar region 52666282 M48.062 Lumbosacra l spondylosis without myelopathy 18889657 M47.817 Displaceme nt of lumbar intervertebral disc without myelopathy 20379459 M51.26 84778 Ramon Aquino MD PAIN OFFICE [address] [place] [address] 03/13/2019 13:41:19 03/13/2019 14:04:27 Osteoarthritis of knee 195460197 M17.0 Spinal ha nosis of lumbar region 44481384 M48.062 Lumbosacra l radiculitis 67338998 M54.17 Lumbosacra l spondylosis without myelopathy 18968270 M47.817 Displaceme nt of lumbar intervertebral disc without myelopathy 80338589 M51.26 41967 Ramon Aquino MD PAIN OFFICE [address] [place] [address] 03/27/2019 13:02:41 03/27/2019 13:54:11 Lumbosacral radiculitis 80790461 M54.17 Osteoarthr itis of knee 820435675 M17.0 Spinal ha nosis of lumbar region 14150936 M48.062 Lumbosacra l spondylosis without myelopathy 70493238 M47.817 Displaceme nt of lumbar intervertebral disc without myelopathy 60196349 M51.26 90956 Ramon Aquino MD PAIN OFFICE [address] [place] [address] 07/25/2019 10:49:41 07/25/2019 11:20:21 Osteoarthritis of knee 568995435 M17.0 Spinal ha nosis of lumbar region 55531622 M48.062 Lumbosacra l radiculitis 49925225 M54.17 Lumbosacra l spondylosis without myelopathy 50182849 M47.817 Displaceme nt of lumbar intervertebral disc without myelopathy 29333139 M51.26 43866 Ramon Aquino MD PAIN OFFICE [address] [place] [address] 08/15/2019 11:01:12 08/15/2019 13:42:11 Lumbosacral radiculitis 95514460 M54.17 Osteoarthr itis of knee 784697878 M17.0 Spinal ha nosis of lumbar region 18873041 M48.062 Lumbosacra l spondylosis without myelopathy 81199361 M47.817 Displaceme nt of lumbar intervertebral disc without myelopathy 52869044 M51.26 28343 Ramon Aquino MD PAIN OFFICE [address] [place] [address] 04/13/2021 15:45:02 04/14/2021 08:58:24 Lumbosacral radiculitis 74133087 M54.17 Osteoarthr itis of knee 153702748 M17.0 Spinal ha nosis of lumbar region 02954716 M48.062 Lumbosacra l spondylosis without myelopathy 30968151 M47.817 Displaceme nt of lumbar intervertebral disc without myelopathy 87434963 M51.26 Health Concerns Section Related Observation LastModified by Organization Detai ls LastModified Time None Recorded Concern Status LastModified by Organization Details LastModified Time None Recorded Advance Directives Directive None Recorded Payers Encounter Date Sequence Insurance Name Policy Number Policy Tavarez Covered Member ID Tavarez Member ID Guarantor Name 03/13/2019 1 [facility] - COMMUNITY PLAN - DUAL COMPLETE - SNP PLAN (MEDICARE REPLACEMENT HMO) [employer] Gayla E Tony [id number] Gayla Tony 03/27/2019 1 [facility] - COMMUNITY PLAN - DUAL COMPLETE - SNP PLAN (MEDICARE REPLACEMENT HMO) [employer] Gayla E Tony [id number] Gayla Tony 07/25/2019 1 [facility] - COMMUNITY PLAN - DUAL COMPLETE - SNP PLAN (MEDICARE REPLACEMENT HMO) [employer] Gayla E Tony [id number] Gayla Tony 08/15/2019 1 [facility] - COMMUNITY PLAN - DUAL COMPLETE - SNP PLAN (MEDICARE REPLACEMENT HMO) [employer] Gayla E Tony [id number] Gayla Tony 04/13/2021 1 [facility] - COMMUNITY PLAN - DUAL COMPLETE - SNP PLAN (MEDICARE REPLACEMENT HMO) [employer] Gayla E Tony [id number] Gayla Tony Notes Date Note Type Note Provider Name and Address Organization Details Recorded Time 03/13/2019 text/html She is here for a left knee steroid injection under ultrasound guidance. X-ray of both knees shows marked medial femorotibial joint space narrowing due to osteoarthritis. Ramon Aquino MD [address] [facility] , [address] [facility], [place], [address], [place] [facility] 03/14/2019 10:22:52 03/27/2019 text/html She is here for a right knee steroid injection under ultrasound guidance Ramon Aquino MD [address] [facility] , [address], [place], [address], [place] [facility] 03/27/2019 14:15:44 07/25/2019 text/html She is here for a left knee steroid injection under ultrasound guidance. X-ray of both knees shows marked medial femorotibial joint space narrowing due to osteoarthritis. Ramon Aquino MD [address] , [address], [place], [address], [place] [facility] 07/25/2019 14:13:36 08/15/2019 text/html She is here for a right knee steroid injection under ultrasound guidance Ramon Aquino MD [address] [facility] , [address], [place], [address], [facility] Pain Management 08/16/2019 08:57:28 04/13/2021 text/html This [...] and feels better. Ramon Aquino MD [address] [facility] , [address], [place], [address], [facility] Pain Management 04/14/2021 09:18:33 OBGyn Episode No OBEpisode recorded.
== END 2024-07-02 16:12 | disposition home or self-care (01) ==
PROVIDERS: PCP Internal Medicine; Visit Provider Physician Assistant
DX: J22 Unspecified acute lower respiratory infection (principal)

== ENCOUNTER → 2024-07-02 14:45 | Outpatient (BNVA) | payer OTHER, SELFPAY | PROVIDERS: PCP Internal Medicine; Visit Provider Physician Assistant | DX: J22 Unspecified acute lower respiratory infection (principal) | CPT/HCPCS: 99212 ==

== ENCOUNTER 2024-07-30 15:00 | Outpatient (RCR) | payer OTHER, SELFPAY ==
--- NOTE | 2024-06-17 11:43 | MHC.PT.EP ---
[facility] [place] [facility] [place] [address] Inez Gonsalez [address] [phone] F: [phone] F: [phone] F: [phone] F: [phone] Physical Therapy Plan of Care Date of Evaluation: 06/17/24 Date of Surgery: Diagnosis: sciatica Assessment: Patient is an 78 year old R handed female who presents with s/s consistent with sciatica, low back pain. 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 Patient past medical history includes asthma, mod/severe OA, and aortic valve replacement candidate. Current impairments include pain, posture, flexibility, ROM, strength, activity tolerance and functional mobility. Functional limitations include decreased ability to walk, stand, sleep, transfer, lift, carry, bend and pull. Patient is motivated with good rehab potential. Skilled PT will address impairments and functional limitations in order to achieve goals. Frequency and Duration: The patient will be seen 2x/week for 5 weeks. 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 Manual therapy to restore motion and function. Therapeutic exercise to improve strength and flexibility. Neuromuscular re-education for posture and balance. Therapeutic activities to return to functional activities of daily living. Electronically signed by: Nirav Gaviria, PT Please sign and return to therapist. Thank you for your referral.
--- NOTE | 2024-08-30 07:42 | MHC.PT.DC ---
[facility] [place] [facility] [place] [facility] [place] [facility] [address] Inez Gonsalez [address] [phone] F: [phone] F: [phone] F: [phone] F: [phone] Physical Therapy Discharge Report Diagnosis: sciatica Date of Surgery: Date of Evaluation: 06/17/24 Date of Discharge: Treatments to Date: 11 Cancellations to Date: No Shows to Date: Discharge Status: Improved Function Independent with HEP Recommend MD Follow-up Discharge Summary: 07/30; Pt I with HEP. Pt conts with pain from 3-9. Located R L/S. Hip strength improved, but mobility ROM is still limited. Pt F/U with MD and is DC with PRE's. 07/23; Pt felt relief after RX. Pt has 1 remaining PT visit. Discussed TENS unit a good CP and going to [facility] for stepper. 07/18;Pt has a critical access hospital appt in August for her back and in July for her sh. Suggested seeing MD sooner due to pain level. Recommended TENS for pain management. 07/16; Pt c/o increased ache and pain with standing hip exs. NV instruct s/l abd. Pt has 3 remaining visits critical access hospital. Pt I with HEP 07/11; Pt gets relief after RX. Pt needs to rest between exs do to SOB. Pt hips fatigued after exs. 07/09; Pt modified exs to her scottie today. Pt SOB after stepper rested and was fine. Pt felt relief after RX. 07/04; Pt hip fatigued after exs. Relief after manual RX. 07/02; Pt stated she had relief after manual RX. 06/25; Pt unable to bridge due to pain DC exs. Pt felt relief after manual RX. 06/20; Pt amb with anatalgic gait due to knee and hip and no assistive device. Pt fatigued after exs. NV manual L/S assess HEP. Patient is an 78 year old R handed female who presents with s/s consistent with sciatica, low back pain. 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 Patient past medical history includes asthma, mod/severe OA, and aortic valve replacement candidate. Current impairments include pain, posture, flexibility, ROM, strength, activity tolerance and functional mobility. Functional limitations include decreased ability to walk, stand, sleep, transfer, lift, carry, bend and pull. Patient is motivated with good rehab potential. Skilled PT will address impairments and functional limitations in order to achieve goals. Electronically signed by: Nirav Gaviria, PT Please sign and return to therapist. Thank you for your referral.
== END 2024-08-30 07:42 | disposition home or self-care (01) ==
LOC: HO.PTCHIC 15:00
PROVIDERS: PCP Internal Medicine; Visit Provider Internal Medicine
DX: M54.30 Sciatica, unspecified side (principal)
CPT/HCPCS: 97014; 97110; 97140; 97162

== ENCOUNTER 2024-09-09 12:57 | Outpatient (AMB) | payer OTHER, SELFPAY ==
--- NOTE | 2024-09-09 13:01 | A.OFFPC_ITS ---
Vital Signs 09/09/24 13:02 Height 5 ft 3 in Weight 226 lb BMI 40.0 BP 122/74 Blood Pressure Location Lt brachial Position Sitting Respiration 18 Pulse 73 Pulse Source Pulse Oximeter Temp 97.8 F Temp Source Oral Pulse Oximetry (%) 95 Oxygen Delivery Method Room Air Intake Visit Reasons: 3 month follow up Intake Note: Pt is here today for 3 months follow up visit. Allergies N.K.D.A. Allergy (Unknown, Uncoded 09/09/24 13:19) unknown Medication List - Last Reconciled 09/09/24 by Hoda Valentine MD acetaminophen 1,000 mg (2 x 500 mg) PO BID albuterol sulfate 90 mcg/actuation 2 puffs PO Q4H PRN aspirin 81 mg PO DAILY atorvastatin 80 mg PO DAILY Breo Ellipta 200-25 mcg/dose (fluticasone furoate-vilanterol) 1 inh inhalation DAILY NS cholecalciferol (vitamin D3) 25 mcg PO DAILY diphenhydramine HCl (Benadryl) 25 mg PO BID flaxseed oil 1,000 mg PO DAILY gabapentin 1 tabl qAM , 2 tabl q PM orally 2 times a day; incontinence pad, liner, disp (Poise Pads) 1 eight times a day Incruse Ellipta 62.5 mcg/actuation (umeclidinium) 1 inh inhalation BEDTIME NS krill oil PO montelukast 10 mg PO DAILY ropinirole 0.5 mg PO DAILY sertraline 100 mg PO DAILY triamcinolone acetonide 0.1% 1 appl topical BID 14 days vitamin B complex 1 tab PO DAILY Tobacco use date assessed: 09/09/24 Fall risk assessment: 2 + Falls in past year Last assessed Fall Risk: 09/09/24 Dental Screening Dental Screen Date: 06/14/24 HPI 3 month follow up HPI Details Pt presents for HTN, hyperlipid, COPD, stable on meds. Patient complains of persistent chronic left shoulder pain worse when trying to use it but also at night on and off since a fall 6 years ago. Right hip pain improved after physical therapy. Patient has an appointment with [facility] in the end of August. [facility] Medical History Hyperkalemia Aortic stenosis Annual physical exam Iron deficiency Hyperglycemia Depression Pain of left thumb Pneumonia Sinusitis, acute History of PFTs History of mammogram Osteoarthritis Hyperlipidemia Asthma Surgical History Hx of cardiac cath Family History Father No problems noted. Mother No problems noted. Social History Housing: House Patient Tobacco Use Status: Never used Tobacco e-Cigarette/Vaping Use: Never Used service: No Current occupational status: retired Cognitive needs: No Hearing needs: No Vision needs: Yes Questionnaire Thrive Questionnaire Date Thrive assessed: 06/14/24 I am a: Patient What is your living situation today?: I have a steady place to live Within the past 12 months, did the food you bought not last and you didn't have the money to get more?: Never true Within the past 12 months, did you worry whether your food would run out before you got money to buy more?: Never true Do you have trouble paying for medicines?: No Do you have trouble getting transportation to medical appointments?: No Do you have trouble paying your heating and electricity bill?: No Do you have trouble taking care of your child, family member or friend?: No Do you have trouble with day-to-day activities such as bathing, preparing meals, shopping, managing finances, etc.?: No Are you currently unemployed and looking for a job?: No Are you interested in more education?: No Please select the resources that you would like help with: None Currently or been in a relationship where the following occur: No concerns reported THRIVE Score: 0 JOSE-7 AMB Questionnaire JOSE-7 Date JOSE - 7 assessed: 06/14/24 Not being able to stop or control worryin = Several days Worrying too much about different things: 1 = Several days Trouble relaxin = Several days Being so restless that it is hard to sit still: 0 = Not at all Becoming easily annoyed or irritable: 1 = Several days Feeling afraid as if something awful might happen: 0 = Not at all Source: Developed by Drs. Sukhjinder Lopez, Bel Hanks, Charlie Choi and colleagues, with an educational solo from [employer]. Review of Systems Const All systems reviewed & are unremarkable except as noted in HPI and below Eyes Reports no additional complaints ENT Reports no additional complaints Card Reports no additional complaints Resp Reports no additional complaints GI Reports no additional complaints Physical exam (Primary Care) Vital Signs: Last Vital Signs Temp 97.8 F 09/09/24 13:02 Pulse 73 09/09/24 13:02 Resp 18 09/09/24 13:02 BP 122/74 09/09/24 13:02 Pulse Ox 95 09/09/24 13:02 Oxygen Delivery Method Room Air 09/09/24 13:02 BMI result Body Mass Index 40.0 Tobacco/Smoking Status: Tobacco use Status Tobacco use date assessed 09/09/24 09/09/24 13:24 Patient Tobacco Use Status Never used Tobacco 09/09/24 13:24 e-Cigarette/Vaping Use Never Used 09/09/24 13:02 Thrive Assessment: Date of Thrive Assessment Date Thrive assessed 06/14/24 09/09/24 13:02 Currently or been in a relationship where the following occur: No concerns reported Const General: no acute distress HENMT Mouth: Normal oral and palatal mucosa present Neck Neck: Yes supple Resp Effort & Inspection: normal respiratory effort Auscultation: diminished lung sounds Cardio Rhythm: regular rhythm Heart sounds: S1 normal heart sound present and S2 normal heart sound present GI Inspection: Yes normal to inspection Palpation (GI): Soft to palpation Percussion: Yes normal to percussion Auscultation: normal bowel sounds Extrem Other: There is significantly decreased range of motion in both shoulders Coding Level of Care Code Est Pt Level 4 (42392) Complex EM visit Add On G2211 Diagnoses COPD (chronic obstructive pulmonary disease) J44.9 Hyperlipidemia E78.5 Hyperglycemia R73.9 Vitamin D deficiency E55.9 Aortic stenosis I35.0 Shoulder pain, left M25.512 Assessment & Plan Assessment & Plan (1) COPD (chronic obstructive pulmonary disease): Code(s): J44.9 - Chronic obstructive pulmonary disease, unspecified Category: Medical Plan: Continue inhalers check PFTs (2) Hyperlipidemia: Code(s): E78.5 - Hyperlipidemia, unspecified Category: Medical Plan: Continue statin (3) Hyperglycemia: Code(s): R73.9 - Hyperglycemia, unspecified Category: Medical Plan: Continue ADA diet increase exercise weight loss discussed with the patient monitor A1c (4) Vitamin D deficiency: Code(s): E55.9 - Vitamin D deficiency, unspecified Category: Medical Plan: Continue vitamin D (5) Aortic stenosis: Comment: Mild September 2019, mild -mod 10/11,mod 05/2023, moderate 04/2024 follow-up with Cardiology Code(s): I35.0 - Nonrheumatic aortic (valve) stenosis Category: Medical Plan: Established with cardiology getting annual echocardiogram (6) Shoulder pain, left: Code(s): M25.512 - Pain in left shoulder Category: Medical Plan: She was advised to restart left shoulder exercises she was given during her physical therapy in the past. She will follow-up with ortho Orders: Orders PFT pulmonary function test Today J44.9 - Chronic obstructive pulmonary disease, unspecified Comprehensive [place]. Panel Fast 3 Months E55.9 - Vitamin D deficiency, unspecified, E78.5 - Hyperlipidemia, unspecified, R73.9 - Hyperglycemia, unspecified Hemoglobin A1c 3 Months E55.9 - Vitamin D deficiency, unspecified, E78.5 - Hyperlipidemia, unspecified, R73.9 - Hyperglycemia, unspecified Vitamin D 25-OH Total 3 Months E55.9 - Vitamin D deficiency, unspecified, E78.5 - Hyperlipidemia, unspecified, R73.9 - Hyperglycemia, unspecified Complete Blood Count Auto Diff 3 Months E55.9 - Vitamin D deficiency, unspecified, E78.5 - Hyperlipidemia, unspecified, R73.9 - Hyperglycemia, unspecified Medications: New acetaminophen 1,000 mg (2 x 500 mg) PO BID 360 tabs 3RF pain Changed From gabapentin 300 mg PO BID 180 caps 1RF To gabapentin 1 tabl qAM , 2 tabl q PM orally 2 times a day; 270 caps 3RF
[2024-09-09 13:02] VITALS: BP 122/74; PULSE 73; RESP 18; TEMP 36.6; O2SAT 95; BMI 40.0
--- OUTSIDE RECORDS SUMMARY | 2024-09-09 13:42 | XMS_ITS | Clinical Summary ---
Author Organization [facility] Address [address] [place] [id number] Phone Care Team Providers Care Applications System Analyst Name Role Phone Allen Saeed MD Primary Care Provider [phone] Allergies No known active allergies Medications atorvastatin (LIPITOR) 80 MG tablet Take 80 mg by mouth every morning. 4 Active baclofen (LIORESAL) 10 MG tablet Take 10 mg by mouth nightly at bedtime. at bedtime. 4 Active betamethasone dipropionate 0.05 % cream 4 Active BREO ELLIPTA 200-25 mcg/dose inhaler Inhale 1 puff into the lungs daily. 4 Active meloxicam (MOBIC) 15 MG tablet Take 1 tablet by mouth every morning. 4 Active sertraline (ZOLOFT) 100 MG tablet Take 100 mg by mouth every morning. 4 Active rOPINIRole (REQUIP) 0.5 MG tablet 4 Active SPIRIVA RESPIMAT 1.25 mcg/actuation Mist Inhale 2 puffs into the lungs daily. 4 Active aspirin 325 MG EC tablet Take 81 mg by mouth daily. Active cholecalciferol (VITAMIN D3) 25 MCG (1,000 unit) tablet Take 1,000 Units by mouth daily. Active b complex vitamins capsule Take 1 capsule by mouth daily. Active acetaminophen (TYLENOL) 500 MG tablet Take 500 mg by mouth every 6 (six) hours as needed for pain (specific location in comments). Active Active Problems Problem Noted Date Diagnosed Date Basal cell carcinoma of neck 01/04/2024 Social History Tobacco Use Types Packs/Day Years Used Date Smoking Tobacco: Never Assessed Education Answer Date Recorded Are you interested in more education? Not on anna e 06/17/2022 Are you concerned about learning? Not on file 06/17/2022 No 06/17/2022 No 06/17/2022 Digital Access Answer Date Recorded No 07/19/2022 No 07/19/2022 Reliable internet access at home? Not on file 07/19/2022 Device with a working camera? Not on file Comments Unknown Sex and Gender Information Value Date Recorded Sex Assigned at Not on file Legal Sex Female 10:15 AM EST Gender Identity Not on file Sexual Orientation Not on file Last Filed Vital Signs Vital Sign Reading Time Taken Comments Blood Pressure 137/74 12/14/2023 1:49 PM EDT Pulse 76 12/14/2023 1:49 PM EDT Temperature - - Respiratory Rate - - Oxygen Saturation - - Inhaled Oxygen Concentration - - Weight 100.3 kg (221 lb 3.2 oz) 12/14/2023 1:49 PM EDT Height 158.8 cm (5' 2.5 ) 12/14/2023 1:49 PM EDT Body Mass Index 39.81 12/14/2023 1:49 PM EDT Plan of Treatment Health Maintenance Due Date Last Done Comments Adult Td,Tdap Booster 1945 LIPID PANEL 1945 DEPRESSION SCREENING 1955 SMOKING Hx and SMOKELESS TOBACCO SCREENING 12/10/1956 PNEUMOCOCCAL VACCINES (50+ years) (1 of 1 - PCV) 12/10/1993 ZOSTER VACCINES (1 of 2) 12/10/1993 OSTEOPOROSIS SCREENING INITI AL (ONE-TIME) 12/10/2008 RSV VACCINE (1 - 1-dose 75+ series) 12/10/2018 COVID-19 VACCINE (2023-2 5 season) 2023 04/14/2020, 04/14/2020 HEPATITIS A VACCINES Aged Out No long er eligible based on patient's age to complete this topic HIB VACCINES Aged Out No longer eligi ble based on patient's age to complete this topic MENINGOCOCCAL VACCINES (ACWY) Aged Out No longer eligible based on patient's age to complete this topic MENINGOCOCCAL VACCINES (B) Aged Out N o longer eligible based on patient's age to complete this topic Medical Devices Not on file Insurance [facility] Member Subscriber Plan / Payer (Ef fective 2023-Present) Name:Gayla Jimenez Relation to Subscriber:Self Name:Gayla Jimenez Payer ID:[id number] (NAIC) Group ID:[id number] Type:Medicare Address: [address] [facility] [facility] MEDICARE PART A & B [facility] MEDICARE REPLACEMENT MEDICARE PART A & B [facility] MEDICARE REPLACEMENT MEDICARE PART A & B [facility] MEDICARE REPLACEMENT MEDICARE PART A & B MEDICARE PART A & B [facility] MEDICARE REPLACEMENT MEDICARE PART A & B Care Teams Applications System Analyst Relationship Specialty Start Date End Date Allen Saeed MD [address] [place] [address] PCP - General Internal Medicine 11/29/23 Additional Source Comments The information contained in this document represents components of the legal health record. It is not the complete legal health record.[facility]
--- OUTSIDE RECORDS SUMMARY | 2024-09-09 13:42 | XMS_ITS | Clinical Summary ---
Author Organization [facility] Address [address] [place] [address] Phone Care Team Providers Care It Assistant Name Role Phone Hoda Valentine MD Primary Care Provider Encounters Date Type Department Care Team Description 07/25/2024 1:04 PM EDT - 07/25/2024 11:59 PM EDT [facility] [address] [address] Encounter for screening mammogram for breast cancer Discharge Disposition: Home or Self Care from Last 3 Months Surgical History Surgery Date Site/Laterality Comments STEREOTACTIC CORE BIOPSY Right Family History Medical History Relation Name Comments Breast cancer Niece Breast cancer Sister 1 Breast cancer Sister 2 Relation Name Status Comments Niece Alive Sister 1 Sister 2 Alive Social History Tobacco Use Types Packs/Day Years Used Date Smoking Tobacco: Never Assessed Comments No Sex and Gender Information Value Date Recorded Sex Assigned at Not on file Legal Sex Female 1:13 PM EST Gender Identity Not on file Sexual Orientation Not on file Obstetrics History Last Filed Vital Signs Vital Sign Reading Time Taken Comments Blood Pressure - - Pulse - - Temperature - - Respiratory Rate - - Oxygen Saturation - - Inhaled Oxygen Concentration - - Weight 102 kg (225 lb) 07/25/2024 1:15 PM EDT Height 160 cm (5' 3 ) 07/25/2024 1:15 PM EDT Body Mass Index 39.86 07/25/2024 1:15 PM EDT Plan of Treatment Health Maintenance Due Date Last Done Comments Zoster Vaccines (1 of 2) 12/10/1962 Falls Risk Assessment 01/18/2022 Medicare Annual Wellness Visit 01/18/2022 Osteoporosis Screening (Bone Density Screening) 01/18/2022 Social Influencers of Health Screening 01/18/2022 Depression Screening 02/21/2024 Influenza Vaccine (#1) 2024 , 02/02/2023, 01/28/2022, Additional history exists DTaP,Tdap,and Td Vaccines (2 - Td or Tdap) 08/23/2030 08/23/2020 RSV Immunization Adult Patients Completed 02/23/2023 COVID-19 Vaccine Completed 05/24/2024, 08/2023, 06/23/2023, Additional history exists Pneumococcal Vaccine: 50+ Years Completed 06/14/2024, 10/18/2016 HIB Vaccines Aged Out No longer eligi [...] to complete this topic RSV Immunization Patients Under 20 months Aged Out No longer eligible based on patient's age to complete this topic Varicella Vaccines Aged Out No longer eligible based on patient's age to complete this topic Procedures Procedure Name Priority Date/Time Associated Diagnosis Comments MG MAMMO DIGITAL SCREENING W DAK[place] BILAT Routine 07/25/2024 1:27 PM EDT Encounter for screening mammogram for breast cancer from Last 3 Months Results * MG Mammo Digital Screening w [place] bilat (07/25/2024 1:27 PM EDT) Anatomical Region Laterality Modality Breast Bilateral Mammography 07/25/2024 4:14 PM EDT Impressions 07/25/2024 4:27 PM EDT No mammographic evidence of malignancy. No suspicious interval change. A negative mammogram in the presence of a clinically suspicious palpable abnormality does not preclude the possibility of malignancy or alter the indications for biopsy. ASSESSMENT: BI-RADS 1: NEGATIVE RECOMMENDATION(S): 1: Routine screening mammogram BILATERAL in 1 year. [facility] location[facility] [address], [address] -------- FINAL REPORT -------- Dictated By: Aly Hannon Dictated Date: 07/25/2024 16:14 ET Assigned Physician: Aly Hannon Reviewed and Electronically Signed By: Aly Hannon Signed Date: 07/25/2024 16:27 ET Workstation ID: [id number] Transcribed By: Self Edit Transcribed Date: 07/25/2024 16:14 ET Narrative 07/25/2024 4:27 PM EDT EXAM: SCREENING MAMMOGRAPHY, BILATERAL HISTORY: SCREENING. Family history of breast cancer; sister, sister, niece with history of breast cancer COMPARISON: 03/13/23, 01/06/22, 11/04/20 TECHNIQUE: Synthesized CC and MLO projections of each breast. Tomosynthesis of each breast in the CC and MLO projections. ADDITIONAL IMAGING: None Technologist indicates the patient has limited range of motion making optimal positioning difficult. Computer-aided detection was employed with the [employer] AI 3-D. TISSUE DENSITY: There are scattered areas of fibroglandular density. (BI-RADS category B) FINDINGS: The patient was unable to be optimally positioned. RIGHT BREAST: No suspicious mass. No suspicious calcification. No distortion. No suspicious change in the region of a biopsy site marker LEFT BREAST: No suspicious mass. No suspicious calcification. No distortion. No additional suspicious left breast findings Procedure Note Aly Hannon MD - 07/25/2024 EXAM: SCREENING MAMMOGRAPHY, BILATERAL HISTORY: SCREENING. Family history of breast cancer; sister, sister,niece with history of breast cancer COMPARISON: 03/13/23, 01/06/22, 11/04/20 TECHNIQUE: Synthesized CC and MLO projections of each breast.Tomosynthesis of each breast in the CC and MLO projections. ADDITIONAL IMAGING: None Technologist indicates the patient has limited range of motion makingoptimal positioning difficult. Computer-aided detection was employed with the [employer] AI 3-D. TISSUE DENSITY: There are scattered areas of fibroglandular density.(BI-RADS category B) FINDINGS: The patient was unable to be optimally positioned. RIGHT BREAST: No suspicious mass. No suspicious calcification. No distortion. Nosuspicious change in the region of a biopsy site marker LEFT BREAST: No suspicious mass. No suspicious calcification. No distortion. Noadditional suspicious left breast findings IMPRESSION: No mammographic evidence of malignancy. No suspicious interval change. A negative mammogram in the presence of a clinically suspicious palpableabnormality does not preclude the possibility of malignancy or alter theindications for biopsy. ASSESSMENT: BI-RADS 1: NEGATIVE RECOMMENDATION(S): 1: Routine screening mammogram BILATERAL in 1 year. [facility] [address] [place], [address] -------- FINAL REPORT -------- Dictated By: Aly Hannon Dictated Date: 07/25/2024 16:14 ET Assigned Physician: Aly Hannon Reviewed and Electronically Signed By: Aly Hannon Signed Date: 07/25/2024 16:27 ET Workstation ID: [id number] Transcribed By: Self Edit Transcribed Date: 07/25/2024 16:14 ET us Self Referral Sppl IMG BI PROCEDURES Final Resul t from Last 3 Months Insurance [facility] MEDICARE Member Subscriber Plan / Payer (Ef fective 2023-Present) Name:Gayla Jimenez Relation to Subscriber:Self Name:Gayla Jimenez Sr Payer ID:[id number] Group ID:[id number] Type:Not on file Address: [place] [address] [address] [id number] Advance Directives Documents on File Type Date Recorded Patient Oral Health Therapist Expl anation Health Care Decision (hx) 04/25/2014 [...] (hx) 04/25/2014 AD VILA DIRECTIVE Care Teams It Assistant Relationship Specialty Start Date End Date Hoda Valentine MD PCP - General Safety Security Officer 11/13/19
--- OUTSIDE RECORDS SUMMARY | 2024-09-09 13:43 | XMS_ITS | Data Portability ---
Author Organization [facility] Address [address] [facility] [address] [place] [address] Care Team Providers Care Technical Support Engineer Name Role Phone EL ROTHMAN Primary Care [...] cycloben zaprine 10 mg tablet 2019 020 [email or web address] [id number], [address] [place], [place], [id number], 0 11:06:05 Patient TargetsNo targets recorded. Patient Instructions Encounter Date Encounter Id Patient Instructions Last Modified By Organization Details Last Modified Time 03/13/2019 [id number] She was advised against bed rest lasting longer than four days and to continue activities as tolerated. [email or web address] Not available 03/13/2019 14:01:49 03/27/2019 [id number] She was advised against bed rest lasting longer than four days and to continue activities as tolerated. [email or web address] Not available 03/27/2019 13:52:16 07/25/2019 [id number] She was advised against bed rest lasting longer than four days and to continue activities as tolerated. [email or web address] Not available 07/25/2019 11:18:09 08/15/2019 [id number] She was advised against bed rest lasting longer than four days and to continue activities as tolerated. [email or web address] Not available 08/15/2019 13:29:57 04/13/2021 [id number] Telehealth visit: The patient was located at [...] XR, knee No observ ation record ed. [facility] Imaging Dept [address] [place] [address], [address], 07/25/2019 10:57:32 Result Notes None recorded. Problems Name Problem SNOMED Code Status Onset Date Resolution Date Notes Provider Name and Address Organization Details Recorded Time Osteoarthritis of knee 146861052 Active Ramon khan MD [email or web address] [facility] , [facility] [address], [place], [address], [place] [facility] 8 14:20:03 Spinal stenosis of lumbar region 55160459 Active 2016 Ramon khan MD [email or web address] [facility] , [address], [place], [address], [place] [facility] 7 13:33:09 Lumbosacral radiculitis 05371773 Active 2016 Ramon khan MD [email or web address] [facility] , [address], [place], [address], [place] [facility] 7 13:33:10 Lumbosacral spondylosis without myelopathy 79674915 Active 2016 Ramon khan MD [address] , [address], [facility], [address], [place] [facility] 7 13:33:11 Displacement of lumbar intervertebral disc without myelopathy 42404469 Active 2016 Ramon khan MD [address] [employer] , [address], [facility] [place], [address], [place] [facility] 7 13:33:12 Problem Notes None recorded. Procedures Surgical History Date Name Laterality Status Provider Name and Address Organization Details Recorded Time 08/15/19 20 Intra-articular Knee Steroid Injection completed Ramon Aquino MD [address] [employer] , [address], [facility] [place], [address], [place] [facility] 08/15/2019 13:30:09 07/25/19 20 Intra-articular Knee Steroid Injection completed Ramon Aquino MD [address] [employer] , [address], [facility] [place], [address], [place] [facility] 07/25/2019 11:18:23 03/27/19 20 Intra-articular Knee Steroid Injection completed Ramon Aquino MD [address] [employer] , [address], [facility] [place], [address], [place] [facility] 03/27/2019 13:52:30 03/13/19 20 Intra-articular Knee Steroid Injection completed Ramon Aquino MD [address] [employer] , [address], [place], [address], [place] [facility] 03/13/2019 14:02:01 12/13/19 19 Intra-articular Knee Steroid Injection completed Ramon Aquino MD [address] [employer] , [address], [place], [address], [place] [facility] 12/13/2018 09:21:27 11/29/19 19 Intra-articular Knee Steroid Injection completed Ramon Aquino MD [address] [employer] , [address], [place], [address], [place] [facility] 11/30/2018 15:09:31 08/23/19 19 Intra-articular Knee Steroid Injection completed Ramon Aquino MD [address] [employer] , [address], [place], [address], [place] [facility] 08/22/2018 14:41:48 08/09/19 19 Intra-articular Knee Steroid Injection completed Ramon Aqiuno MD [address] [employer] , [address], [place], [address], [place] [facility] 08/08/2018 13:47:26 05/03/19 19 Intra-articular Knee Steroid Injection completed Ramon Aquino MD [address] [employer] , [address], [place], [address], [place] [facility] 05/02/2018 14:19:29 04/18/19 19 Intra-articular Knee Steroid Injection completed Ramon Aquino MD [address] [employer] , [address], [place], [address], [place] [facility] 04/18/2018 14:34:57 01/17/20 18 Intra-articular Knee Steroid Injection completed Ramon Aquino MD [address] [employer] , [address], [place], [address], [place] [facility] 01/16/2018 13:47:30 01/04/20 18 Intra-articular Knee Steroid Injection completed Ramon Aquino MD [address] [employer] , [address], [place], [address], [place] [facility] 01/04/2018 10:08:01 10/12/19 18 Intra-articular Knee Steroid Injection completed Ramon Aquino MD [address] [employer] , [address], [place], [address], [place] [facility] 10/11/2017 15:04:53 09/28/19 18 Intra-articular Knee Steroid Injection completed Ramon Aquino MD [address] [employer] , [address], [place], [address], [place] [facility] 09/27/2017 14:19:25 08/23/19 18 Lumbar Epidural steroid injection under fluoroscopic guidance completed Ramon Aquino MD [address] [employer] , [address], [place], [address], [place] [facility] 08/22/2017 11:42:16 04/05/19 18 Lumbar Epidural steroid injection under fluoroscopic guidance completed Ramon Aquino MD [address] , [address], [place], [address], [place] [facility] 04/05/2017 13:39:16 01/26/20 17 Lumbar Epidural steroid injection under fluoroscopic guidance completed Ramon Aquino MD [address] , [address], [place], [address], [place] [facility] 01/25/2017 13:32:23 Cholecystectomy completed Maddy Orlando [place] [facility] 01/09/2017 14:22:01 Arthroscopic Surgery completed Maddyheaven Perry [place] - [facility] 01/09/2017 14:22:28 Cataract Surgery completed Maddyheaven Perry [place] [facility] 01/09/2017 14:23:02 total knee replacement completed Ramon Aquino MD [email or web address] , [address], [place], [address], [place] [facility] 04/13/2021 15:49:42 Imaging Results None recorded. Procedure Notes None recorded. Medical Equipment None [...] Not Available No t Available amoxicillin 875 mg-potassiu m clavulanate 125 mg tablet take 1 [...] Not Available Not Available Not Available Fluad 2018- 65yr up(PF)45 mcg(15 mcgx3)/0.5 mL intramuscul ar syringe inject 0.5 millilite r intramusc ularly 08/22 completed Not Available Not Available Not Available ZTlido 1.8 % topical patch 04/13 completed Not Available Not Available Not Available Vitals Date Recorded Body height Body mass index (BMI) Body weight Heart rate Oxygen saturation Oxygen saturation in Arterial blood by Pulse oximetry Systolic And Diastolic Provider Name and Address Organization Details Last Updated DateTime 0 160.02 cm 41.6 kg/m2 491916. 21 g 83 /min 97 % 97 % 147/81 mm[Hg] Lino khan [place] [facility] 0 13:42:58 Date Recorded Body height Heart rate Oxygen saturation Oxygen saturation in Arterial blood by Pulse oximetry Systolic And Diastolic Provider Name and Address Organization Details Last Updated DateTime 0 160.02 cm 83 /min 97 % 97 % 147/81 mm[Hg] Lino khan [place] [facility] 0 13:30:13 Date Recorded Body height Heart rate Oxygen saturation Oxygen saturation in Arterial blood by Pulse oximetry Systolic And Diastolic Provider Name and Address Organization Details Last Updated DateTime 0 160.02 cm 91 /min 97 % 97 % 133/73 mm[Hg] Cheli Garcia [place] [facility] 0 10:58:50 Date Recorded Body height Oxygen saturation Oxygen saturation in Arterial blood by Pulse oximetry Heart rate Body mass index (BMI) Body weight Systolic And Diastolic Provider Name and Address Organization Details Last Updated DateTime 0 160.02 cm 98 % 98 % 98 /min 41.6 kg/m2 844773. 21 g 90/42 mm[Hg] Ram[facility]han MD [address] [facility] , [address], [place], [address], [place] [facility] 0 11:05:37 Social History Question Answer Notes LastModified by Organizat ion Details LastModified Time Tobacco Smoking Status Never Smoker Not Available [employer] 12/06/2019 03:16:11 Which Illicit Or Recreational Drugs Have You Used? No [id number] Information not available 12/06/2019 Education Post Graduate Masters [email or web address] Information not available 01/09/2017 Marital Status Single [email or web address] Informatio n not available 01/09/2017 What Was The Date Of Your Most Recent Tobacco Screening? 08/22/2018 [id number] Information not available 12/06/2019 Sex: Unknown Functional Status Question Answer Note LastModified by Organizat ion Details LastModified Time What is your level of alcohol consumption? Moderate [id number] Information not available 12/06/2019 Are you currently employed? 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 [employer] [id number] Information not available 12/06/2019 Mental Status None [...] SNOMED-CT Code Diagnosis ICD10 Code Diagnosis Note [id number] Ramon Aquino MD [facility] [address] [facility],[address] [address] 01/09/2017 14:01:45 01/09/2017 15:28:23 Spinal stenosis of lumbar region 47465750 M48.062 Lumbosacra l radiculitis 39964181 M54.17 Lumbosacra l spondylosis without myelopathy 17078247 M47.817 Displaceme nt of lumbar intervertebral disc without myelopathy 49951465 M51.26 [id number] Ramon Aquino MD [facility] [address] [place] [address] 01/25/2017 11:48:05 01/25/2017 15:32:18 Spinal stenosis of lumbar region 30364418 M48.062 Lumbosacra l radiculitis 62585524 M54.17 Lumbosacra l spondylosis without myelopathy 44584077 M47.817 Displaceme nt of lumbar intervertebral disc without myelopathy 06327030 M51.26 90741 Ramon Aquino MD PAIN OFFICE [address] [place] [address] 02/27/2017 12:53:03 02/27/2017 14:38:36 Spinal stenosis of lumbar region 74601449 M48.062 Lumbosacra l radiculitis 98873418 M54.17 Lumbosacra l spondylosis without myelopathy 40768789 M47.817 Displaceme nt of lumbar intervertebral disc without myelopathy 23219603 M51.26 96956 Ramon Aquino MD [facility] [address] [address] 04/05/2017 10:11:11 04/05/2017 13:45:56 Spinal stenosis of lumbar region 84303952 M48.062 Lumbosacra l radiculitis 95234695 M54.17 Lumbosacra l spondylosis without myelopathy 21591206 M47.817 Displaceme nt of lumbar intervertebral disc without myelopathy 75282659 M51.26 [id number] Ramon Aquino MD [facility] [address] [address] 05/11/2017 13:29:35 05/11/2017 15:25:20 Spinal stenosis of lumbar region 37850774 M48.062 Lumbosacra l radiculitis 70864077 M54.17 Lumbosacra l spondylosis without myelopathy 18100385 M47.817 Displaceme nt of lumbar intervertebral disc without myelopathy 77989446 M51.26 30280 Ramon Aquino MD [facility] PA[facility] [address] [place] [address] 07/03/2017 13:19:17 07/14/2017 08:55:46 Spinal stenosis of lumbar region 76285855 M48.062 Lumbosacra l radiculitis 18254458 M54.17 Lumbosacra l spondylosis without myelopathy 15987554 M47.817 Displaceme nt of lumbar intervertebral disc without myelopathy 02545969 M51.26 03343 Ramon Aquino MD [facility] PA[facility] [address] [place] [address] 08/22/2017 10:51:32 08/22/2017 11:49:32 Spinal stenosis of lumbar region 23867061 M48.062 Lumbosacra l radiculitis 52697029 M54.17 Lumbosacra l spondylosis without myelopathy 47242997 M47.817 Displaceme nt of lumbar intervertebral disc without myelopathy 65447130 M51.26 24420 Ramon Aquino MD PAIN OFFICE [address] [place] [address] 09/27/2017 11:27:58 09/27/2017 14:47:38 Osteoarthritis of knee 537507284 M17.0 Spinal ha nosis of lumbar region 03537612 M48.062 Lumbosacra l radiculitis 65188705 M54.17 Lumbosacra l spondylosis without myelopathy 19591602 M47.817 Displaceme nt of lumbar intervertebral disc without myelopathy 80717373 M51.26 07144 Ramon Aquino MD [facility] PAIN [facility] [address] [place] [address] 10/11/2017 11:26:34 10/11/2017 15:09:43 Lumbosacral radiculitis 58405061 M54.17 Osteoarthr itis of knee 625848576 M17.0 Spinal ha nosis of lumbar region 71110892 M48.062 Lumbosacra l spondylosis without myelopathy 30251664 M47.817 Displaceme nt of lumbar intervertebral disc without myelopathy 75303276 M51.26 96956 Ramon Aquino MD [facility] PAIN [facility] [address] [facility] [place] [address] 12/12/2017 11:31:19 01/02/2018 15:18:40 Osteoarthritis of knee 191446375 M17.0 Spinal ha nosis of lumbar region 02565089 M48.062 Lumbosacra l radiculitis 17472254 M54.17 Lumbosacra l spondylosis without myelopathy 45938421 M47.817 Displaceme nt of lumbar intervertebral disc without myelopathy 15159886 M51.26 [id number] Ramon Aquino MD PAIN OFFICE [address] [place] [address] 01/03/2018 14:23:47 01/04/2018 10:10:46 Osteoarthritis of knee 749288955 M17.0 Spinal ha nosis of lumbar region 36278432 M48.062 Lumbosacra l radiculitis 21842919 M54.17 Lumbosacra l spondylosis without myelopathy 97696031 M47.817 Displaceme nt of lumbar intervertebral disc without myelopathy 08121332 M51.26 38868 Ramon Aquino MD [facility] PA[facility] [address] [place] [address] 01/16/2018 13:04:29 01/16/2018 13:49:28 Lumbosacral radiculitis 07849384 M54.17 Osteoarthr itis of knee 663967755 M17.0 Spinal ha nosis of lumbar region 53835767 M48.062 Lumbosacra l spondylosis without myelopathy 22736889 M47.817 Displaceme nt of lumbar intervertebral disc without myelopathy 05859928 M51.26 55790 Ramon Aquino MD [facility] PA[facility] [address] [place] [address] 04/18/2018 13:04:05 04/18/2018 14:38:28 Osteoarthritis of knee 760644893 M17.0 Spinal ha nosis of lumbar region 18939772 M48.062 Lumbosacra l radiculitis 23212458 M54.17 Lumbosacra l spondylosis without myelopathy 16470280 M47.817 Displaceme nt of lumbar intervertebral disc without myelopathy 84550775 M51.26 79176 Ramon Aquino MD [facility] PA[facility] [address] [place] [address] 05/02/2018 13:18:56 05/02/2018 14:22:08 Lumbosacral radiculitis 87753443 M54.17 Osteoarthr itis of knee 872274257 M17.0 Spinal ha nosis of lumbar region 41685393 M48.062 Lumbosacra l spondylosis without myelopathy 31725172 M47.817 Displaceme nt of lumbar intervertebral disc without myelopathy 93650759 M51.26 61467 Ramon Aquino MD PAIN OFFICE [address] [address] 08/08/2018 13:07:47 08/08/2018 13:52:31 Osteoarthritis of knee 368453403 M17.0 Spinal ha nosis of lumbar region 34461057 M48.062 Lumbosacra l radiculitis 49227767 M54.17 Lumbosacra l spondylosis without myelopathy 93318281 M47.817 Displaceme nt of lumbar intervertebral disc without myelopathy 25924827 M51.26 20397 Ramon Aquino MD PAIN OFFICE [address] [address] 08/22/2018 13:44:14 08/22/2018 14:44:06 Lumbosacral radiculitis 86360773 M54.17 Osteoarthr itis of knee 592645967 M17.0 Spinal ha nosis of lumbar region 33382252 M48.062 Lumbosacra l spondylosis without myelopathy 94467585 M47.817 Displaceme nt of lumbar intervertebral disc without myelopathy 91151623 M51.26 65984 Ramon Aquino MD [facility] PA[facility] [address] [place] [address] 11/28/2018 15:07:37 11/30/2018 15:11:20 Osteoarthritis of knee 808363794 M17.0 Spinal ah nosis of lumbar region 25235850 M48.062 Lumbosacra l radiculitis 64197041 M54.17 Lumbosacra l spondylosis without myelopathy 56501950 M47.817 Displaceme nt of lumbar intervertebral disc without myelopathy 33041766 M51.26 08471 Ramon Aquino MD PAIN OFFICE [address] [place] [address] 12/12/2018 15:26:51 12/13/2018 09:57:44 Lumbosacral radiculitis 08459552 M54.17 Osteoarthr itis of knee 969082197 M17.0 Spinal ha nosis of lumbar region 13373530 M48.062 Lumbosacra l spondylosis without myelopathy 12085333 M47.817 Displaceme nt of lumbar intervertebral disc without myelopathy 59527428 M51.26 [id number] Ramon Aquino MD PAIN OFFICE [address] [place] [address] 03/13/2019 13:41:19 03/13/2019 14:04:27 Osteoarthritis of knee 780386338 M17.0 Spinal ha nosis of lumbar region 52481004 M48.062 Lumbosacra l radiculitis 08725889 M54.17 Lumbosacra l spondylosis without myelopathy 11522266 M47.817 Displaceme nt of lumbar intervertebral disc without myelopathy 29199993 M51.26 28013 Ramon Aquino MD PAIN OFFICE [address] [place] [address] 03/27/2019 13:02:41 03/27/2019 13:54:11 Lumbosacral radiculitis 03484606 M54.17 Osteoarthr itis of knee 271077532 M17.0 Spinal ha nosis of lumbar region 07509496 M48.062 Lumbosacra l spondylosis without myelopathy 03942287 M47.817 Displaceme nt of lumbar intervertebral disc without myelopathy 96173766 M51.26 93826 Ramon Aquino MD PAIN OFFICE [address] [place] [address] 07/25/2019 10:49:41 07/25/2019 11:20:21 Osteoarthritis of knee 223632161 M17.0 Spinal ha nosis of lumbar region 69949268 M48.062 Lumbosacra l radiculitis 42527662 M54.17 Lumbosacra l spondylosis without myelopathy 18594881 M47.817 Displaceme nt of lumbar intervertebral disc without myelopathy 44136711 M51.26 73606 Ramon Aquino MD PAIN OFFICE [address] [place] [address] 08/15/2019 11:01:12 08/15/2019 13:42:11 Lumbosacral radiculitis 05544089 M54.17 Osteoarthr itis of knee 437313444 M17.0 Spinal ha nosis of lumbar region 50362114 M48.062 Lumbosacra l spondylosis without myelopathy 00212930 M47.817 Displaceme nt of lumbar intervertebral disc without myelopathy 51676623 M51.26 11985 Ramon Aquino MD PAIN OFFICE [address] [place] [address] 04/13/2021 15:45:02 04/14/2021 08:58:24 Lumbosacral radiculitis 94706481 M54.17 Osteoarthr itis of knee 502722173 M17.0 Spinal ha nosis of lumbar region 02366447 M48.062 Lumbosacra l spondylosis without myelopathy 04173276 M47.817 Displaceme nt of lumbar intervertebral disc without myelopathy 62018394 M51.26 Health Concerns Section Related Observation LastModified by Organization Detai ls LastModified Time None Recorded Concern Status LastModified by Organization Details LastModified Time None Recorded Advance Directives Directive None Recorded Payers Insurance Date Sequence Insurance Name Policy Number Policy Tavarez Covered Member ID Tavarez Member ID Guarantor Name 04/13/2021 1 [facility] (MEDICARE REPLACEMENT/A DVANTAGE - HMO) [facility] [place] [id number] Gayla Jimenez 03/27/2019 2 MEDICARE B-[place]: [facility] Gayla Jimenez [id number] Gayla Jimenez Notes Date Note Type Note Provider Name and Address Organization Details Recorded Time 03/13/2019 text/html She is here for a left knee steroid injection under ultrasound guidance. X-ray of both knees shows marked medial femorotibial joint space narrowing due to osteoarthritis. Ramon Aquino MD [address] [facility] , [address], [place], [address], [place] - [facility] 03/14/2019 10:22:52 03/27/2019 text/html She is here for a right knee steroid injection under ultrasound guidance Ramon Aquino MD [address] [facility] , [address], [place], [address], [place] - Pain Management 03/27/2019 14:15:44 07/25/2019 text/html She is here for a left knee steroid injection under ultrasound guidance. X-ray of both knees shows marked medial femorotibial joint space narrowing due to osteoarthritis. Ramon Aquino MD [address] [facility] , [address], [place], [address], [place] - Pain Management 07/25/2019 14:13:36 08/15/2019 text/html She is here for a right knee steroid injection under ultrasound guidance [facility]ino MD [address] [facility] , [address], [place], [address], [place] - [facility] Management 08/16/2019 08:57:28 04/13/2021 text/html This [...] and feels better. Ramon Aquino MD [address] [facility] , [address], [place], [address], [place] - Pain Management 04/14/2021 09:18:33 OBGyn Episode No OBEpisode recorded.
== END 2024-09-09 14:11 | disposition home or self-care (01) ==
LOC: HO.HMCC 12:58
PROVIDERS: PCP Internal Medicine; Visit Provider Internal Medicine
DX: J44.9 Chronic obstructive pulmonary disease, unspecified (principal); E78.5 Hyperlipidemia, unspecified; R73.9 Hyperglycemia, unspecified; E55.9 Vitamin D deficiency, unspecified; I35.0 Nonrheumatic aortic (valve) stenosis; M25.512 Pain in left shoulder

== ENCOUNTER → 2024-09-09 12:57 | Outpatient (BNVA) | payer OTHER, SELFPAY | PROVIDERS: PCP Internal Medicine; Visit Provider Internal Medicine | DX: M25.512 Pain in left shoulder (principal); M25.551 Pain in right hip; I10 Essential (primary) hypertension; E78.5 Hyperlipidemia, unspecified; J44.9 Chronic obstructive pulmonary disease, unspecified; G89.29 Other chronic pain; R73.9 Hyperglycemia, unspecified; E55.9 Vitamin D deficiency, unspecified; I35.0 Nonrheumatic aortic (valve) stenosis; Z79.899 Other long term (current) drug therapy | CPT/HCPCS: 99212 ==

== ENCOUNTER 2024-12-03 13:51 | Outpatient (REF) | payer OTHER, SELFPAY ==
--- NOTE | 2024-12-03 13:55 | PFT_ITS ---
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 Decreased expiratory reserve volume suggests extrathoracic restriction likely secondary to abdominal obesity. MTDD
[2024-12-03 14:36] VITALS: PULSE 71; O2SAT 97
--- OUTSIDE RECORDS SUMMARY | 2024-12-03 16:52 | XMS_ITS | Clinical Summary ---
Author Organization [facility] Address [address] [facility] [address] [place] [phone] Phone Care Team Providers Care Asset Analyst Name Role Phone Allen Saeed MD Primary Care Provider [phone] Allergies No known active allergies Medications atorvastatin [...] VACCINE (1 - 1-dose 75+ series) 12/10/2018 INFLUENZA VACCINE (#1) 2024 01/09/2019 COVID-19 VACCINE (3 - 2024-2 6 season) 2024 04/14/2020, 04/14/2020 HEPATITIS A VACCINES Aged Out [...] topic Medical Devices Not on file Insurance MEDICARE REPLACEMENT MEDICARE PART A & B [facility] MEDICARE REPLACEMENT [place] [id number] MEDICARE PART A & B [facility] MEDICARE REPLACEMENT MEDICARE PART A & B [facility] MEDICARE REPLACEMENT MEDICARE PART A & B [facility] MEDICARE REPLACEMENT [place] [address] MEDICARE PART A & B [facility] MEDICARE REPLACEMENT MEDICARE PART A & B Care Teams Asset Analyst Relationship Specialty Start Date End Date Allen Saeed MD [address] [place] [address] PCP - General Internal Medicine 11/29/23 Additional Source Comments The information contained in this document represents components of the legal health record. It is not the complete legal health record.[facility]
--- OUTSIDE RECORDS SUMMARY | 2024-12-03 16:52 | XMS_ITS | Data Portability ---
Author Organization [facility], PAIN OFFICE Address [address] [facility] [address] [place] [address] Care Team Providers Care Compensation Consulting Manager Name Role Phone EL ROTHMAN Primary [...] zaprine 10 mg tablet 2019 020 glennikantan [id number], [address] [place], [place], [id number], 0 11:06:05 Patient TargetsNo targets recorded. Patient Instructions Encounter Date Encounter Id Patient Instructions Last Modified By Organization Details Last Modified Time 03/13/2019 [id number] She was advised against bed rest lasting longer than four days and to continue activities as tolerated. [email or web address] Not available 03/13/2019 14:01:49 03/27/2019 [id number] She was advised against bed rest lasting longer than four days and to continue activities as tolerated. [email or web address] Not available 03/27/2019 13:52:16 07/25/2019 [id number] She was advised against bed rest lasting longer than four days and to continue activities as tolerated. [email or web address] Not available 07/25/2019 11:18:09 08/15/2019 [id number] She was advised against bed rest lasting longer than four days and to continue activities as tolerated. [email or web address] Not available 08/15/2019 13:29:57 04/13/2021 [id number] Telehealth visit: The patient was located at [...] XR, knee No observ ation record ed. [facility] [address] [place] [address], [address], 07/25/2019 10:57:32 Result Notes None recorded. Problems Name Problem SNOMED Code Status Onset Date Resolution Date Notes Provider Name and Address Organization Details Recorded Time Osteoarthritis of knee 565906381 Active Ramon khan MD [address] [employer] [facility] , [facility] [address], [place], [address], [place] [facility] 8 14:20:03 Spinal stenosis of lumbar region 29599139 Active 2016 Ramon khan MD [address] [employer] [facility] , [address], [place], [address], [place] [facility] 7 13:33:09 Lumbosacral radiculitis 49950335 Active 2016 Ramon khan MD [address] [employer] [facility] , [address], [place], [address], [place] [facility] 7 13:33:10 Lumbosacral spondylosis without myelopathy 04480077 Active 2016 Ramon khan MD [address] [employer] , [address], [facility] [place], [address], [place] [facility] 7 13:33:11 Displacement of lumbar intervertebral disc without myelopathy 75632402 Active 2016 Ramon khan MD [address] [employer] , [address], [facility] [place], [address], [place] [facility] 7 13:33:12 Problem Notes None recorded. Procedures Surgical History Date Name Laterality Status Provider Name and Address Organization Details Recorded Time 08/15/19 20 Intra-articular Knee Steroid Injection completed Ramon Aquino MD [address] [employer] , [address], [facility] [place], [address], [place] [facility] 08/15/2019 13:30:09 07/25/19 20 Intra-articular Knee Steroid Injection completed Ramon Aquino MD [address] [employer] , [address], [facility] [place], [address], [place] [facility] 07/25/2019 11:18:23 03/27/19 20 Intra-articular Knee Steroid Injection completed Ramon Aquino MD [address] [employer] , [address], [facility] [place], [address], [place] [facility] 03/27/2019 13:52:30 03/13/19 20 Intra-articular Knee Steroid Injection completed Ramon Aquino MD [address] [employer] , [address], [place], [address], [place] [facility] 03/13/2019 14:02:01 12/13/19 19 Intra-articular Knee Steroid Injection completed Ramon Aquino MD [address] [employer] , [address], [place], [address], [place] [facility] 12/13/2018 09:21:27 11/29/19 19 Intra-articular Knee Steroid Injection completed Ramon Aquino MD [address] [employer] , [address], [place], [address], [place] [facility] 11/30/2018 15:09:31 08/23/19 19 Intra-articular Knee Steroid Injection completed Ramon Aquino MD [address] [employer] , [address], [place], [address], [place] [facility] 08/22/2018 14:41:48 08/09/19 19 Intra-articular Knee Steroid Injection completed Ramon Aquino MD [address] [employer] , [address], [place], [address], [place] [facility] 08/08/2018 13:47:26 05/03/19 19 Intra-articular Knee Steroid Injection completed Ramon Aquino MD [address] [employer] , [address], [place], [address], [place] [facility] 05/02/2018 14:19:29 04/18/19 19 Intra-articular Knee Steroid Injection completed Ramon Aquino MD [address] [employer] , [address], [place], [address], [place] [facility] 04/18/2018 14:34:57 01/17/20 18 Intra-articular Knee Steroid Injection completed Ramon Aquino MD [address] [employer] , [address], [place], [address], [place] [facility] 01/16/2018 13:47:30 01/04/20 18 Intra-articular Knee Steroid Injection completed Ramon Aquino MD [address] [employer] , [address], [place], [address], [place] [facility] 01/04/2018 10:08:01 10/12/19 18 Intra-articular Knee Steroid Injection completed Ramon Aquino MD [address] [employer] , [address], [place], [address], [place] [facility] 10/11/2017 15:04:53 09/28/19 18 Intra-articular Knee Steroid Injection completed Ramon Aquino MD [address] [employer] , [address], [place], [address], [place] [facility] 09/27/2017 14:19:25 08/23/19 18 Lumbar Epidural steroid injection under fluoroscopic guidance completed Ramon Aquino MD [address] [employer] , [address], [place], [address], [place] [facility] 08/22/2017 11:42:16 04/05/19 18 Lumbar Epidural steroid injection under fluoroscopic guidance completed Ramon Aquino MD [address] , [address], [place], [address], [place] [facility] 04/05/2017 13:39:16 01/26/20 17 Lumbar Epidural steroid injection under fluoroscopic guidance completed Ramon Aquino MD [address] , [address], [place], [address], [place] [facility] 01/25/2017 13:32:23 Cholecystectomy completed Maddy Orlando [place] [facility] 01/09/2017 14:22:01 Arthroscopic Surgery completed Maddyheaven Perry [place] - [facility] 01/09/2017 14:22:28 Cataract Surgery completed Maddyheaven Perry [place] [facility] 01/09/2017 14:23:02 total knee replacement completed Ramon Aquino MD [address] , [address], [place], [address], [place] [facility] 04/13/2021 15:49:42 [...] verbal numeric rating [Score] - Reported Systolic And Diastolic Provider Name and Address Organization Details Last Updated DateTime 0 160.02 cm 41.6 kg/m2 145559. 21 g 83 /min 97 % 97 % 4 147/81 mm[Hg] Lino khan [place] [facility] 0 13:42:58 Date Recorded Body height Heart rate Oxygen saturation Oxygen saturation in Arterial blood by Pulse oximetry Pain severity - 0-10 verbal numeric rating [Score] - Reported Systolic And Diastolic Provider Name and Address Organization Details Last Updated DateTime 0 160.02 cm 83 /min 97 % 97 % 4 147/81 mm[Hg] Lino khan [place] [facility] 0 13:30:13 Date Recorded Body height Heart rate Oxygen saturation Oxygen saturation in Arterial blood by Pulse oximetry Systolic And Diastolic Provider Name and Address Organization Details Last Updated DateTime 0 160.02 cm 91 /min 97 % 97 % 133/73 mm[Hg] Cheli Garcia [place] [facility] 0 10:58:50 Date Recorded Body height Pain severity - 0-10 verbal numeric rating [Score] - Reported Oxygen saturation Oxygen saturation in Arterial blood by Pulse oximetry Heart rate Body mass index (BMI) Body weight Systolic And Diastolic Provider Name and Address Organization Details Last Updated DateTime 0 160.02 cm 5 98 % 98 % 98 /min 41.6 kg/m2 342633. 21 g 90/42 mm[Hg] Ramon khan MD [address] [employer] [facility] , [address], [facility], [address] 0 11:05:37 Social History Question Answer Notes LastModified by Organizat ion Details LastModified Time Tobacco Smoking Status Never Smoker Not Available [facility] 12/06/2019 03:16:11 Which Illicit Or Recreational Drugs Have You Used? No [id number] Information not available 12/06/2019 Education Post Graduate Masters [email or web address] Information not available 01/09/2017 Marital Status Single [place] [address] Informatio n not available 01/09/2017 What Was The Date Of Your Most Recent Tobacco Screening? 08/22/2018 [id number] Information not available 12/06/2019 Sex: Unknown Functional Status Question Answer Note LastModified by Organizat ion Details LastModified Time What is your level of alcohol consumption? Moderate [id number] Information not available 12/06/2019 Are you currently employed? 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 Family History Relationship [...] Diagnosis SNOMED-CT Code Diagnosis ICD10 Code Diagnosis IMO Codes Diagnosis Note [id number] Ramon Aquino MD PAIN OFFICE [address] [facility],[address] [place] [address] 01/09/2017 14:01:45 01/09/2017 15:28:23 Spinal stenosis of lumbar region 10902297 M48.062 Lumbosacra l radiculitis 74682690 M54.17 Lumbosacra l spondylosis without myelopathy 28108753 M47.817 Displaceme nt of lumbar intervertebral disc without myelopathy 54614042 M51.26 08557 Ramon Aquino MD PAIN OFFICE [address] [place] [address] 01/25/2017 11:48:05 01/25/2017 15:32:18 Spinal stenosis of lumbar region 35509190 M48.062 Lumbosacra l radiculitis 18100465 M54.17 Lumbosacra l spondylosis without myelopathy 10602798 M47.817 Displaceme nt of lumbar intervertebral disc without myelopathy 07682048 M51.26 77294 Ramon Aquino MD PAIN OFFICE [address] [place] [address] 02/27/2017 12:53:03 02/27/2017 14:38:36 Spinal stenosis of lumbar region 98759505 M48.062 Lumbosacra l radiculitis 91046959 M54.17 Lumbosacra l spondylosis without myelopathy 66903449 M47.817 Displaceme nt of lumbar intervertebral disc without myelopathy 85131732 M51.26 52874 Ramon Aquino MD PAIN OFFICE [address] [place] [address] 04/05/2017 10:11:11 04/05/2017 13:45:56 Spinal stenosis of lumbar region 51038663 M48.062 Lumbosacra l radiculitis 48577041 M54.17 Lumbosacra l spondylosis without myelopathy 56459362 M47.817 Displaceme nt of lumbar intervertebral disc without myelopathy 78982161 M51.26 77431 Ramon Aquino MD PAIN OFFICE [address] [place] [address] 05/11/2017 13:29:35 05/11/2017 15:25:20 Spinal stenosis of lumbar region 58232220 M48.062 Lumbosacra l radiculitis 87669398 M54.17 Lumbosacra l spondylosis without myelopathy 88430863 M47.817 Displaceme nt of lumbar intervertebral disc without myelopathy 25461713 M51.26 10453 Ramon Aquino MD [facility] PAIN OFFICE [address] [place] [address] 07/03/2017 13:19:17 07/14/2017 08:55:46 Spinal stenosis of lumbar region 76958815 M48.062 Lumbosacra l radiculitis 82921341 M54.17 Lumbosacra l spondylosis without myelopathy 35701736 M47.817 Displaceme nt of lumbar intervertebral disc without myelopathy 02758161 M51.26 84559 Ramon Aquino MD PAIN OFFICE [address] [place] [address] 08/22/2017 10:51:32 08/22/2017 11:49:32 Spinal stenosis of lumbar region 42507957 M48.062 Lumbosacra l radiculitis 93320314 M54.17 Lumbosacra l spondylosis without myelopathy 03960455 M47.817 Displaceme nt of lumbar intervertebral disc without myelopathy 80277423 M51.26 85882 Ramon Aquino MD PAIN OFFICE [address] [place] [address] 09/27/2017 11:27:58 09/27/2017 14:47:38 Osteoarthritis of knee 432259894 M17.0 Spinal ha nosis of lumbar region 50003329 M48.062 Lumbosacra l radiculitis 74364795 M54.17 Lumbosacra l spondylosis without myelopathy 46522787 M47.817 Displaceme nt of lumbar intervertebral disc without myelopathy 97262726 M51.26 44304 Ramon Aquino MD [facility] PAIN OFFICE [address] [place] [address] 10/11/2017 11:26:34 10/11/2017 15:09:43 Lumbosacral radiculitis 93364500 M54.17 Osteoarthr itis of knee 145004002 M17.0 Spinal ha nosis of lumbar region 35590884 M48.062 Lumbosacra l spondylosis without myelopathy 61041130 M47.817 Displaceme nt of lumbar intervertebral disc without myelopathy 75338346 M51.26 80056 Ramno Aquino MD PAIN OFFICE [address] [place] [address] 12/12/2017 11:31:19 01/02/2018 15:18:40 Osteoarthritis of knee 639924847 M17.0 Spinal ha nosis of lumbar region 94204880 M48.062 Lumbosacra l radiculitis 26599746 M54.17 Lumbosacra l spondylosis without myelopathy 07820544 M47.817 Displaceme nt of lumbar intervertebral disc without myelopathy 47837811 M51.26 67079 Ramon Aquino MD PAIN OFFICE [address] [place] [address] 01/03/2018 14:23:47 01/04/2018 10:10:46 Osteoarthritis of knee 093550668 M17.0 Spinal ha nosis of lumbar region 23326468 M48.062 Lumbosacra l radiculitis 92312872 M54.17 Lumbosacra l spondylosis without myelopathy 85178407 M47.817 Displaceme nt of lumbar intervertebral disc without myelopathy 02762073 M51.26 73743 Ramon Aquino MD PAIN OFFICE [address] [place] [address] 01/16/2018 13:04:29 01/16/2018 13:49:28 Lumbosacral radiculitis 64865623 M54.17 Osteoarthr itis of knee 740848613 M17.0 Spinal ha nosis of lumbar region 43962273 M48.062 Lumbosacra l spondylosis without myelopathy 00111355 M47.817 Displaceme nt of lumbar intervertebral disc without myelopathy 76579480 M51.26 24761 Ramon Aquino MD PAIN OFFICE [address] [place] [address] 04/18/2018 13:04:05 04/18/2018 14:38:28 Osteoarthritis of knee 570082194 M17.0 Spinal ha nosis of lumbar region 69298976 M48.062 Lumbosacra l radiculitis 08054198 M54.17 Lumbosacra l spondylosis without myelopathy 48435373 M47.817 Displaceme nt of lumbar intervertebral disc without myelopathy 99662692 M51.26 60459 Ramon Aquino MD PAIN OFFICE [address] [place] [address] 05/02/2018 13:18:56 05/02/2018 14:22:08 Lumbosacral radiculitis 38770481 M54.17 Osteoarthr itis of knee 241523375 M17.0 Spinal ha nosis of lumbar region 38395950 M48.062 Lumbosacra l spondylosis without myelopathy 36993761 M47.817 Displaceme nt of lumbar intervertebral disc without myelopathy 60924198 M51.26 76583 Ramon Aquino MD PAIN OFFICE [address] [place] [address] 08/08/2018 13:07:47 08/08/2018 13:52:31 Osteoarthritis of knee 826776861 M17.0 Spinal ha nosis of lumbar region 50992611 M48.062 Lumbosacra l radiculitis 19851774 M54.17 Lumbosacra l spondylosis without myelopathy 46026817 M47.817 Displaceme nt of lumbar intervertebral disc without myelopathy 25259481 M51.26 12499 Ramon Aquino MD PAIN OFFICE [address] [place] [address] 08/22/2018 13:44:14 08/22/2018 14:44:06 Lumbosacral radiculitis 99937723 M54.17 Osteoarthr itis of knee 751435161 M17.0 Spinal ha nosis of lumbar region 37285300 M48.062 Lumbosacra l spondylosis without myelopathy 08766407 M47.817 Displaceme nt of lumbar intervertebral disc without myelopathy 03129200 M51.26 45144 Ramon Aquino MD PAIN OFFICE [address] [place] [address] 11/28/2018 15:07:37 11/30/2018 15:11:20 Osteoarthritis of knee 211586220 M17.0 Spinal ha nosis of lumbar region 85020431 M48.062 Lumbosacra l radiculitis 51862362 M54.17 Lumbosacra l spondylosis without myelopathy 24225879 M47.817 Displaceme nt of lumbar intervertebral disc without myelopathy 82994320 M51.26 92505 Ramon Aquino MD PAIN OFFICE [address] [place] [address] 12/12/2018 15:26:51 12/13/2018 09:57:44 Lumbosacral radiculitis 63604841 M54.17 Osteoarthr itis of knee 537918967 M17.0 Spinal ha nosis of lumbar region 69904287 M48.062 Lumbosacra l spondylosis without myelopathy 78625963 M47.817 Displaceme nt of lumbar intervertebral disc without myelopathy 69240175 M51.26 38202 Ramon Aquino MD PAIN OFFICE [address] [place] [address] 03/13/2019 13:41:19 03/13/2019 14:04:27 Osteoarthritis of knee 449978654 M17.0 Spinal ha nosis of lumbar region 75831035 M48.062 Lumbosacra l radiculitis 20205822 M54.17 Lumbosacra l spondylosis without myelopathy 52754679 M47.817 Displaceme nt of lumbar intervertebral disc without myelopathy 34964792 M51.26 11028 Ramon Aquino MD PAIN OFFICE [address] [place] [address] 03/27/2019 13:02:41 03/27/2019 13:54:11 Lumbosacral radiculitis 18622438 M54.17 Osteoarthr itis of knee 041903700 M17.0 Spinal ha nosis of lumbar region 71840542 M48.062 Lumbosacra l spondylosis without myelopathy 97102048 M47.817 Displaceme nt of lumbar intervertebral disc without myelopathy 75177697 M51.26 93902 Ramon Aquino MD [facility] PAIN OFFICE [address] [facility] [place] [address] 07/25/2019 10:49:41 07/25/2019 11:20:21 Osteoarthritis of knee 072590342 M17.0 Spinal ha nosis of lumbar region 54526534 M48.062 Lumbosacra l radiculitis 19958550 M54.17 Lumbosacra l spondylosis without myelopathy 54914286 M47.817 Displaceme nt of lumbar intervertebral disc without myelopathy 29838122 M51.26 66770 Ramon Aquino MD [facility] PAIN OFFICE [address] [address] [facility] [place] [address] 08/15/2019 11:01:12 08/15/2019 13:42:11 Lumbosacral radiculitis 88855117 M54.17 Osteoarthr itis of knee 534690243 M17.0 Spinal ha nosis of lumbar region 74440308 M48.062 Lumbosacra l spondylosis without myelopathy 32517073 M47.817 Displaceme nt of lumbar intervertebral disc without myelopathy 91875258 M51.26 26993 Ramon Aquino MD SV PAIN OFFICE [address] [address] [facility] [place] [address] 04/13/2021 15:45:02 04/14/2021 08:58:24 Lumbosacral radiculitis 88449457 M54.17 Osteoarthr itis of knee 641731097 M17.0 Spinal ha nosis of lumbar region 60464090 M48.062 Lumbosacra l spondylosis without myelopathy 21820541 M47.817 Displaceme nt of lumbar intervertebral disc without myelopathy 68351356 M51.26 Health Concerns Section Related Observation LastModified by Organization Detai ls LastModified Time None Recorded Concern Status LastModified by Organization Details LastModified Time None Recorded Advance Directives Directive None Recorded Payers Insurance Date Sequence Insurance Name Policy Number Policy Tavarez Covered Member ID Tavarez Member ID Guarantor Name 04/13/2021 1 [facility] (MEDICARE REPLACEMENT/A DVANTAGE - HMO) [facility] Gayla Jimenez [id number] Gayla Jimenez 03/27/2019 2 MEDICARE B-[place]: [facility] Gayla Jimenez [id number] Gayla Jimenez Notes Date Note Type Note Provider Name and Address Organization Details Recorded Time 03/13/2019 text/html She is here for a left knee steroid injection under ultrasound guidance. X-ray of both knees shows marked medial femorotibial joint space narrowing due to osteoarthritis. Ramon Aquion MD [address] [facility] , [address], [place], [address], [place] [facility] 03/14/2019 10:22:52 03/27/2019 text/html She is here for a right knee steroid injection under ultrasound guidance Ramon Aquino MD [address] , [address], [place], [address], [place] [facility] 03/27/2019 14:15:44 07/25/2019 text/html She is here for a left knee steroid injection under ultrasound guidance. X-ray of both knees shows marked medial femorotibial joint space narrowing due to osteoarthritis. Ramon Aquino MD [address] , [address], [place], [address], [place] [facility] 07/25/2019 14:13:36 08/15/2019 text/html She is here for a right knee steroid injection under ultrasound guidance [facility]on Aquino MD [address] [facility] , [address], [place], [address], [place] [facility] 08/16/2019 [...] feels better. Ramon Aquino MD [address] , [address], [place], [address], [place] [facility] 04/14/2021 09:18:33 OBGyn Episode No OBEpisode recorded.
== END 2024-12-03 13:52 | disposition home or self-care (01) ==
LOC: HO.RESP 13:51
PROVIDERS: PCP Internal Medicine; Visit Provider Internal Medicine
DX: J44.9 Chronic obstructive pulmonary disease, unspecified (principal)
CPT/HCPCS: 94060; 94640; 94727; 94729

== ENCOUNTER → 2024-12-03 13:55 | Outpatient (BNV) | payer OTHER, SELFPAY | PROVIDERS: PCP Internal Medicine; Visit Provider Internal Medicine Pulmonary Disease | DX: J98.4 Other disorders of lung (principal) | CPT/HCPCS: 94060; 94727; 94729 ==

== ENCOUNTER 2025-01-07 14:48 | Outpatient (AMB) | payer OTHER, SELFPAY ==
[2025-01-07 14:56] VITALS: BP 126/68; PULSE 78; BMI 39.4
--- NOTE | 2025-01-07 14:56 | A.OFFVIS_ITS ---
Vital Signs 01/07/25 14:56 Height 5 ft 3 in Weight 222 lb 10.67 oz BMI 39.4 BP 126/68 Blood Pressure Location Lt brachial Position Sitting Pulse 78 Pulse Source Monitor Intake Visit Reasons: overdue f/u after echo (April) Allergies N.K.D.A. Allergy (Unknown, Uncoded 09/09/24 13:19) unknown Medication List - Last Reconciled 01/07/25 by ALFIE Madrigal acetaminophen 1,000 mg (2 x 500 mg) PO BID albuterol sulfate 90 mcg/actuation 2 puffs PO Q4H PRN aspirin 81 mg PO DAILY atorvastatin 80 mg PO DAILY Breo Ellipta 200-25 mcg/dose (fluticasone furoate-vilanterol) 1 inh inhalation DAILY NS cholecalciferol (vitamin D3) 25 mcg PO DAILY diphenhydramine HCl (Benadryl) 25 mg PO BID gabapentin 1 tabl qAM , 2 tabl q PM orally once; incontinence pad, liner, disp (Poise Pads) 1 eight times a day Incruse Ellipta 62.5 mcg/actuation (umeclidinium) 1 inh inhalation BEDTIME NS montelukast 10 mg PO DAILY ropinirole 0.5 mg PO DAILY sertraline 100 mg PO DAILY vitamin B complex 1 tab PO DAILY HPI HPI overdue f/u after echo (April): Details: The patient is an 79-year-old female who presents for follow-up of aortic stenosis. Her last visit was on 05/02/2023. Her cardiac history is significant for moderate aortic stenosis, on echocardiogram from 05/02/2024 that showed an ejection fraction of 54%. A nuclear stress test on 06/30/2023 showed normal myocardial perfusion imaging. Her past medical history also includes morbid obesity, COPD, hyperlipidemia and musculoskeltal issues. The patient reports a gradual increase in shortness of breath over the last year , which requires her to stop and catch her breath while walking. She has also experienced an increase in wheezing lately which she relates to her COPD. She reports compliance with meds and uses three different inhalers. She denies any chest pain, palpitations, dizziness, or orthopnea. 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 Lab work from 05/21/2024 showed an LDL of 73, normal AST and ALT, and a creatinine of 0.96. [facility] Medical History Hyperkalemia Aortic stenosis Annual physical exam Iron deficiency Hyperglycemia Depression Pain of left thumb Pneumonia Sinusitis, acute History of PFTs History of mammogram Osteoarthritis Hyperlipidemia Asthma Surgical History Hx of cardiac cath Family History Father No problems noted. Mother No problems noted. Social History Housing: House Patient Tobacco Use Status: Never used Tobacco e-Cigarette/Vaping Use: Never Used service: No Current occupational status: retired Cognitive needs: No Hearing needs: No Vision needs: Yes Review of Systems Const All systems reviewed & are unremarkable except as noted in HPI and below Denies weakness ENT Denies dizziness Card Denies chest pain, Denies chest pain with activity, Denies syncope, Denies rapid heart rate, Denies pedal edema, Denies edema, Denies leg edema, Denies lightheadedness, Denies palpitations, Reports dyspnea, Reports dyspnea on exertion and Denies orthopnea Resp Denies cough, Reports dyspnea and Reports dyspnea on exertion GI Denies hematochezia and Denies change in stool character Musc Denies abnormal gait, Denies muscle cramps, Denies muscle weakness, Denies numbness, Denies radiating pain into limb and Denies tingling Neuro Denies abnormal gait, Denies dizziness, Denies syncope, Denies numbness, Denies tingling and Denies weakness Endo Denies palpitations Physical Exam Vital Signs: Last Vital Signs Pulse 78 01/07/25 14:56 BP 126/68 01/07/25 14:56 BMI result Body Mass Index 39.4 Const General: cooperative, healthy appearing, comfortable and no acute distress Orientation/consciousness: patient oriented x3 Neck Neck: Yes normal visual inspection and Yes no JVD Carotids: normal carotid upstroke Resp Effort & Inspection: normal respiratory effort Auscultation: clear to auscultation bilaterally, no crackles, no rales, no rhonchi and no wheezes Cardio Jugular venous distension: no JVD Rate: regular rate Rhythm: regular rhythm Heart sounds: no gallops, Murmur heart sound present (systolic murmur, loudest at right sternal border) systolic and no rubs Peripheral pulses: Peripheral pulses 2+ throughout Neuro General: patient oriented x3 Extrem General: Yes normal to inspection and No no pedal edema Psych Appearance: grossly normal Mental Status: mental status grossly normal Speech and movement: Normal speech and movement present Office Procedures EKG Details: Today, read by me, normal sinus rhythm, rate 78, QTC 410 milliseconds [id number], Complete Assessment & Plan Assessment & Plan (1) Aortic stenosis: Comment: Mild September 2019, mild -mod 10/11,mod 05/2023, moderate 04/2024 follow-up with Cardiology Code(s): I35.0 - Nonrheumatic aortic (valve) stenosis Category: Medical Plan: History of aortic stenosis, currently moderate based on last echocardiogram 04/2024. She does have some shortness of breath with exertion which has increased in the last year. This could be COPD or valve progression. Will update echocardiogram and plan to call her with the results. Continue aspirin and atorvastatin use. Cardinal signs of severe discussed. (2) Shortness of breath on exertion: Code(s): R06.02 - Shortness of breath Category: Medical Plan: As above (3) COPD (chronic obstructive pulmonary disease): Code(s): J44.9 - Chronic obstructive pulmonary disease, unspecified Category: Medical Plan: As above. Followed by her PCP (4) Obesity: Code(s): E66.9 - Obesity, unspecified Category: Medical Plan: May contribute to her symptom of shortness of breath. Plan I discussed with the patient that her aortic stenosis is still considered moderate based on her most recent echocardiogram in April. I explained that while her shortness of breath has gradually worsened, which could be from her COPD or could indicate that her condition has progressed to severe stenosis, which is the typical indication for valve replacement. I acknowledged her desire to have the valve replacement surgery done sooner than later but reiterated the current surveillance approach. I informed her that I can hear the murmur associated with her valve. I advised her that I will be reviewing her prior echocardiogram to assess the rate of change of her valve disease, which will guide the timing of her next study, and we will follow up accordingly. Orders: Orders CA echo transthoracic complete 01/31/25 Jasmina Paige, ALFIE I35.0 - Nonrheum atic aortic (valve) stenosis Medications: Changed From gabapentin 1 tabl qAM , 2 tabl q PM orally 2 times a day; 270 caps 3RF To gabapentin 1 tabl qAM , 2 tabl q PM orally once; Hoda Valentine MD Patient Instructions: - Continue taking yourmedications prescribed. - Your aortic stenosis is currently moderate and does not require surgery at this time. - Please contact our office immediately if you experience any new or worsening chest pain, increased shortness of breath, or episodes of dizziness or feeling faint. - We will schedule a repeat heart ultrasound for reevaluation of the valve. Patient was informed and verbally consented to the use of an ambient scribe for clinic note documentation during this visit. Visit time spent on chart review, interview, assessment, orders, documentation. Coding Level of Care Code Est Pt Level 4 (95939) Complex EM visit Add On G2211 Diagnoses Aortic stenosis I35.0 Shortness of breath on exertion R06.02 COPD (chronic obstructive pulmonary disease) J44.9 Obesity E66.9 CPT Codes EKG - CPT: 97153-[id number], Complete ([id number]) Time Spent (min) 28
== END 2025-01-07 15:21 | disposition home or self-care (01) ==
LOC: HO.HCS 14:49
PROVIDERS: PCP Internal Medicine; Visit Provider Nurse Practitioner Family
DX: I35.0 Nonrheumatic aortic (valve) stenosis (principal); R06.02 Shortness of breath; J44.9 Chronic obstructive pulmonary disease, unspecified; E66.9 Obesity, unspecified
CPT/HCPCS: 93010; 99214; G2211

== ENCOUNTER → 2025-01-07 14:48 | Outpatient (BNVA) | payer OTHER, SELFPAY | PROVIDERS: PCP Internal Medicine; Visit Provider Nurse Practitioner Family | DX: I35.0 Nonrheumatic aortic (valve) stenosis (principal); J44.9 Chronic obstructive pulmonary disease, unspecified; E66.9 Obesity, unspecified; Z68.39 Body mass index [BMI] 39.0-39.9, adult; Z79.899 Other long term (current) drug therapy | CPT/HCPCS: 93005; 99212 ==

== ENCOUNTER 2025-02-10 14:59 | Outpatient (REF) | payer OTHER, SELFPAY ==
--- NOTE | ~2025-02-10 | XR_ITS ---
EXAMINATION: XR CHEST CLINICAL INFORMATION: R05.9 - Cough, unspecified COMPARISON: 12/17/2019 TECHNIQUE: PA and lateral chest x-ray FINDINGS: Lungs are clear. Cardiac and mediastinal silhouette is stable. There is no pneumothorax or pleural effusion. Flowing anterior aspects are present in the thoracic spine. XR/XR chest 2V IMPRESSION: No acute disease Electronically signed by: José Antonio Cortes MD 02/10/2025 05:34 PM EST
[2025-02-11 11:57] LABS: Resp Syncy Virus RNA Qual PCR NEGATIVE (Negative); SARS COV2 PCR INHOUSE NEGATIVE (Negative)
== END 2025-02-10 15:00 | disposition home or self-care (01) ==
LOC: HO.HMGCX 14:59
PROVIDERS: Physician Assistant Medical; PCP Internal Medicine; Visit Provider Internal Medicine
DX: R09.81 Nasal congestion (principal); R05.9 Cough, unspecified; R50.9 Fever, unspecified; R51.9 Headache, unspecified; J02.9 Acute pharyngitis, unspecified; R09.3 Abnormal sputum; R06.2 Wheezing
CPT/HCPCS: 71046; 87637; 94640; 99212

== ENCOUNTER 2025-02-10 14:59 | Outpatient (AMB) | payer OTHER, SELFPAY ==
--- NOTE | 2025-02-10 16:15 | MHC.OFFWIV ---
Intake Vital Signs 02/10/25 16:16 Height 5 ft 3 in Weight 230 lb BMI 40.7 BP 120/80 Blood Pressure Location Lt brachial Position Sitting Pulse 113 H Pulse Source Pulse Oximeter Temp 101.7 F H Temp Source Oral Pulse Oximetry (%) 93 Oxygen Delivery Method Room Air Intake Visit Reasons: EP lung congestion and fever and SOB Intake Note: pt is here for difficulty breathing, fever since monday. Patient states inhalers are not helping her anymore. Viral swab done in office today. Patient Tobacco Use Status: Never used Tobacco Allergies N.K.D.A. Allergy (Unknown, Uncoded 02/10/25 16:21) unknown HPI HPI Comments History of Present Illness Details History - The patient is an 79 year old female presenting with symptoms that started on Monday night with a fever. - She reports vomiting last night and this morning, along with a recurring fever, headache, and a sensation of her lungs and head being filled. - Associated symptoms include a productive cough with yellow phlegm, ear pain, and a sore throat. - She denies any diarrhea. - Her past medical history is significant for both asthma and COPD. - She notes that her inhalers are not working as well as they used to and reports wheezing all night. - She has vomited twice but did not have any diarrhea. - She has no sick contacts. - She denies abd pain. Physical Exam General: Cooperative, healthy appearing, comfortable and no acute distress Orientation/consciousness: Patient oriented x3 Limitations: No limitations Head: Normal to inspection Ears: Hearing grossly normal bilaterally, external ears normal and TM's normal bilaterally Nose: Normal external nose present, normal nares present, and no nasal discharge present. Face and sinus: Sinuses nontender to palpation. Mouth: Normal oral and palatal mucosa present and moist mucous membranes noted. Throat: Tonsils normal. Uvula is midline. Posterior oropharynx with erythema and no exudates. Eyes: Appearance normal, both eyes and all related structures Neck: Normal visual inspection, full ROM. No lymphadenopathy noted. Respiratory: Wheezing noted. Diminished BS bilaterally. Normal respiratory effort, able to speak in complete sentences. No respiratory distress, not tachypneic, no tripod positioning and no use of accessory muscles. Cardiovascular: Regular rate and rhythm. Normal S1 and S2. No m/r/g noted. Skin: No rashes or lesions noted Patient was informed and verbally consented to the use of an ambient scribe for clinic note documentation during this visit [facility] Medical History Hyperkalemia Aortic stenosis Annual physical exam Iron deficiency Hyperglycemia Depression Pain of left thumb Pneumonia Sinusitis, acute History of PFTs History of mammogram Osteoarthritis Hyperlipidemia Asthma Surgical History Hx of cardiac cath Family History Father No problems noted. Mother No problems noted. Social History Housing: House Patient Tobacco Use Status: Never used Tobacco e-Cigarette/Vaping Use: Never Used service: No Current occupational status: retired Cognitive needs: No Hearing needs: No Vision needs: Yes Review of Systems Const All systems reviewed & are unremarkable except as noted in HPI and below Physical Exam Vital Signs: Last Vital Signs Temp 101.7 F H 02/10/25 16:16 Pulse 113 H 02/10/25 16:16 BP 120/80 02/10/25 16:16 Pulse Ox 93 02/10/25 16:16 Oxygen Delivery Method Room Air 02/10/25 16:16 BMI result Body Mass Index 40.7 Office Procedures Nebulizer Treatment Nebulizer Treatment [id number]-Jeaearmly/MDI RX initial, or Nebulizer Subsequent Treatment Office Meds albuterol sulfate 2.5 mg/3 mL (0.083 %) solution for nebulization Performing Provider: Kaitlin Bentley PA-C Performing Location: [facility] [place] [facility] Administered by: Kaitlin Bentley PA-C on 02/10/25 17:08 Dose Route Admin Location Dispensed Lot Number Expiration Date [facility] [employer] Advisor 2.5 mg inhalation 3 mL [id number] 09/19/26 [id number] ipratropium 0.5 mg-albuterol 3 mg (2.5 mg base)/3 mL nebulization soln Performing Provider: Kaitlin Bentley PA-C Performing Location: [facility] [place] [facility] Documented (not given) by: Kaitlin Bentley PA-C on 02/10/25 17:08 Dose Route Admin Location Dispensed Lot Number Expiration Date [employer] Advisor 3 mL inhalation mL Results Reviewed Results Reviewed: will review the CXR in the office Assessment & Plan Assessment & Plan (1) URI with cough and congestion: Code(s): J06.9 - Acute upper respiratory infection, unspecified Plan Most likely Acute Exacerbation Of Chronic Obstructive Pulmonary Disease And Asthma vs URI vs CAP vs bronchitis vs covid vs flu plan - The patient will receive an in-office nebulizer treatment for wheezing. - A chest x-ray has been ordered to rule out pneumonia. - The patient will be started on a Z-Quinn (azithromycin) for its anti-inflammatory properties and to address potential bacterial infection. - tessalon perles as needed for cough - prednisone burst for 5 days - A respiratory viral panel will be performed to test for COVID-19, influenza, and RSV. - tylenol or motrin as needed for pain or fever - follow up with PCP Orders: Orders AMB Nebulizer Treatment Today R05.9 - Cough, unspecified XR chest 2V Today R05.9 - Cough, unspecified Medications: New benzonatate 100 mg PO bid-tid PRN 21 caps 0RF Cough 7 days prednisone 40 mg (2 x 20 mg) PO DAILY 10 tabs 0RF 5 days azithromycin For 250 mg dose pack: take 500 mg today (day 1), then 250 mg for 4 days (days 2-5) PO 6 tabs 0RF ipratropium-albuterol 0.5 mg-3 mg(2.5 mg base)/3 mL 3 mL inhalation ONCE 3 mL 0RF R05.9 - Cough, unspecified Coding Level of Care Code Est Pt Level 4 (81353) Diagnoses URI with cough and congestion J06.9 CPT Codes Nebulizer Treatment - Nebulizer Treatment, initial or subsequent: 92223-Symtutupj/MDI RX initial, or Nebulizer Subsequent Treatment ([id number])
[2025-02-10 16:16] VITALS: BP 120/80; PULSE 113; TEMP 38.7; O2SAT 93; BMI 40.7
--- OUTSIDE RECORDS SUMMARY | 2025-02-10 18:13 | XMS_ITS | Clinical Summary ---
Author Organization [facility] Address [address] [address] Phone Care Team Providers Care Behavior Analyst Name Role Phone Allen Saeed MD Primary Care Provider [phone] Allergies No known active allergies Medications atorvastatin [...] Last Done Comments Adult Td,Tdap Booster 1945 DEPRESSION SCREENING 1955 PNEUMOCOCCAL VACCINES (50+ years) (1 of 1 [...] topic Medical Devices Not on file Insurance [facility] MEDICARE REPLACEMENT Member Subscriber Plan / Payer (Ef fective 2023-Present) Name:Gayla Jimenez Relation to Subscriber:Self Name:Gayla Jimenez Payer ID:[id number] (NAIC) Group ID:[id number] Type:Medicare Address: BOX [facility] [employer] [facility] MEDICARE PART A & B [facility] MEDICARE REPLACEMENT Member Subscriber Plan / Payer (Ef fective 2023-Present) Name:TonyGayla Relation to Subscriber:Self Name:TonyGayla Payer ID:[id number] (NAIC) Group ID:[id number] Type:Medicare Address: [address] [facility] [employer]UN [facility] MEDICARE PART A & B MEDICARE REPLACEMENT MEDICARE PART A & B [facility] MEDICARE REPLACEMENT MEDICARE PART A & B [facility] MEDICARE REPLACEMENT MEDICARE PART A & B [facility] MEDICARE REPLACEMENT [employer]UN [id number] MEDICARE PART A & B Care Teams Behavior Analyst Relationship Specialty Start Date End Date Allen Saeed MD [address] [place] [address] PCP - General Internal Medicine 11/29/23 Additional Source Comments The information contained in this document represents components of the legal health record. It is not the complete legal health record.[facility]
--- OUTSIDE RECORDS SUMMARY | 2025-02-10 18:13 | XMS_ITS | Data Portability ---
Author Organization [facility] Address [address] [facility] [address] [place] [address] Care Team Providers Care Travel Rn Name Role Phone EL ROTHMAN Primary Care [...] [email or web address] Not available 03/13/2019 14:01:48 03/27/2019 03/27/2019 aGyla Jimenez is a 72 year old woman [...] zaprine 10 mg tablet 2019 020 glennikantan [id number], [address] [place], [place], [id number], 0 11:06:05 Patient TargetsNo targets recorded. Patient Instructions Encounter Date Encounter Id Patient Instructions Last Modified By Organization Details Last Modified Time 03/13/2019 [id number] She was advised against bed rest lasting longer than four days and to continue activities as tolerated. [email or web address] Not available 03/13/2019 14:01:49 03/27/2019 [id number] She was advised against bed rest lasting longer than four days and to continue activities as tolerated. [email or web address] Not available 03/27/2019 13:52:16 07/25/2019 [id number] She was advised against bed rest lasting longer than four days and to continue activities as tolerated. [email or web address] Not available 07/25/2019 11:18:09 08/15/2019 [id number] She was advised against bed rest lasting longer than four days and to continue activities as tolerated. [email or web address] Not available 08/15/2019 13:29:57 04/13/2021 [id number] Telehealth visit: The patient was located at [...] XR, knee No observ ation record ed. [facility] [address] [place] [address], [address], 07/25/2019 10:57:32 Result Notes None recorded. Problems Name Problem SNOMED Code Status Onset Date Resolution Date Notes Provider Name and Address Organization Details Recorded Time Osteoarthritis of knee 115300299 Active Ramon khan MD [address] [facility] , [facility] [address], [place], [address], [place] [facility] 8 14:20:03 Spinal stenosis of lumbar region 99878186 Active 2016 Ramon khan MD [address] [facility] , [address], [place], [address], [place] [facility] 7 13:33:09 Lumbosacral radiculitis 82915460 Active 2016 Ramon khan MD [address] [facility] , [address], [place], [address], [place] [facility] 7 13:33:10 Lumbosacral spondylosis without myelopathy 34580196 Active 2016 Ramon khan MD [address] , [address], [facility] [place], [address], [place] [facility] 7 13:33:11 Displacement of lumbar intervertebral disc without myelopathy 46571059 Active 2016 Ramon khan MD [address] , [address], [facility] [place], [address], [place] [facility] 7 13:33:12 Problem Notes None recorded. Procedures Surgical History Date Name Laterality Status Provider Name and Address Organization Details Recorded Time 08/15/19 20 Intra-articular Knee Steroid Injection completed Ramon Aquino MD [address] , [address], [facility] [place], [address], [place] [facility] 08/15/2019 13:30:09 07/25/19 20 Intra-articular Knee Steroid Injection completed Ramon Aquino MD [address] , [address], [facility] [place], [address], [place] [facility] 07/25/2019 11:18:23 03/27/19 20 Intra-articular Knee Steroid Injection completed Ramon Aquino MD [address] , [address], [facility] [place], [address], [place] [facility] 03/27/2019 13:52:30 03/13/19 20 Intra-articular Knee Steroid Injection completed Ramon Aquino MD [address] , [address], [place], [address], [place] [facility] 03/13/2019 14:02:01 12/13/19 19 Intra-articular Knee Steroid Injection completed Ramon Aquino MD [address] , [address], [place], [address], [place] [facility] 12/13/2018 09:21:27 11/29/19 19 Intra-articular Knee Steroid Injection completed Ramon Aquino MD [address] , [address], [place], [address], [place] [facility] 11/30/2018 15:09:31 08/23/19 19 Intra-articular Knee Steroid Injection completed Ramon Aquino MD [address] , [address], [place], [address], [place] [facility] 08/22/2018 14:41:48 08/09/19 19 Intra-articular Knee Steroid Injection completed Ramon Aquino MD [address] , [address], [place], [address], [place] [facility] 08/08/2018 13:47:26 05/03/19 19 Intra-articular Knee Steroid Injection completed Ramon Aquino MD [address] , [address], [place], [address], [place] [facility] 05/02/2018 14:19:29 04/18/19 19 Intra-articular Knee Steroid Injection completed Ramon Aquino MD [address] , [address], [place], [address], [place] [facility] 04/18/2018 14:34:57 01/17/20 18 Intra-articular Knee Steroid Injection completed Ramon Aquino MD [address] , [address], [place], [address], [place] [facility] 01/16/2018 13:47:30 01/04/20 18 Intra-articular Knee Steroid Injection completed Ramon Aquino MD [address] , [address], [place], [address], [place] [facility] 01/04/2018 10:08:01 10/12/19 18 Intra-articular Knee Steroid Injection completed Ramon Aquino MD [address] , [address], [place], [address], [place] [facility] 10/11/2017 15:04:53 09/28/19 18 Intra-articular Knee Steroid Injection completed Ramon Aquino MD [address] , [address], [place], [address], [place] [facility] 09/27/2017 14:19:25 08/23/19 18 Lumbar Epidural steroid injection under fluoroscopic guidance completed Ramon Aquino MD [address] , [address], [place], [address], [place] [facility] 08/22/2017 11:42:16 04/05/19 18 Lumbar Epidural steroid injection under fluoroscopic guidance completed Ramon Aquino MD [address] , [address], [place], [address], [place] [facility] 04/05/2017 13:39:16 01/26/20 17 Lumbar Epidural steroid injection under fluoroscopic guidance completed Ramon Aquino MD [address] , [address], [place], [address], [place] [facility] 01/25/2017 13:32:23 Cholecystectomy completed Maddy Orlando [place] [facility] 01/09/2017 14:22:01 Arthroscopic Surgery completed Maddyheaven Perry [place] [facility] 01/09/2017 14:22:28 Cataract Surgery completed Maddyheaven Perry [place] [facility] 01/09/2017 14:23:02 total knee replacement completed Ramon Aquino MD [address] , [address], [place], [address], [place] [facility] 04/13/2021 15:49:42 [...] Not Available Not Available Not Available Fluad 2017- 65yr up(PF)45 mcg(15 mcgx3)/0.5 mL intramuscul ar syringe inject 0.5 millilite r intramusc ularly 08/22 completed Not Available Not Available Not Available ZTlido 1.8 % topical patch 04/13 completed Not Available Not Available Not Available Vitals Date Recorded Body height Body mass index (BMI) Body weight Heart rate Oxygen saturation Pain severity - 0-10 verbal numeric rating [Score] - Reported Systolic And Diastolic Provider Name and Address Organization Details Last Updated DateTime 0 160.02 cm 41.6 kg/m2 899508. 21 g 83 /min 97 % 4 147/81 mm[Hg] Lino khan [facility] 0 13:42:58 Date Recorded Body height Heart rate Oxygen saturation Pain severity - 0-10 verbal numeric rating [Score] - Reported Systolic And Diastolic Provider Name and Address Organization Details Last Updated DateTime 03/27/2019 160.02 cm 83 /min 97 % 4 147/81 mm[Hg] Lino khan [place] [facility] 0 13:30:13 Date Recorded Body height Heart rate Oxygen saturation Systolic And Diastolic Provider Name and Address Organization Details Last Updated DateTime 07/25/2019 160.02 cm 91 /min 97 % 133/73 mm[Hg] Cheli Garcia [facility] 07/25/2019 10:58:50 Date Recorded Body height Pain severity - 0-10 verbal numeric rating [Score] - Reported Oxygen saturation Heart rate Body mass index (BMI) Body weight Systolic And Diastolic Provider Name and Address Organization Details Last Updated DateTime 0 160.02 cm 5 98 % 98 /min 41.6 kg/m2 800362. 21 g 90/42 mm[Hg] Ramon khan MD [address] [facility] [address], [facility] [address], [place] [facility] 0 11:05:37 Social History Question Answer Notes LastModified by Organizat ion Details LastModified Time Tobacco Smoking Status Never Smoker Not Available [employer] 12/06/2019 03:16:11 Which Illicit Or Recreational Drugs Have You Used? No [id number] Information not available 12/06/2019 Education Post Graduate Masters [email or web address] Information not available 01/09/2017 Marital Status [place] [id number] Informatio n not available 01/09/2017 What Was The Date Of Your Most Recent Tobacco Screening? 08/22/2018 [id number] Information not available 12/06/2019 Sex: Unknown Functional Status Question Answer Note LastModified by Organizat ion Details LastModified Time What is your level of alcohol consumption? Moderate [id number] Information not available 12/06/2019 Are you currently employed? 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 Family History Relationship Description Onset Age of this Age Resolved Age Notes LastModified by Organization Details LastModified Time Father Chronic back pain [email or web address] Not available 2016 14:18:12 Father Alzheimer's disease [email or web address] Not available 2016 14:18:53 Sister Chronic back pain [email or web address] Not available 2016 14:18:12 Mother Heart disease [email or web address] Not available 2016 14:18:40 Paternal Grandmother Arthritis [email or web address] Not available 14:19:12 Medical History Condition Response Arthritis Y Depression Y Asthma Y High Cholesterol Y GERD/Reflux Y Gynecological HistoryNo gynecological history recorded. Obstetrics History GPAL:G 0 P 0 0 0 0 Past Encounters Encounter ID Performer Location Encounter Start Date Encounter Closed Date Diagnosis/Indication Diagnosis SNOMED-CT Code Diagnosis ICD10 Code Diagnosis IMO Codes Diagnosis Note [id number] Ramon Aquino MD [facility] [address] [facility],[address] [address] 01/09/2017 14:01:45 01/09/2017 15:28:23 Spinal stenosis of lumbar region 29099853 M48.062 Lumbosacra l radiculitis 43097582 M54.17 Lumbosacra l spondylosis without myelopathy 46858084 M47.817 Displaceme nt of lumbar intervertebral disc without myelopathy 81107127 M51.26 [id number] Ramon Aquino MD [facility] [address] [place] [address] 01/25/2017 11:48:05 01/25/2017 15:32:18 Spinal stenosis of lumbar region 20483796 M48.062 Lumbosacra l radiculitis 15405424 M54.17 Lumbosacra l spondylosis without myelopathy 92049798 M47.817 Displaceme nt of lumbar intervertebral disc without myelopathy 35488552 M51.26 [id number] Ramon Aquino MD PAIN OFFICE [address] [place] [address] 02/27/2017 12:53:03 02/27/2017 14:38:36 Spinal stenosis of lumbar region 11282626 M48.062 Lumbosacra l radiculitis 37113527 M54.17 Lumbosacra l spondylosis without myelopathy 15563312 M47.817 Displaceme nt of lumbar intervertebral disc without myelopathy 95362859 M51.26 [id number] Ramon Aquino MD [facility] [address] [place] [address] 04/05/2017 10:11:11 04/05/2017 13:45:56 Spinal stenosis of lumbar region 51577581 M48.062 Lumbosacra l radiculitis 37763140 M54.17 Lumbosacra l spondylosis without myelopathy 03115374 M47.817 Displaceme nt of lumbar intervertebral disc without myelopathy 44702560 M51.26 [id number] Ramon Aquino MD [facility] [address] [place] [address] 05/11/2017 13:29:35 05/11/2017 15:25:20 Spinal stenosis of lumbar region 21216083 M48.062 Lumbosacra l radiculitis 42122863 M54.17 Lumbosacra l spondylosis without myelopathy 97258549 M47.817 Displaceme nt of lumbar intervertebral disc without myelopathy 81991745 M51.26 [id number] Ramon Aquino MD [facility] [address] [facility] [place] [address] 07/03/2017 13:19:17 07/14/2017 08:55:46 Spinal stenosis of lumbar region 15481740 M48.062 Lumbosacra l radiculitis 64885127 M54.17 Lumbosacra l spondylosis without myelopathy 44236596 M47.817 Displaceme nt of lumbar intervertebral disc without myelopathy 20473629 M51.26 [id number] Ramon Aquino MD [facility] [address] [place] [address] 08/22/2017 10:51:32 08/22/2017 11:49:32 Spinal stenosis of lumbar region 73373703 M48.062 Lumbosacra l radiculitis 16854652 M54.17 Lumbosacra l spondylosis without myelopathy 99851547 M47.817 Displaceme nt of lumbar intervertebral disc without myelopathy 38571608 M51.26 [id number] Ramon Aquino MD PAIN OFFICE [address] [place] [address] 09/27/2017 11:27:58 09/27/2017 14:47:38 Osteoarthritis of knee 817208233 M17.0 Spinal ha nosis of lumbar region 16545058 M48.062 Lumbosacra l radiculitis 93714118 M54.17 Lumbosacra l spondylosis without myelopathy 61330341 M47.817 Displaceme nt of lumbar intervertebral disc without myelopathy 55171506 M51.26 [id number] Ramon Aquino MD [facility] [address] [place] [address] 10/11/2017 11:26:34 10/11/2017 15:09:43 Lumbosacral radiculitis 79106906 M54.17 Osteoarthr itis of knee 496725008 M17.0 Spinal ha nosis of lumbar region 30350858 M48.062 Lumbosacra l spondylosis without myelopathy 77727342 M47.817 Displaceme nt of lumbar intervertebral disc without myelopathy 77009861 M51.26 [id number] Ramon Aquino MD [facility] [address] [facility] [place] [address] 12/12/2017 11:31:19 01/02/2018 15:18:40 Osteoarthritis of knee 345390971 M17.0 Spinal ha nosis of lumbar region 88340070 M48.062 Lumbosacra l radiculitis 89810824 M54.17 Lumbosacra l spondylosis without myelopathy 19364979 M47.817 Displaceme nt of lumbar intervertebral disc without myelopathy 97989564 M51.26 [id number] Ramon Aquino MD PAIN OFFICE [address] [place] [address] 01/03/2018 14:23:47 01/04/2018 10:10:46 Osteoarthritis of knee 584215809 M17.0 Spinal ha nosis of lumbar region 91789667 M48.062 Lumbosacra l radiculitis 55121892 M54.17 Lumbosacra l spondylosis without myelopathy 33048751 M47.817 Displaceme nt of lumbar intervertebral disc without myelopathy 22389411 M51.26 [id number] Ramon Aquino MD [facility] [address] [place] [address] 01/16/2018 13:04:29 01/16/2018 13:49:28 Lumbosacral radiculitis 71475836 M54.17 Osteoarthr itis of knee 427394732 M17.0 Spinal ha nosis of lumbar region 23818136 M48.062 Lumbosacra l spondylosis without myelopathy 06081523 M47.817 Displaceme nt of lumbar intervertebral disc without myelopathy 11097143 M51.26 [id number] Ramon Aquino MD [facility] [address] [place] [address] 04/18/2018 13:04:05 04/18/2018 14:38:28 Osteoarthritis of knee 777793206 M17.0 Spinal ha nosis of lumbar region 72455668 M48.062 Lumbosacra l radiculitis 31212815 M54.17 Lumbosacra l spondylosis without myelopathy 79040992 M47.817 Displaceme nt of lumbar intervertebral disc without myelopathy 76901141 M51.26 [id number] Ramon Aquino MD [facility] [address] [place] [address] 05/02/2018 13:18:56 05/02/2018 14:22:08 Lumbosacral radiculitis 63315738 M54.17 Osteoarthr itis of knee 918369210 M17.0 Spinal ha nosis of lumbar region 19715904 M48.062 Lumbosacra l spondylosis without myelopathy 74995119 M47.817 Displaceme nt of lumbar intervertebral disc without myelopathy 47504000 M51.26 [id number] Ramon Aquino MD PAIN OFFICE [address] [place] [address] 08/08/2018 13:07:47 08/08/2018 13:52:31 Osteoarthritis of knee 231328525 M17.0 Spinal ha nosis of lumbar region 44524306 M48.062 Lumbosacra l radiculitis 02770535 M54.17 Lumbosacra l spondylosis without myelopathy 65447045 M47.817 Displaceme nt of lumbar intervertebral disc without myelopathy 55878741 M51.26 [id number] Ramon Aquino MD PAIN OFFICE [address] [place] [address] 08/22/2018 13:44:14 08/22/2018 14:44:06 Lumbosacral radiculitis 15182627 M54.17 Osteoarthr itis of knee 852888792 M17.0 Spinal ha nosis of lumbar region 90865468 M48.062 Lumbosacra l spondylosis without myelopathy 85318675 M47.817 Displaceme nt of lumbar intervertebral disc without myelopathy 03832242 M51.26 [id number] Ramon Aquino MD [facility] [address] [place] [address] 11/28/2018 15:07:37 11/30/2018 15:11:20 Osteoarthritis of knee 324829518 M17.0 Spinal ha nosis of lumbar region 90274503 M48.062 Lumbosacra l radiculitis 58512931 M54.17 Lumbosacra l spondylosis without myelopathy 94458457 M47.817 Displaceme nt of lumbar intervertebral disc without myelopathy 32599259 M51.26 [id number] Ramon Aquino MD PAIN OFFICE [address] [place] [address] 12/12/2018 15:26:51 12/13/2018 09:57:44 Lumbosacral radiculitis 54944254 M54.17 Osteoarthr itis of knee 955387991 M17.0 Spinal ha nosis of lumbar region 05769772 M48.062 Lumbosacra l spondylosis without myelopathy 73604050 M47.817 Displaceme nt of lumbar intervertebral disc without myelopathy 85665568 M51.26 [id number] Ramon Aquino MD PAIN OFFICE [address] [place] [address] 03/13/2019 13:41:19 03/13/2019 14:04:27 Osteoarthritis of knee 086939119 M17.0 Spinal ha nosis of lumbar region 18265229 M48.062 Lumbosacra l radiculitis 80198962 M54.17 Lumbosacra l spondylosis without myelopathy 70837957 M47.817 Displaceme nt of lumbar intervertebral disc without myelopathy 74449476 M51.26 [id number] Ramon Aquino MD PAIN OFFICE [address] [place] [address] 03/27/2019 13:02:41 03/27/2019 13:54:11 Lumbosacral radiculitis 80546599 M54.17 Osteoarthr itis of knee 931807494 M17.0 Spinal ha nosis of lumbar region 01562225 M48.062 Lumbosacra l spondylosis without myelopathy 43623442 M47.817 Displaceme nt of lumbar intervertebral disc without myelopathy 46009033 M51.26 [id number] Ramon Aquino MD PAIN OFFICE [address] [place] [address] 07/25/2019 10:49:41 07/25/2019 11:20:21 Osteoarthritis of knee 079138696 M17.0 Spinal ha nosis of lumbar region 22207518 M48.062 Lumbosacra l radiculitis 21486887 M54.17 Lumbosacra l spondylosis without myelopathy 84448508 M47.817 Displaceme nt of lumbar intervertebral disc without myelopathy 44651410 M51.26 [id number] Ramon Aquino MD PAIN OFFICE [address] [place] [address] 08/15/2019 11:01:12 08/15/2019 13:42:11 Lumbosacral radiculitis 65987165 M54.17 Osteoarthr itis of knee 036633721 M17.0 Spinal ha nosis of lumbar region 34313755 M48.062 Lumbosacra l spondylosis without myelopathy 12074296 M47.817 Displaceme nt of lumbar intervertebral disc without myelopathy 63424657 M51.26 [id number] Ramon Aquino MD PAIN OFFICE [address] [place] [address] 04/13/2021 15:45:02 04/14/2021 08:58:24 Lumbosacral radiculitis 62880575 M54.17 Osteoarthr itis of knee 881194988 M17.0 Spinal ha nosis of lumbar region 48602707 M48.062 Lumbosacra l spondylosis without myelopathy 65662855 M47.817 Displaceme nt of lumbar intervertebral disc without myelopathy 48236798 M51.26 Health Concerns Section Related Observation LastModified by Organization Detai ls LastModified Time None Recorded Concern Status LastModified by Organization Details LastModified Time None Recorded Advance Directives Directive None Recorded Payers Insurance Date Sequence Insurance Name Policy Number Policy Tavarez Covered Member ID Tavarez Member ID Guarantor Name 04/13/2021 1 [facility] (MEDICARE REPLACEMENT/A DVANTAGE - HMO) [facility] Gayla Jimenez [id number] Gayla Jimenez 03/27/2019 2 MEDICARE B-[place]: [facility] Gayla Jimenez [id number] Gayla Jimenez Notes Date Note Type Note Provider Name and Address Organization Details Recorded Time 03/13/2019 text/html She is here for a left knee steroid injection under ultrasound guidance. X-ray of both knees shows marked medial femorotibial joint space narrowing due to osteoarthritis. Ramon Aquino MD [address] [facility] , [address], [place], [address], [place] - [facility] 03/14/2019 10:22:52 03/27/2019 text/html She is here for a right knee steroid injection under ultrasound guidance Ramon Aquino MD [address] [facility] , [address], [place], [address], [place] - [facility] 03/27/2019 14:15:44 07/25/2019 text/html She is here for a left knee steroid injection under ultrasound guidance. X-ray of both knees shows marked medial femorotibial joint space narrowing due to osteoarthritis. Ramon Aquino MD [address] [facility] , [address], [place], [address], [place] - [facility] 07/25/2019 14:13:36 08/15/2019 text/html She is here for a right knee steroid injection under ultrasound guidance Ramon Aquino MD [address] [facility] , [address], [place], [address], [place] - [facility] 08/16/2019 08:57:28 04/13/2021 [...] feels better. Ramon Aquino MD [address] [facility] , [address], [place], [address], [place] - [facility] Management 04/14/2021 09:18:33 OBGyn Episode No OBEpisode recorded.
--- OUTSIDE RECORDS SUMMARY | 2025-02-10 18:13 | XMS_ITS | Clinical Summary ---
Author Organization [facility] Address [address] [place] [address] Phone Care Team Providers Care Business Segment Manager Name Role Phone Hoda Valentine MD Primary Care Provider [phone] Surgical History Surgery Date Site/Laterality Comments STEREOTACTIC [...] Done Comments Zoster Vaccines (1 of 2) 12/10/1993 Falls Risk Assessment 01/18/2022 Medicare Annual Wellness Visit 01/18/2022 Osteoporosis Screening (Bone Density Screening) 01/18/2022 Social Influencers of Health Screening 01/18/2022 Depression Screening 02/21/2024 COVID-19 Vaccine ( season) 2024 05/24/2024, 11/27/2023, 06/23/2023, Additional history exists Influenza Vaccine (#1) 2024 , 02/02/2023, 01/28/2022, Additional history exists DTaP,Tdap,and Td Vaccines (2 - Td or Tdap) 08/23/2030 08/23/2020 RSV Immunization Adult Patients Completed 02/23/2023 Pneumococcal Vaccine: 50+ Years Completed 06/14/2024, 10/18/2016 [...] patient's age to complete this topic Insurance [facility] Member Subscriber Plan / Payer (Ef fective 2023-Present) Name:Gayla Jimenez Relation to Subscriber:Self Name:Gayla Jimenez Sr Payer ID:[id number] Group ID:[id number] Type:Not on file Address: [facility] [address] [address] Advance Directives Documents on File Type Date 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
== END 2025-02-10 17:11 | disposition home or self-care (01) ==
PROVIDERS: PCP Internal Medicine; Visit Provider Physician Assistant Medical
DX: R05.9 Cough, unspecified (principal); J06.9 Acute upper respiratory infection, unspecified

== ENCOUNTER → 2025-02-10 16:42 | Outpatient (BNV) | payer OTHER, SELFPAY | PROVIDERS: PCP Internal Medicine; Visit Provider Radiology Diagnostic Radiology | DX: R05.9 Cough, unspecified (principal) | CPT/HCPCS: 71046 ==